=== PATIENT | male | born 1945 | race Caucasian/White ===

== ENCOUNTER 2016-12-14 03:43 | Inpatient (IN) ==
--- NOTE | 2016-12-07 11:28 | EKG Report ---
Test Performed on : 12/07/2016 10:10:01 AM Test Reason : pat Blood Pressure : / mmHG Vent. Rate : 052 BPM Atrial Rate : 052 BPM P-R Int : 168 ms QRS Dur : 070 ms QT Int : 470 ms P-R-T Axes : 018 -13 -07 degrees QTc Int : 437 ms Sinus bradycardia. Otherwise normal ECG When compared with ECG of 25-JAN-2008 10:57, aberrant conduction. is no longer present Inverted T waves have replaced nonspecific T wave abnormality in Inferior leads Confirmed by Chuck MADSEN, Jonah Alvarado ([id number]) on 12/08/2016 6:23:14 PM
[2016-12-07 11:50] LABS: HEMOGLOBIN 12.4 g/dL (14.0-18.0); MCHC 34.4 g/dL (33-37); MPV 11.3 FL (7.4-10.4)
[2016-12-07 12:11] LABS: INR 1.02; PROTIME 10.7 Seconds (9.2-11.7); PTT 26.1 Seconds (22.0-36.0)
[2016-12-07 12:37] LABS: CALCIUM 9.2 mg/dL (8.8-10.2); POTASSIUM 3.8 mmol/L (3.5-5.1)
[2016-12-14] MEDS ORDERED: KEFZOL 2 GM/D5W 2 GM/50 ML IVPB ONE (05:31)
[2016-12-14] MEDS ORDERED: LR 1,000 ML ONE (05:31)
[2016-12-14 09:41] LABS: URINE MICRO REVIEW NEEDED? NO; URINE SOURCE CATH
[2016-12-14 09:44] LABS: BILIRUBIN URINE NEGATIVE (NEGATIVE); BLOOD URINE TRACE (NEGATIVE); COLOR YELLOW; GLUCOSE URINE TRACE mg/dL (NEGATIVE); LEUKOCYTES URINE NEGATIVE (NEGATIVE); NITRITE URINE NEGATIVE (NEGATIVE); PROTEIN URINE 300 mg/dL (NEGATIVE); SP GRAVITY URINE 1.008; TURBIDITY URINE CLEAR (CLEAR); UR EPITHELIAL CELLS <10 /HPF (<10); URINE BACTERIA NEGATIVE /HPF; URINE RBC <10 /HPF (<10); URINE WBC <10 /HPF (<10); UROBILINOGEN URINE NORMAL (NORMAL)
[2016-12-14] MEDS ORDERED: NS 1,000 ML ONE (10:04)
[2016-12-14] MEDS ORDERED: FENTANYL ONE (10:16)
[2016-12-14] MEDS ORDERED: DIPRIVAN 1% ONE (10:16)
[2016-12-14] MEDS: PHENERGAN ONE ×2 (10:27→12:13)
[2016-12-14] MEDS ORDERED: EPHEDRINE ONE (11:13)
[2016-12-14] MEDS ORDERED: TORADOL ONE (11:13)
[2016-12-14] MEDS ORDERED: ZOFRAN ONE (11:13)
[2016-12-14] MEDS ORDERED: NEOSTIGMINE ONE (11:13)
[2016-12-14] MEDS ORDERED: LR 2,000 ML ONE (11:14)
[2016-12-14] MEDS ORDERED: ZEMURON ONE (11:14)
[2016-12-14] MEDS ORDERED: XYLOCAINE-MPF 2% ONE (11:14)
[2016-12-14] MEDS ORDERED: OFIRMEV 1000 MG/ISOTONIC SOLN 1,000 MG/100 ML BOTTLE ONE (11:14)
[2016-12-14] MEDS ORDERED: ROBINUL ONE (11:14)
[2016-12-14] MEDS ORDERED: DECADRON ONE (11:14)
[2016-12-14] MEDS ORDERED: QUELICIN (DOSE) ONE (11:14)
[2016-12-14] MEDS: MORPHINE ONE ×2 (12:00→12:10)
[2016-12-14] MEDS ORDERED: BENADRYL LIQUID PO PRN (15:38)
[2016-12-14] MEDS ORDERED: PHENERGAN PR PRN (15:38)
[2016-12-14] MEDS ORDERED: TYLENOL PO PRN (15:38)
[2016-12-14] MEDS ORDERED: BENADRYL IV PRN (15:38)
[2016-12-14] MEDS ORDERED: DITROPAN PO PRN (15:38)
[2016-12-14] MEDS ORDERED: B & O 15A SUPP PR PRN (15:38)
[2016-12-14] MEDS ORDERED: PHENERGAN IV PRN (15:38)
[2016-12-14] MEDS ORDERED: PHENERGAN PO PRN (15:38)
[2016-12-14] MEDS ORDERED: LABETALOL IV PRN (15:38)
[2016-12-14] MEDS ORDERED: SODIUM CHLORIDE 0.9% INJ PRN (15:38)
[2016-12-14] MEDS ORDERED: NORCO-7.5 PO PRN (15:38)
[2016-12-14] MEDS ORDERED: ZOFRAN IV PRN (15:38)
[2016-12-14] MEDS ORDERED: MORPHINE IV PRN (15:38)
[2016-12-14] MEDS ORDERED: NS 1,000 ML IV SCH (16:00)
[2016-12-14] MEDS ORDERED: NORCO-7.5 PO SCH (17:00)
[2016-12-14] MEDS: HUMALOG SUBQ SCH (17:40)
[2016-12-14] MEDS: CLEOCIN PO SCH (17:41)
[2016-12-14] MEDS: KEFZOL 2 GM/D5W 2 GM/50 ML IVPB IV SCH ×2 (17:41→23:29)
[2016-12-14] MEDS ORDERED: KEFLEX PO SCH (21:00)
[2016-12-14] MEDS ORDERED: ZOCOR PO SCH (21:00)
[2016-12-14] MEDS: PERIDEX MT SCH (22:00)
[2016-12-14] MEDS: COLACE PO SCH (22:01)
[2016-12-14] MEDS: HUMULIN R SUBQ SCH ×2 (22:01→22:03)
[2016-12-14] MEDS: FLEXERIL PO SCH (22:01)
[2016-12-15] MEDS: HUMULIN R SUBQ SCH (04:16)
[2016-12-15 05:47] LABS: HEMATOCRIT 32.6 % (42.0-52.0); HEMOGLOBIN 10.8 g/dL (14.0-18.0); MCH 30.3 PG (27-31); MCHC 33.1 g/dL (33-37); MCV 91.6 FL (81-99); MPV 11.5 FL (7.4-10.4); RBC 3.56 XMIL (4.7-6.1)
[2016-12-15 05:56] LABS: CALCIUM 8.7 mg/dL (8.8-10.2); POTASSIUM 4.4 mmol/L (3.5-5.1)
[2016-12-15] MEDS ORDERED: PRILOSEC PO SCH (07:00)
[2016-12-15 07:38] VITALS: BP 195/88
[2016-12-15] MEDS: PERIDEX MT SCH (08:39)
[2016-12-15] MEDS: FLEXERIL PO SCH (08:40)
[2016-12-15] MEDS: CLEOCIN PO SCH (08:40)
[2016-12-15] MEDS: COLACE PO SCH (08:40)
[2016-12-15] MEDS: KEFZOL 2 GM/D5W 2 GM/50 ML IVPB IV SCH (08:48)
[2016-12-15] MEDS: HUMALOG SUBQ SCH (08:49)
[2016-12-15] MEDS ORDERED: APRESOLINE PO SCH (09:00)
[2016-12-15] MEDS ORDERED: NORVASC PO SCH (09:00)
[2016-12-15] MEDS ORDERED: COZAAR PO SCH (09:00)
[2016-12-15] MEDS ORDERED: PERICOLACE PO SCH ×2 (09:00)
[2016-12-15] MEDS ORDERED: KEFLEX PO SCH (21:00)
--- NOTE | 2016-12-18 15:43 | OPERATIVE NOTE ---
PROCEDURE DATE: 12/14/2016 PREOPERATIVE DIAGNOSIS: Intermediate risk prostate adenocarcinoma, elevated prostate-specific antigen (PSA). POSTOPERATIVE DIAGNOSIS: Intermediate risk prostate adenocarcinoma, elevated prostate-specific antigen (PSA). PROCEDURES PERFORMED: Robotic-assisted laparoscopic prostatectomy with bilateral pelvic lymph node dissection and laparoscopic urethral suspension. SURGEON: Maxim Harris MD INDICATIONS: This is a 71-year-old male who presented with elevated PSA. He underwent 4K score testing, which was concerning. He underwent prostate biopsy, which revealed multifocal Umpire 7 and 6 prostate adenocarcinoma. He elected to proceed with intervention. He was counseled on the risks. FINDINGS: Watertight vesicourethral anastomosis, adequate urethral suspension. DESCRIPTION OF PROCEDURE: After obtaining informed consent, the patient was brought to the operating room. Perioperative antibiotics and general endotracheal anesthesia were administered. He was placed in lithotomy position and prepped and draped in a sterile fashion. An 18-Telugu Cooney catheter was introduced with return of clear urine. The Veress needle was introduced through the umbilicus and connected to a saline-filled syringe. We confirmed positive drop test, followed by aspiration of fluid in the syringe without evidence of GI contents or blood noted. We then insufflated his pneumoperitoneum to 15 mmHg. Following that, we marked out trocar sites in the standard prostatectomy fashion. A 12 mm camera trocar was introduced after Bovie electrocautery incised the skin. Examination of the abdominal cavity revealed no evidence of significant adhesions with the exception of descending/sigmoid colon to the pelvic sidewall. I placed the rest of the trocars under direct vision. The following that, the patient was placed in steep Trendelenburg position. The robot was docked. I began by taking down the colonic adhesions along the right pelvic sidewall. We then identified the level of the rectum and incised the peritoneum approximately 3 cm above the rectum. I was able to identify the right vas deferens. I dissected and transected, followed by identification and isolation of the right seminal vesicles. The same was done on the left side. We then dissected anterior to vas deferens to the level of the prostate and posterior to vas deferens to the level of perirectal planes. We then turned attention to dropping the bladder which was done by incising lateral to each medial umbilical ligament and accessing the space of Retzius. The endopelvic fascia was exposed. A small amount of fat was cleaned off the endopelvic fascia. It was incised, allowing us to follow the prostate laterally toward the apex. The puboprostatic ligaments were sharply incised. The superficial dorsal venous complex was controlled with Bovie electrocautery and the deep dorsal venous complex was controlled with 0 V- Loc suture in a [id number] fashion with periosteal elevation. We then turned attention to the level of the bladder neck, which was identified by tugging on the Cooney. Monopolar cautery was used to incise to the level of the bladder neck until the Cooney catheter was visible. The bladder neck was then excised circumferentially and the prostate was elevated with assisting the Cooney catheter anteriorly. I developed a plane between the prostate and the bladder, dissecting it posteriorly until eventually the vas deferens and seminal vesicles came into view. Once that was done, those were placed on anterior traction, allowing us to expose the neurovascular bundles. Hem-o-edmar clips were used and cautery was avoided and neurovascular bundles were reflected laterally. The prostate was then dissected off posteriorly, leaving us just with an apex. It was transected sharply. I used partial urethral length preservation technique given his positive samples of the apex of the prostate. The urethra was then transected sharply. The prostate was delivered and placed into the EndoCatch bag. The operative field was irrigated and there was small oozing just adjacent to the deep dorsal venous complex. This was controlled with Bovie electrocautery. Following that, hemostasis appeared to be adequate. We turned attention to pelvic lymph node dissection. On the left side, the bladder was reflected medially and the lymph node package was secured and removed with the following boundaries: External iliac vein superolaterally up to its confluence into the common iliac vein, pelvic sidewall laterally, perivesical fat medially, obturator vessels, and obturator vessels and nerve posteriorly. The nerve was seen and preserved. We then placed Surgicel hemostatic agent in the lymphadenectomy bed and decreased pneumoperitoneal pressure, without evidence of bleeding. We performed the exact same maneuver on the right side with identical landmarks. Surgicel hemostatic agent was placed in that lymphadenectomy bed as well. The lymph nodes were added to the EndoCatch bag. We then turned attention to the vesicoureteral anastomosis. A 3-0 V-Loc suture was used in a running fashion to reapproximate the perivesical and periurethral fascia. Those sutures were left intact. We then performed a formal anastomosis with a 3-0 running V-Loc suture by reapproximating the lip of the urethra and the bladder in a clockwise and counterclockwise fashion and cross-tying the sutures. We then placed a fresh 18-Telugu Cooney catheter and tested the vesicoureteral anastomosis with 240 mL of normal saline. There was no evidence of leakage. Once we were satisfied with that, we performed laparoscopic urethral suspension by using previously placed 3-0 V-Loc suture and suspending the urethra through the periosteum of the pubis on either side laterally. Once that was done, we decreased pneumoperitoneal pressure down to 3 mmHg without any evidence of active bleeding. We then undocked the robot. The trocars were removed, supraumbilical incision was extended, prostate was delivered, wounds were irrigated, and 0 Vicryl sutures were used to close supraumbilical as well as commissary assistant port fascia in an interrupted [id number] fashion. The wounds were irrigated again, 4-0 Monocryl sutures were used for subcuticular closure, and Dermabond skin adhesive was applied over the skin. He was extubated and taken to the PACU for further recovery. ESTIMATED BLOOD LOSS: 150 mL. COMPLICATIONS: None. DISPOSITION: To PACU and subsequently the floor for observation with Cooney catheter to gravity drainage. cc: Maxim Harris MD
== END 2016-12-15 09:57 | disposition home or self-care (01) ==
LOC: DIRADM 03:43 → 4N 14:51
PROVIDERS: ADMIT Urology; ATTEND Urology

== ENCOUNTER 2019-04-11 10:22 | Inpatient (IN) ==
--- NOTE | 2019-04-11 10:51 | Diag Imaging Result Doc PS360 ---
EXAM: CHEST-1 VIEW 04/11/2019 HISTORY: diff breathing TECHNIQUE: AP portable at 1044 COMMENT: There is dense alveolar opacification of the right lower lobe. There may be a small pleural effusion on the right. This was not present on 01/17/2019. IMPRESSION: Right lower lobe pneumonia. Electronically signed by Camilo Madden 04/11/2019 10:49 AM
[2019-04-11] MEDS ORDERED: DUONEB (A & A) INH ONE (11:00)
[2019-04-11] MEDS ORDERED: ZOFRAN IV ONE (11:00)
[2019-04-11] MEDS ORDERED: ROCEPHIN 1 GM in NS 50 ML IV ONE (11:15)
[2019-04-11] MEDS ORDERED: ZITHROMAX PO ONE (11:15)
[2019-04-11 12:04] LABS: BASO# 0.02 X1000 (0.0-0.2); BASO% 0.2 % (0.0-0.8); HEMATOCRIT 26.7 % (42.0-52.0); HEMOGLOBIN 8.7 g/dL (14.0-18.0); IMM GRAN# 0.02 X1000 (0.0-0.04); IMM GRAN% 0.2 % (0.0-0.5); LYMPH# 0.94 X1000 (1.2-3.4); LYMPH% 8.4 % (20.5-51.1); MCH 29.2 PG (27-31); MCHC 32.6 g/dL (33-37); MCV 89.6 FL (81-99); MONO# 1.08 X1000 (0.11-0.59); MONO% 9.7 % (1.7-9.3); MPV 11.9 FL (7.4-10.4); NEUT# 9.13 X1000 (1.4-6.5); NEUT% 81.5 % (42.2-75.2); PLT 194 X1000 (130-400); RBC 2.98 XMIL (4.7-6.1); WBC 11.19 X1000 (4.8-10.8)
[2019-04-11 12:08] LABS: INR 1.35; PROTIME 16.9 Seconds (11.0-16.0)
[2019-04-11 12:12] LABS: ALB/GLOB RATIO 1.1; ALBUMIN 3.5 g/dL (3.5-5.0); CALCIUM 8.2 mg/dL (8.8-10.2); CREATININE 3.1 mg/dL (0.7-1.2); TOTAL BILIRUBIN 0.76 mg/dL (0.20-1.00); TOTAL PROTEIN 6.8 g/dL (6.3-8.3)
--- NOTE | 2019-04-11 12:31 | PROVIDER DOCUMENTATION ---
This chart was entered by Kayla Crockett Scribe, acting as scribe for Steven Mar MD. HPI-General Adult - General Chief Complaint: N/V/D Stated Complaint: N/V Time Seen by Provider: 04/11/19 10:40 Source: patient Allergies/Adverse Reactions: Patient Allergies Allergy/AdvReac Type Severity Reaction Status Date / Time Sulfa (Sulfonamide Allergy RASH Verified 12/04/16 08:43 Antibiotics) Home Medications: Home Medication List Medication Instructions Recorded Confirmed Last Taken Type Losartan [Cozaar] 50 mg PO DAILY 08/25/12 12/07/16 12/13/16 05:00 History Amlodipine Besylate [Norvasc] 10 mg PO DAILY 12/04/16 12/07/16 12/13/16 05:00 History Cyclobenzaprine [Flexeril] 10 mg PO TID 12/04/16 12/07/16 12/13/16 20:00 History Hydrocodone/Acetaminophen [[place] 1 each PO TID 12/04/16 12/07/16 12/13/16 20:00 History 7.5-325 Tablet] Omeprazole [Prilosec] 40 mg PO DAILY 12/04/16 12/07/16 12/13/16 05:00 History Cephalexin [Keflex] 500 mg PO BID 12/07/16 12/07/16 12/13/16 20:00 History Clindamycin HCl 300 mg PO TID 12/07/16 12/07/16 12/13/16 20:00 History Hydralazine HCl 100 mg PO DAILY 12/07/16 12/07/16 12/13/16 05:00 History Insulin Aspart [Novolog] 45 unit SQ TID 12/07/16 12/07/16 12/13/16 20:00 History SIMVAstatin [Zocor] 40 mg PO QHS 12/07/16 12/07/16 12/13/16 20:00 History Sennosides/Docusate Sodium 1 each PO DAILY 12/07/16 12/07/16 12/13/16 05:00 History [Pericolace] Sennosides/Docusate Sodium 1 each PO DAILY 12/07/16 12/07/16 12/13/16 05:00 History [Senna-S Tablet] Cephalexin [Keflex] 500 mg PO BID #6 capsule 12/15/16 Unknown Rx Hydrocodone/Acetaminophen [[place] 1 each PO Q6HR PRN #15 tablet 12/15/16 Unknown Rx 10-325 Tablet] Oxybutynin [Ditropan] 5 mg PO TID PRN #20 tablet 12/15/16 Unknown Rx - History of Present Illness -Gen Adult Nature of Presenting Problems: Patient is a 73 year old male who presents with nausea, vomiting, diarrhea and shortness of breath. States symptoms have been present for 3 days. Denies abdominal pain and fever. Location of Pain/Injury: reports: none Pain Radiation: reports: no radiation Quality of Pain: reports: none Severity: reports: mild Onset/Duration: reports: 3 days ago Timing: reports: still present Context/Activities at Onset: reports: light activity Associated Symptoms: reports: diarrhea, nausea, shortness of breath, vomiting Similar Symptoms Previously?: Yes Recently seen or treated by another doctor?: No Review of Systems - Adult - REVIEW OF SYSTEMS - ADULT Constitutional: reports: no symptoms reported. denies: chills, fever, fatique Eyes: reports: no symptoms reported Ears, Nose, Mouth & Throat: reports: no symptoms reported Cardiovascular: reports: no symptoms reported Respiratory: reports: chronic cough, shortness of breath. denies: wheezing Gastrointestinal: reports: see HPI, diarrhea, nausea, vomiting. denies: abdom inal pain Genitourinary: reports: no symptoms reported Musculoskeletal: reports: no symptoms reported Integumentary: reports: no symptoms reported Neurological: reports: no symptoms reported Psychiatric: reports: no symptoms reported Endocrine: reports: no symptoms reported Hematologic/Lymphatic: reports: no symptoms reported Allergic/Immunologic: reports: no symptoms reported All Other Systems: Reviewed and Negative Past History - Adult - PAST MEDICAL HISTORY-ADULT Review of Records: reports: Old Records Reviewed, Nursing Assessment Review, Medications Reviewed, Social history reviewed & non-contributory. Major Childhood Illnesses: reports: denies history Cardiovascular: reports: HTN, hyperlipidemia Respiratory: reports: denies history Gastrointestinal: reports: GERD Obstetrical/Gynecological: reports: denies history Genitourinary: reports: prostate cancer Musculoskeletal: reports: denies history Neurological: reports: denies history Endocrine/Immune: reports: Diabetes Other Conditions: reports: denies history - PRIOR SURGERIES/PROCEDURES Surgical/Procedure History: reports: appendectomy, joint replacement - IMMUNIZATION STATUS Childhood Immunizations: See Nurse Assessment Flu Vaccine: See Nurse Assessment - FAMILY HISTORY Family History: reviewed, not pertinent - SOCIAL HISTORY Smoking: cigarettes (former) Substance Use: denies Physical Exam-General - PHYSICAL EXAM-ADULT Initial Vital Signs Reviewed: Yes - CONSTITUTIONAL General Appearance: alert, no apparent distress. negative: lethargic - EYES Eyes: PERRL/EOMI. negative: scleral icterus, sunken eyes - HEAD, EARS, NOSE, MOUTH & THROAT HENMT: normocephalic/atraumatic, other (dry mucous membranes). negative: angioedema - RESPIRATORY Respiratory: chest non-tender, crackles (bilateral bases), wheezing (bilateral), other (shallow breaths). negative: accessory muscle use - CARDIOVASCULAR Cardiovascular: normal peripheral pulses, regular rate, rhythm. negative: tachycardia - GASTROINTESTINAL (ABDOMEN) Abdominal Exam: normal bowel sounds, non tender, soft. negative: guarding, rebound - MUSCULOSKELETAL Extremity: non-tender, other (2 + pitting edema to bilateral lower extremities.) . negative: deformity, erythema - SKIN Integumentary: normal color, normal turgor, warm/dry. negative: diaphoresis, ecchymosis, rash - NEUROLOGIC Neurologic: grossly normal. negative: aphasia, facial droop - PSYCHIATRIC Psych/Mental Status: normal mood/affect, oriented x 3. negative: anxious Progress - PLAN OF CARE/RESULTS Progress/Plan/Lab Results: Vital Signs - 8 hr 04/11/19 10:27 Temperature 98.0 F Pulse Rate 113 H Respiratory Rate 24 Blood Pressure 144/65 O2 Sat by Pulse Oximetry 87 L Orders Category Date Time Status Cardiac Monitoring DIRECTED Care 04/11/19 10:30 Active IV Insertion ORDERED Care 04/11/19 10:30 Active Notify MD of + Sepsis Screen NOW Care 04/11/19 10:30 Active Notify Physician As Ordered Care 04/11/19 10:30 Active CHEST-1 VIEW [RAD] Stat Exams 04/11/19 10:30 Completed BLOOD CULTURE [BLDCUL] Stat Lab 04/11/19 10:30 Uncollected CBC WITH DIFF [HEME] Stat Lab 04/11/19 10:30 Uncollected CK PROFILE [SP CHEM] Stat Lab 04/11/19 10:30 Uncollected COMPREHENSIVE METABOLIC PANEL [CHEM] Stat Lab 04/11/19 10:30 Uncollected LACTATE, PLASMA [CHEM] Q3H Lab 04/11/19 10:30 Uncollected LACTATE, PLASMA [CHEM] Q3H Lab 04/11/19 13:30 Uncollected LACTATE, PLASMA [CHEM] Q3H Lab 04/11/19 16:30 Uncollected PROTIME WITH INR [COAG] Stat Lab 04/11/19 10:30 Uncollected PTT [COAG] Stat Lab 04/11/19 10:30 Uncollected TROPONIN T Stat Lab 04/11/19 10:30 Uncollected URINALYSIS W/POSS RFLX CULT [URINALYSIS] Stat Lab 04/11/19 10:30 Uncollected Oxygen Device Stat Oth 04/11/19 10:30 Active Result Diagrams: 04/11/19 11:24 04/11/19 11:24 - EKG 1 Time of EKG reading by physician:: 11:17 EKG Read and Signed by:: Steven Mar EKG Interpretation (*Must complete 3 of following elements*): Abnormal Rate: 125 Rhythm: atrial fibrillation with rapid ventricular response [place]: normal Comments: abnormal ECG - XRAY 1 XRAY Study: Chest Impression: See EMR Report (EXAM: CHEST-1 VIEW 04/11/2019 HISTORY: diff breathing TECHNIQUE: AP portable at 1044 COMMENT: There is dense alveolar opacification of the right lower lobe. There may be a small pleural effusion on the right. This was not present on 01/17/2019. IMPRESSION: Right lower lobe pneumonia. Electronically signed by Camilo Madden 04/11/2019 10:49 AM 04/11/19 1049 Interpreting Physician: Camilo Madden MD Dictated Date/Time: 04/11/19 1048 cc: Steven Mar MD; Kirby Osorio MD) - CONSULTS/PCP/HOSPITALIST Notification #1 *Consult/PCP/Hospitalist*: SHAKEEL Chandler for Hospitalist Time Discussed: 12:28 Reason/Comments: Dr. Mar consulted with Geraldine about patient. Consult Disposition: Will see in ED, Admit Departure - Departure Date of Disposition Decision: 04/11/19 Time of Disposition Decision: 12:28 DIAGNOSIS: CHEMO (acute kidney injury), Chronic atrial fibrillation Right lower lobe pneumonia Qualifiers: Pneumonia type: due to unspecified organism Qualified Code(s): J18.1 - Lobar pneumonia, unspecified organism Disposition: ADMITTED INPATIENT 09 Certified Medical Emergency: Emergent Condition: Stable Referrals and Follow-Ups: Kirby Osorio MD [Primary Care Provider] - - Critical Care Note This patient required my direct & personal management of CC.: No Attestation - Physician/ MCKINLEY Attestation Patient care was provided by Advanced Practice Provider:: No The physician spent face to face time with patient:: Yes Advanced Practice Provider documentation review:: Supervising physician onsite and consulted in the evaluation and care of this patient. The physician did have a face to face encounter with the patient. This chart was documented by the indicated scribe, (Kayla Crockett Scribe) and accurately reflects the services I performed and decisions made by me, Steven Mar MD, as attested by the provider's signature.
[2019-04-11 12:40] LABS: CK INDEX 0.4 (0.0-2.5); CK-MB 4.92 ng/mL (0.0-5.0)
[2019-04-11 12:57] LABS: URINE SOURCE CLEAN CATCH
[2019-04-11 13:01] LABS: BILIRUBIN URINE NEGATIVE (NEGATIVE); BLOOD URINE MODERATE (NEGATIVE); COLOR YELLOW; GLUCOSE URINE TRACE mg/dL (NEGATIVE); KETONE URINE TRACE mg/dL (NEGATIVE); LEUKOCYTES URINE NEGATIVE (NEGATIVE); NITRITE URINE NEGATIVE (NEGATIVE); PROTEIN URINE 300 mg/dL (NEGATIVE); SP GRAVITY URINE 1.019; TURBIDITY URINE HAZY (CLEAR); UROBILINOGEN URINE NORMAL (NORMAL)
[2019-04-11] MEDS ORDERED: CARDIZEM IV ONE ×2 (13:07→15:54)
[2019-04-11 13:14] LABS: UR EPITHELIAL CELLS <10 /HPF (<10); URINE BACTERIA NEGATIVE /HPF; URINE WBC <10 /HPF (<10)
[2019-04-11 13:19] LABS: ALLEN TEST YES; BE -1.9 mmoll (-3.0-3.0); BLOOD TYPE ARTERIAL; HCO3-(ACT) 23.3 mmoll (20.0-26.0); O2(CT) 12.1 mL/dL (15.0-23.0); O2HB 90.1 % (95.0-99.0); PCO2(98.6) 29 mmHg (35-45); PO2(98.6) 55 mmHg (60-100); SAMPLE BLOOD; SAO2 92.7 % (95.0-100.0); THB 9.5 g/dL (11.5-17.4); pH(98.6) 7.47 (7.35-7.45)
[2019-04-11 13:20] LABS: MODALITY CANNULA
[2019-04-11 14:05] LABS: URINE CASTS NONE SEEN
[2019-04-11] MEDS ORDERED: NS 1,000 ML IV SCH ×2 (14:24→15:59)
[2019-04-11] MEDS ORDERED: ZOFRAN IV PRN (14:24)
[2019-04-11] MEDS ORDERED: TYLENOL PO PRN (14:24)
[2019-04-11] MEDS ORDERED: LEVAQUIN 500 MG/D5W 500 MG/100 ML IVPB IV ONE (14:24)
--- NOTE | 2019-04-11 15:03 | ED EKG INTERP ---
This chart was entered by Kayla Crockett Scribe, acting as scribe for Steven Mar MD. EKG Interpretation - EKG Time of EKG reading by physician:: 13:10 EKG Read and Signed by:: Steven Mar EKG Interpretation (*Must complete 3 of following elements*): Abnormal (rhythm - atrial fibrillation with rapid ventricular responsive with premature ventricular or aberrantly conducted complexes) Rate: 122 [place]: normal Comments: nonspecific ST and T wave abnormality. Attestation - Physician/ MCKINLEY Attestation The physician spent face to face time with patient:: Yes Advanced Practice Provider documentation review:: Supervising physician onsite and consulted in the evaluation and care of this patient. The physician did have a face to face encounter with the patient. This chart was documented by the indicated scribe, (Kayla Crockett Scribe) and accurately reflects the services I performed and decisions made by me, Steven Mar MD, as attested by the provider's signature.
--- NOTE | 2019-04-11 15:08 | EKG Report ---
Test Performed on : 04/11/2019 11:17:49 AM Test Reason : ED. No order in [place] Blood Pressure : / mmHG Vent. Rate : 125 BPM Atrial Rate : 300 BPM P-R Int : 000 ms QRS Dur : 062 ms QT Int : 316 ms P-R-T Axes : 000 000 -11 degrees QTc Int : 456 ms Atrial fibrillation. with rapid ventricular response. Abnormal ECG When compared with ECG of 07-DEC-2016 10:10, Atrial fibrillation. has replaced Sinus rhythm. Vent. rate has increased BY [address] now depressed in Anterior leads T wave amplitude has decreased in Anterior leads Unconfirmed Result
--- NOTE | 2019-04-11 15:08 | EKG Report ---
Test Performed on : 04/11/2019 1:10:39 PM Test Reason : ADMIT Blood Pressure : / mmHG Vent. Rate : 122 BPM Atrial Rate : 090 BPM P-R Int : 000 ms QRS Dur : 066 ms QT Int : 320 ms P-R-T Axes : 000 001 -24 degrees QTc Int : 456 ms Atrial fibrillation. with rapid ventricular response. with premature ventricular or aberrantly conduc jose complexes. Nonspecific ST and T wave abnormality Abnormal ECG When compared with ECG of 11-APR-2019 11:17, (Unconfirmed) No significant change was found Unconfirmed Result
--- NOTE | 2019-04-11 15:34 | HISTORY AND PHYSICAL ---
PRIMARY CARE PROVIDER: DR. Kirby Osorio. RENAL: Dr. Steiner. CHIEF COMPLAINT: Nausea, vomiting, diarrhea. HISTORY OF PRESENT ILLNESS: Mr. Cotton is a 73-year-old male who carries a past medical history of prostate cancer status post prostatectomy, diabetes mellitus type 2, hypertension, hypercholesterolemia, acid reflux, who reported he has been having nausea and vomiting since Monday, too many times to count. He was positive for cough, fever, chills. He denies being around any sick contacts. However, he was on an antibiotic since last week for a right lower extremity cellulitis that has now improved. Today he started with copious amounts of diarrhea. While I was in the room he appeared to be in atrial fibrillation. When I looked back on the EKG, he was in atrial fibrillation with RVR. Highest heart rate I saw was in the 140s. Workup in the ED also revealed a right lower lobe pneumonia with slightly elevated white count of 11. Still pending lactate. He was initiated on IV antibiotics. He was also found to have an increase in his renal function from his baseline. He does appear to have some chronic kidney disease. We will place him on PVC. We will continue with aggressive hydration. Continue with broad-spectrum antibiotics. Check stool studies. We will give him a dose of Cardizem now. Reassess his EKG to see if we need to place him on a Cardizem drip. We will consult Cardiology as well as get an echocardiogram and do a CK and troponin profile. PAST MEDICAL HISTORY: 1. Chronic kidney disease. 2. Diabetes mellitus. 3. Hypertension. 4. Prostate cancer. 5. Acid reflux. 6. Hypertension. 7. Hypercholesterolemia. PAST SURGICAL HISTORY: Prostatectomy. SOCIAL HISTORY: He is . No alcohol, tobacco, or illicit drug use. FAMILY HISTORY: Father, mother, brother, sister all positive for diabetes. Father and mother, hypercholesterolemia. Hypertension in father, mother, brother, sister. ALLERGIES: Sulfa causes a rash. HOME MEDICATIONS: Have not been verified. Currently being compiled. REVIEW OF SYSTEMS: Twelve-point review of systems completely negative except for those mentioned in HPI. PHYSICAL EXAMINATION: VITAL SIGNS: Temperature is 98 degrees, heart rate anywhere from 120s to 140s, respirations 24, blood pressure 144/65. Initial O2 saturation was 87% on room air. He is now 91 to 92. Had to be bumped up to 4 L. GENERAL: Mr. Cotton is an ill-appearing, 73-year-old male who is lying on the stretcher, in no acute distress. HEENT: Atraumatic, normocephalic. PERRL. NECK: Supple. Trachea midline. CARDIOVASCULAR: Irregularly irregular rhythm. No murmurs, gallops, or rubs noted. RESPIRATORY: Lung sounds decreased bilaterally in the bases. Did not appreciate any rhonchi or wheezes. GI: Soft, nontender, nondistended. Positive bowel sounds 4 quadrants. EXTREMITIES: Lower extremities, bilateral pedal pulses were bounding. His right lower extremity was slightly swollen. He was diagnosed with right cellulitis last week. There is no redness or erythema. NEUROLOGIC: No focal deficits noted. DIAGNOSTIC DATA: Chest x-ray: Right lower lobe pneumonia. Pending echocardiogram. Repeat EKG. First EKG showed atrial fibrillation with RVR. LABORATORY DATA: White count 11, hemoglobin and hematocrit 8 and 26, platelet count is 194,000. Sodium 134, potassium 4, BUN 40, creatinine 3.1, blood glucose is 97. Pending cardiac profile, troponins, proBNP, as well as ABG. ASSESSMENT AND PLAN: 1. Nausea, vomiting, diarrhea. Patient just finished a round of antibiotics for right lower extremity cellulitis. We will check C. difficile colitis, WBCs, ova and parasites. We will continue with Zofran p.r.n. for antiemetic. 2. Right lower lobe pneumonia. We will continue with Rocephin and levofloxacin renally dosed. Aggressive pulmonary toilet. Continue supplemental O2. 3. Hypoxemia. We will continue with supplemental O2. We will check an ABG. 4. Acute kidney injury on chronic kidney disease. We will continue with aggressive IV hydration. Recheck his renal function in the a.m. 5. Atrial fibrillation with rapid ventricular response. We will do 1 dose of IV Cardizem. Recheck his EKG. Consult Cardiology. Echocardiogram. Continue to trend his cardiac enzymes. 6. Diabetes mellitus type 2. We will place him on pattern blood sugars with sliding scale insulin. 7. Prostate cancer, status post prostatectomy. 8. Hypercholesterolemia. 9. Hypertension. 10. Gastroesophageal reflux disease. 11. Further recommendation to follow physician evaluation, laboratory and diagnostic data. Dictated by ALEXANDRA Olivera for MD Julio Cesar Diop#: [id number] cc: MD Kirby Phillip MD Reginald D. Gladish, MD Raphael K. Quansah, MD
[2019-04-11] MEDS ORDERED: CARDIZEM 100 MG/NS 100 MG/100 ML IVPB IV SCH (16:00)
[2019-04-11] MEDS ORDERED: COUMADIN PO ONE (16:06)
[2019-04-11 16:09] LABS: CK INDEX 0.5 (0.0-2.5); CK-MB 4.62 ng/mL (0.0-5.0)
[2019-04-11] MEDS: ZYVOX 600 MG/D5W 600 MG/300 ML IVPB IV SCH (16:29)
[2019-04-11] MEDS: HUMALOG SUBQ SCH ×2 (16:29→21:01)
[2019-04-11] MEDS: CARDIZEM 125 MG in NS 100 ML IV PRN (16:43)
--- NOTE | 2019-04-11 17:42 | HISTORY AND PHYSICAL ---
ADDENDUM REPORT: I have seen and examined Mr. Cotton. Mr. Cotton has a history of paroxysmal atrial fibrillation, diabetes mellitus, hypertension, and CKD. Follows up with Dr. Liao and Dr. Steiner. Came to the emergency department because of about a 2-week history of shortness of breath and cough. He also has about a day history of vomiting and 1-day history of diarrhea. Since about a week ago, Mr. Cotton was treated with Keflex for a cellulitis on the right lower extremity. Upon presenting to the emergency department, he was evaluated and was found to be tachycardic with atrial fibrillation. His pulse oximeter was 87 on room air, and his blood pressure was normal. PHYSICAL EXAMINATION: GENERAL: Significant on his physical exam is that he looks in mild distress. LUNGS: Air entry is bilaterally reduced. There is diffuse end-expiratory wheezing in both lungs and there are crackles more predominant in the right lower lung. ABDOMEN: Globally distended but nontender. Bowel sounds are present. CARDIOVASCULAR: His heart exam is very tachycardic and irregular. No murmurs. EXTREMITIES: Questionable trace of pedal edema. NECK: No JVD. DIAGNOSTIC STUDIES: His lab work has all been reviewed, which reveals mild elevated white cell count, normocytic anemia with normal platelet count. His chemistry shows a creatinine of 3.1, which is more than his baseline from December, which was 2.2. His troponin has slightly increased and his proBNP is also elevated. Plasma lactate is within normal range. A chest x-ray which was done on admission shows a right lower lobe pneumonia. ASSESSMENT: 1. Sepsis secondary to right lower lobe pneumonia. 2. Right lower lobe community-acquired pneumonia. 3. Suspected underlying chronic obstructive pulmonary disease with wheezing, which could be a mild exacerbation. 4. Paroxysmal atrial fibrillation with rapid ventricular response. 5. Possible congestive heart failure with preserved ejection fraction due to atrial fibrillation. 6. Acute on chronic kidney failure, presumably from both prerenal and possible intrarenal courses. 7. Mildly elevated troponins, most likely due to demand mismatch. 8. Normocytic anemia. Noted. OTHER COMORBIDITIES: Include: 1. Diabetes. 2. Hypertension. 3. Suspected obstructive sleep apnea. 4. Morbid obesity. PLAN: Our plan will be to admit Mr. Cotton in [facility]. We are going to do renal studies to get a better idea on the acute renal failure. We will start him on gentle IV hydration. We will also start him on broad-spectrum IV antimicrobials, including cefepime and Zyvox. This will all be renally dosed. We will also continue with nebulization. I will start the patient on IV steroids for the severe pneumonia. He will also continue with oxygen therapy for the hypoxemic respiratory failure. We will get Cardiology as well as Nephrology to see the patient. Please refer to the details of the H P which has been dictated by the PROTECTION AGENT in the chart. cc: Emiliano Rivas MD
[2019-04-11] MEDS: MAXIPIME 1 GM in NS 50 ML IV SCH (18:23)
--- NOTE | 2019-04-11 19:23 | CONSULTATION ---
DATE OF CONSULTATION: 04/11/2019 IMPRESSION: 1. Atrial fibrillation with rapid ventricular rate. Patient appears to have transitioned from paroxysmal atrial fibrillation to persistent, possibly permanent, atrial fibrillation. He was in atrial fibrillation in August of this year. 2. Currently admitted with acute right lower lobe pneumonia. 3. Hypertension. 4. Hyperlipidemia. 5. Diabetes mellitus. 6. Chronic kidney disease. 7. Prostate cancer and previous prostate surgery. RECOMMENDATIONS: 1. Continue metoprolol 50 mg p.o. b.i.d. 2. Continue warfarin 5 mg p.o. daily. Given subtherapeutic INR, we will give additional warfarin today. 3. Utilize intravenous Cardizem to achieve better rate control pending clinical improvement in his pneumonia. 4. Followup repeat echocardiography. HISTORY: This 73-year-old, white male with past history of atrial fibrillation, hypertension, hyperlipidemia, diabetes mellitus, and chronic kidney disease was admitted to emergency room today with right lower lobe pneumonia. He was in atrial fibrillation with rapid ventricular rate, and for this reason, Cardiology was consulted. He appears to have had atrial fibrillation for well over a year and previously had been treated with amiodarone. He has also been treated with anticoagulation. He is unable to afford Eliquis and is on warfarin. He was hospitalized in [place] in August with some symptoms to suggest possible GI bleeding. Upper GI endoscopy was negative. He had a slight troponin leak, which was ultimately felt to be related to his chronic kidney disease, which is fairly significant. A Lexiscan myocardial perfusion study in August was negative. He has been doing fairly well since then. For the past 5 or 6 days, he has had nausea, vomiting and diarrhea. He has also had cough productive of what sounds like purulent sputum, although he is rather vague in describing his sputum. He has also had some chills. He has not been aware of any fever. He has not been able to eat much. He has been able to get some Gatorade down but had considerable difficulty taking solid intake. He came to the emergency room this morning and was found to have right lower lobe pneumonia on chest x-ray. He was in atrial fibrillation with rapid ventricular rate. He denies any chest pain. Recent history is also noteworthy in that last week he was treated with antibiotics for possible cellulitis in the distal right lower extremity. PAST MEDICAL HISTORY: 1. Atrial fibrillation paroxysmal in the past but more persistent and possibly permanent over the last 6 to 12 months. 2. Hypertension. 3. Hyperlipidemia. 4. Diabetes mellitus. 5. Chronic kidney disease. 6. Prostate cancer. Patient is status post previous prostate surgery. 7. Gastroesophageal reflux disease. PAST SURGICAL HISTORY: Includes left total knee replacement, right knee arthroscopic surgery, appendectomy, and unspecified prostate surgery. ALLERGIES: He is allergic or intolerant to lisinopril and sulfa medications. MEDICATIONS PRIOR TO ADMISSION: As listed. SOCIAL HISTORY: He is retired and . He quit smoking 30 years ago. He does not use alcohol. FAMILY HISTORY: Negative for premature coronary disease. REVIEW OF SYSTEMS: Pulmonary: Noteworthy for productive cough. Gastrointestinal: Noteworthy for nausea, vomiting diarrhea for the past 4 or 5 days. Constitutional: Noteworthy for chills. Patient unaware of any fevers. Remainder of review of systems negative/noncontributory with 14 total systems reviewed. PHYSICAL EXAMINATION: Genera: This is a pleasant overweight older white male in no distress on supplemental oxygen per nasal cannula. Vital signs: Blood pressure 142/75, heart rate 115 and irregular with ECG monitor showing atrial fibrillation, oxygen saturation 92% on nasal cannula oxygen. HEENT: Extraocular muscles appear intact. Mucous membranes are moist. Neck: Supple without jugular venous distention. There are no carotid bruits. Chest: Auscultation of chest reveals a few scattered expiratory wheezes. There are inspiratory crackles in the right lower half. Inspiratory crackles in the lower half of the right chest posteriorly and laterally. Cardiac Exam: Reveals an irregular rate and rhythm without appreciable murmur or gallop. Abdomen: Soft. Bowel sounds are normal. Extremities: Without edema. Neurologic Exam: Reveals him to be alert and fully oriented. Speech is fluent. He moves all 4 extremities equally well. Skin: Warm and dry. Psychiatric: Reveals mood to be appropriate. DIAGNOSTIC DATA: Twelve lead EKG demonstrates atrial fibrillation with rapid ventricular rate and nonspecific ST and T-wave abnormality. Laboratory data includes a white blood cell count of 11.19, hematocrit 26.7, hemoglobin 8.7, platelet count 194,000, INR 1.35, protime 16.9, sodium 134, potassium 4.0, chloride 97, carbon dioxide 22, BUN 40, creatinine 3.1, glucose 97, CPK 979, CPK MB 4.62, CPK MB index 0.5, troponin T 0.093. Chest x-ray is reviewed and demonstrates alveolar infiltrate in the right lower lobe. cc: Lacho Fox MD
[2019-04-11] MEDS: COUMADIN PO SCH (21:01)
[2019-04-11] MEDS: LOPRESSOR PO SCH (21:01)
[2019-04-11 22:52] LABS: CK INDEX 0.8 (0.0-2.5); CK-MB 7.2 ng/mL (0.0-5.0)
[2019-04-12] MEDS: DUONEB (A & A) INH PRN ×5 (00:08→21:15)
[2019-04-12 00:43] LABS: UR CREAT RANDOM 127.6 mg/dL (14-26)
[2019-04-12] MEDS: ZYVOX 600 MG/D5W 600 MG/300 ML IVPB IV SCH ×2 (03:28→15:19)
[2019-04-12] MEDS: MAXIPIME 1 GM in NS 50 ML IV SCH ×3 (05:19→17:46)
[2019-04-12] MEDS: CARDIZEM 125 MG in NS 100 ML IV PRN (05:19)
[2019-04-12 05:36] LABS: INR 1.58; PROTIME 19.2 Seconds (11.0-16.0)
[2019-04-12 05:45] LABS: BASO# 0.02 X1000 (0.0-0.2); BASO% 0.2 % (0.0-0.8); HEMATOCRIT 25.5 % (42.0-52.0); HEMOGLOBIN 8.2 g/dL (14.0-18.0); LYMPH# 0.83 X1000 (1.2-3.4); LYMPH% 8.8 % (20.5-51.1); MCH 28.8 PG (27-31); MCHC 32.2 g/dL (33-37); MCV 89.5 FL (81-99); MONO# 0.81 X1000 (0.11-0.59); MONO% 8.6 % (1.7-9.3); MPV 11.5 FL (7.4-10.4); NEUT# 7.78 X1000 (1.4-6.5); NEUT% 82.4 % (42.2-75.2); PLT 196 X1000 (130-400); RBC 2.85 XMIL (4.7-6.1); RDW 12.8 % (11.5-14.5); WBC 9.44 X1000 (4.8-10.8)
[2019-04-12 05:55] LABS: ALB/GLOB RATIO 1.2; CALCIUM 8.3 mg/dL (8.8-10.2); CREATININE 2.9 mg/dL (0.7-1.2); TOTAL BILIRUBIN 0.51 mg/dL (0.20-1.00); TOTAL PROTEIN 5.6 g/dL (6.3-8.3)
[2019-04-12] MEDS: HUMALOG SUBQ SCH ×5 (06:22→20:05)
[2019-04-12 06:25] LABS: CK INDEX 0.8 (0.0-2.5); CK-MB 5.69 ng/mL (0.0-5.0)
--- NOTE | 2019-04-12 06:34 | Diag Imaging Result Doc PS360 ---
CHEST-PORTABLE - 04/12/2019 INDICATION: Pneumonia COMPARISON: 04/11/2019 FINDINGS: Stable dense alveolar infiltrate in the right lung base. There is some patchy infiltrate in the left lung base as well, more visible on today's exam. Heart size is normal. No pneumothorax or pleural effusion. IMPRESSION: Stable dense pneumonia in the right lung base. Worsening hazy pneumonia in the left lung base. Electronically signed by Jatin Peralta 04/12/2019 6:31 AM
[2019-04-12] MEDS ORDERED: LASIX IV ONE (08:30)
[2019-04-12] MEDS: LANOXIN PO SCH (08:55)
[2019-04-12] MEDS: LOPRESSOR PO SCH ×2 (08:55→20:05)
[2019-04-12] MEDS: SOLU-MEDROL IV SCH ×2 (08:55→20:05)
[2019-04-12] MEDS ORDERED: ROCEPHIN 1 GM in NS 50 ML IV SCH (11:00)
[2019-04-12] MEDS ORDERED: ZITHROMAX 500 MG/NS 500 MG/250 ML IVPB IV SCH (11:00)
[2019-04-12] MEDS ORDERED: GAMUNEX-C 10% IV STA (11:30)
--- NOTE | 2019-04-12 12:01 | PROGRESS NOTE ---
DATE: 04/12/2019 SUBJECTIVE: This morning Mr. Cotton referred to be doing a little better. He had more difficulty breathing yesterday and had to be put on a BiPAP. However, this morning he refers to be a little better. OBJECTIVE: Vital Signs: Blood pressure is 148/88, pulse of 99, respiration 32, temperature 98 degrees. Patient is saturating 92% on the Venturi mask. General: Objectively Mr. Cotton is a 74-year-old male. He is in bed. He is in mild respiratory distress with a rate of about 30. HEENT: Mucosa is pink and moist. Anicteric. Acyanotic. Neck: Supple. Chest: Air entry is bilaterally reduced. There is still some diffuse expiratory wheezing. There are also crackles in the posterior lung ruvalcaba. Cardiovascular: Tachycardic, still atrial fibrillation. GI: Abdomen is soft, nontender. Bowel sounds present. Extremities: No pedal edema. CASER UP: Patient is awake, alert, and oriented. There is no focal neurological deficit. LABORATORY DATA: Laboratory data has also been reviewed. Patient still has normocytic anemia with normal WBC and normal platelet count. Chemistry shows sodium of 128, bicarb of 19, gap is 14, BUN is 42, creatinine is 2.9, which is slightly improved from yesterday. AST and ALT are minimally elevated. Total bilirubin is normal. IgG level is ridiculously low. IMAGING: A chest x-ray this morning seems to suggest stable dense pneumonia in the right lung base. There is some worsening hazy pneumonia on the left lung, which was not the case yesterday. ASSESSMENT: 1. Acute hypoxemic respiratory failure secondary to multifocal pneumonia. The patient had to be placed on BiPAP yesterday. He is currently on a Venturi mask and saturating about 92. I am concerned that he might probably get tired or the Venturi mask/BiPAP might not meet his oxygen demands and he might up getting intubated. We are going to, therefore, transfer him to the ICU for very close monitoring. 2. Sepsis secondary to pneumonia. The patient is currently on cefepime and Zyvox. 3. Multifocal community-acquired pneumonia with severe immunoglobulin deficiency. The patient is on antimicrobial therapy. We will give him also immunoglobulin supplementation. Sputum cultures and blood cultures have all been done and we are pending the results. We will consult ID to help with the antimicrobial therapy. 4. Suspected underlying chronic obstructive pulmonary disease with bronchospasm concerning for exacerbation. Patient is on standard therapy including nebulization, antimicrobial therapy, and we have also started him on steroids. 5. History of paroxysmal atrial fibrillation with rapid ventricular response on presentation. The patient has been evaluated by Cardiology. We have added digoxin this morning to his medication because of continued elevated pulse rate. 6. Congestive heart failure, presumably with preserved ejection fraction due to atrial fibrillation. 7. Acute on chronic kidney failure. Creatinine is trending down. It is almost at baseline. The patient has been evaluated by Nephrology. 8. Mildly elevated troponin, presumably due to demand mismatch. 9. Normocytic anemia noted. So, in general, Mr. Cotton is quite complicated. He is currently on a Venturi mask and, even on that, his oxygen demand seems not to have been met. A chest x-ray this morning seems to be worsening and I am concerned that his respiratory status will just does get worse. We are going to transfer him to the ICU. We will also get Pulmonary Medicine and Infectious Disease to see him. The patient is already being seen by Cardiology and Nephrology. Critical time spent: 45 minutes cc: Emiliano Rivas MD MTDD
--- NOTE | 2019-04-12 12:17 | NEPHROLOGY CONSULTATION ---
DATE: 04/12/2019 ATTENDING PHYSICIAN: Dr. Rivas. REASON FOR CONSULTATION: Worsening renal function. Evaluate and treat. HISTORY OF PRESENT ILLNESS: Mr. Cotton is a 73-year-old white male who follows with us. His last office visit was on 01/07/2019. At that time, his creatinine was 2.8 and his baseline seems to range between 2.2 and 2.8 with GFR between 20 and 25. He was brought to the hospital because of nausea and vomiting as well as coughing and sputum production. The does not think that he aspirated. He has also been having significant diarrhea. These symptoms developed following treatment of the right lower extremity for cellulitis. In this context, he was brought to the emergency room for evaluation. He had atrial fibrillation with rapid ventricular response as well as chest x-ray evidence of pneumonia in the right lower lung zone. On this basis, he was admitted to the hospital and treated with empiric broad-spectrum antibiotics including cefepime, azithromycin, levofloxacin. Currently, he is receiving linezolid, cefepime. He is also receiving methylprednisolone 40 mg twice daily intravenously. In this context, his creatinine was 3.1 on presentation, 2.9 today. We are asked to see him to assist with his management. PAST MEDICAL HISTORY: As above. He also has a history of diabetes, hypertension, obesity, prostate cancer, hyperlipidemia, GERD, etc. HOME MEDICATIONS: Include 1. Losartan. 2. Flexeril. 3. Omeprazole. 4. Amlodipine. 5. Hydrocodone. 6. Clindamycin. 7. Simvastatin. 8. Hydralazine. 9. Insulin. 10. Warfarin. 11. Metoprolol. ALLERGIES: 1. Sulfa. 2. Lisinopril. SOCIAL HISTORY: He is and lives with his who is his primary caregiver. Mostly independent. No alcohol or tobacco. FAMILY HISTORY: Noncontributory. REVIEW OF SYSTEMS: Noncontributory. PHYSICAL EXAMINATION: Vital Signs: Blood pressure 156/79, heart rate 109, respirations 32, temperature 99.1 degrees. Generally: Elderly man lying in bed at 30 degrees. No acute distress. Skin: Warm and dry with some thinning and bruising. There is no erythema in the right lower leg. HEENT: Conjunctivae are pink. Pupils are equal. Oropharynx is clear. Tongue is moist. Neck: Neck veins are not distended. Heart: PMI is not palpable. Auscultation with atrial fibrillation and tachycardia. Lungs: Have equal breath sounds. Diffuse wheezing. Abdomen: Obese, soft, nontender. Bowel sounds present. No organomegaly or masses. Extremities: Have trace edema. No clubbing or cyanosis. IMPRESSION: Chronic kidney disease stage 4. His labs currently approximate his baseline. I have reviewed his medications and no dose adjustments are required for his level of kidney function. Given that he is at or near his baseline, further diagnostic testing is not required at this time. He has baseline chronic kidney disease stage 4 secondary to diabetes and attended by heavy proteinuria. cc: Kvng Steiner MD
[2019-04-12 12:23] LABS: BLOOD TYPE ARTERIAL; SAMPLE BLOOD
[2019-04-12 12:24] LABS: ALLEN TEST YES; BE -3.7 mmoll (-3.0-3.0); HCO3-(ACT) 21.9 mmoll (20.0-26.0); METHB 0.6 % (0.0-1.5); O2(CT) 11.9 mL/dL (15.0-23.0); PCO2(98.6) 29 mmHg (35-45); PO2(98.6) 54 mmHg (60-100); SAO2 91.7 % (95.0-100.0); THB 9.4 g/dL (11.5-17.4); pH(98.6) 7.44 (7.35-7.45)
[2019-04-12 12:26] LABS: MODALITY VENTIMASK; O2HB 89.7 % (95.0-99.0)
[2019-04-12] MEDS ORDERED: LEVAQUIN 250 MG/D5W 250 MG/50 ML IVPB IV SCH (12:45)
[2019-04-12 14:14] LABS: URINE SOURCE CATH
[2019-04-12 14:19] LABS: BILIRUBIN URINE NEGATIVE (NEGATIVE); BLOOD URINE MODERATE (NEGATIVE); COLOR YELLOW; GLUCOSE URINE TRACE mg/dL (NEGATIVE); KETONE URINE TRACE mg/dL (NEGATIVE); LEUKOCYTES URINE NEGATIVE (NEGATIVE); NITRITE URINE NEGATIVE (NEGATIVE); PH URINE 5.5; PROTEIN URINE 200 mg/dL (NEGATIVE); SP GRAVITY URINE 1.011; TURBIDITY URINE CLEAR (CLEAR); UROBILINOGEN URINE NORMAL (NORMAL)
[2019-04-12] MEDS ORDERED: SODIUM BICARBONATE 8.4% IV PUSH ONE (14:19)
[2019-04-12 14:23] LABS: UR EPITHELIAL CELLS <10 /HPF (<10); URINE BACTERIA NEGATIVE /HPF; URINE RBC <10 /HPF (<10); URINE WBC <10 /HPF (<10)
--- NOTE | 2019-04-12 14:35 | INFECTIOUS DISEASE CONSULT REP ---
DATE: 04/12/2019 CONCLUSIONS: 1. The patient is admitted the hospital with an overwhelming community-acquired pneumonia. 2. The patient also has an immunoglobulin deficiency. RECOMMENDATIONS: I agree with switching the patient to a combination of Zyvox and cefepime. I also agree with giving the patient an infusion of IVIG. DISCUSSION: The patient is wearing a BiPAP mask. Most of the history I got was from his . In the past week, the patient had increasing dyspnea. He also was anorectic, and he had vomiting. He had chills, but he has been having chills ever since he had his back surgery. The patient did not have dysuria. DIAGNOSTIC STUDIES: Patient's studies thus far show a CBC with a white count of 9440, hemoglobin 8.2, and platelet count 196,000. Gases showed a pH of 7.44, a PO2 of 54, and a pCO2 of 29. The creatinine is 2.9, GFR is 22. Urinalysis did not have any white cells or bacteria. The patient's AST was 93. IgG was 452, IgA was 88. Blood cultures are pending. Chest x-ray shows bilateral pneumonia. Both sputum specimens are rejected because the patient had many epithelial cells and hardly any white cells on Gram stain. REVIEW OF SYSTEMS: See Present Illness.Neurologic: The patient does not have seizures. He had not recently lost motor or sensory function. Eyes and Ears: The patient does not have any trouble hearing or seeing. Genitourinary: The patient had prostate cancer and surgery for it, but he is not having any dysuria or problems urinating currently. PREVIOUS HOSPITALIZATIONS AND OPERATIONS: He has had laminectomy, appendectomy, total knee arthroplasty, surgery on his right knee, and prostatectomy for prostate cancer. MEDICAL DISEASES: Positive for diabetes mellitus, hypertension, hyperlipidemia, obesity, prostate cancer, atrial fibrillation, and gastroesophageal reflux disease. INFECTIOUS DISEASE HISTORY: Positive for pneumonia. FAMILY HISTORY: Positive for diabetes mellitus, hypertension, and hyperlipidemia. SOCIAL HISTORY: The patient is . He lives in [place]. He is retired. He does not smoke cigarettes, drink alcoholic beverages, or abuse drugs. He has a dog as a pet. ALLERGIES: He has an allergy to sulfa and lisinopril. HOME MEDICATIONS: Include the following: The patient is on amlodipine, Keflex clindamycin, Flexeril, hydralazine, hydrocodone, insulin, losartan, metoprolol, omeprazole, Ditropan, Luz- Colace, Zocor and Coumadin. PHYSICAL EXAMINATION: Vital Signs: Temperature is 98 degrees, pulse 88, respirations 22, blood pressure is 170/80. Height/Weight: Patient is 5 feet 8 inches tall, weighs 214 pounds. General: This is an obese, elderly male. He is wearing a BiPAP mask, but he really does not seem to be having any acute distress. Head, Eyes, Ears, Nose, and Throat: As mentioned above, he is wearing a BiPAP mask. He can hear my spoken words and see near objects. No drainage is coming from his nose or ears. Neck: No meningismus. Lungs: Clear to auscultation. Cardiovascular: Heart rate is irregular. Abdomen: Soft and nontender. Neurologic: Patient is alert can move his extremities. There is no tremor. He is able to talk, even wearing a BiPAP mask. There is no tremor. Integument: No rash noted. Thank you for the consult. cc: Richardson Cardenas MD
--- NOTE | 2019-04-12 14:36 | ECHO REPORT ---
ORDER DATE: 04/12/2019 MEASUREMENTS: 1. Septal thickness 1.2. 2. Left ventricular internal diameter in diastole 4.7. 3. Posterior wall thickness 0.8. 4. Aortic root 4.1. 5. Left atrium 3.8. SUMMARY: 1. Technically difficult study due to limited acoustic window quality. Intravenous echo contrast agent, Optison, was utilized to enhance endocardial definition. 2. Aortic valve is trileaflet and opens normally on 2-dimensional images. Peak gradient across aortic valve is less than 10 mmHg. Mitral and tricuspid valves are without evidence of structural abnormality while pulmonic valve is not well demonstrated. There is mild tricuspid regurgitation. The estimated systolic PA pressure by Doppler is 40 mmHg suggesting mild pulmonary hypertension. The aortic root is normal in size on 2-dimensional images. 3. Normal left ventricular dimensions demonstrated. Estimated left ventricular ejection fraction appears to be at least 65%. No regional wall motion abnormalities are evident. Left atrium is upper normal in size. The right atrium and right ventricle are normal size with grossly preserved right ventricular systolic function. 4. No pericardial effusion. 5. Appearance of inferior vena cava suggests normal central venous pressure. 6. Atrial fibrillation with ventricular rate of around 110 beats per minute during study. CONCLUSIONS: 1. Technically difficult study. 2. Mild tricuspid regurgitation with mild pulmonary hypertension by Doppler. 3. Normal left ventricular systolic function without wall motion abnormality evident. 4. Upper normal left atrial size. 5. Atrial fibrillation with heart rate of 110 beats per minute during study. cc: Lacho Fox MD
[2019-04-12 14:51] LABS: URINE CASTS GRANULAR PRESENT; URINE CRYSTALS NONE SEEN; URINE YEAST NONE SEEN
--- NOTE | 2019-04-12 15:21 | Diag Imaging Result Doc PS360 ---
EXAM: KUB ABDOMEN 04/12/2019 HISTORY: diarrhea, vomiting TECHNIQUE: KUB COMMENT: There is a Cooney catheter. There is some gas in the small bowel and colon without evidence of obstruction. The stomach is not distended. There is no evidence of organomegaly or mass. IMPRESSION: Nonspecific abdomen. Electronically signed by Camilo Madden 04/12/2019 3:19 PM
[2019-04-12] MEDS ORDERED: COUMADIN PO ONE (15:25)
[2019-04-12] MEDS ORDERED: LOPRESSOR IV PRN (15:26)
--- NOTE | 2019-04-12 15:48 | PROGRESS NOTE ---
DATE: 04/12/2019 SUBJECTIVE: The patient required BiPAP and was moved to intensive care unit due to respiratory difficulties. He is currently on BiPAP and relates feeling more comfortable. He denies shortness of breath or chest pain. OBJECTIVE: Blood pressure 148/88. Heart rate 88 and irregular with ECG monitor showing atrial fibrillation. Oxygen saturation 95% on BiPAP. NECK: There is no significant jugular venous distention. Chest: Auscultation of the chest reveals a few crackles in the right base posteriorly. Cardiac Exam: Reveals an irregular rate and rhythm without appreciable murmur or gallop. Extremities: Without edema. LABORATORY DATA: Includes a white blood cell count 9.44, hematocrit 25.5, hemoglobin 8.2, platelet count 196,000. Sodium 128, potassium 4, chloride 95, carbon dioxide 19, BUN 42, creatinine 2.9. Glucose 200. Troponin 0.082. Echocardiography: Technically difficult but indicates normal left ventricular systolic function without wall motion abnormality. Mild tricuspid regurgitation demonstrated with mild pulmonary hypertension by Doppler. Pro-time 19.2, INR 1.58. IMPRESSION: 1. Atrial fibrillation, persistent. Rate controlled. 2. Right lower lobe pneumonia. 3. Hypertension. 4. Hyperlipidemia. 5. Chronic kidney disease stage 4. 6. Diabetes mellitus. 7. Prostate cancer and previous prostate surgery. RECOMMENDATIONS: 1. Continue metoprolol 50 mg p.o. b.i.d. 2. Continue warfarin daily. We will give a small amount of additional warfarin today to try and maintain INR 2.0 to 3.0. cc: Lacho Fox MD
--- NOTE | 2019-04-12 18:02 | PULMONOLOGY CONSULTATION ---
DATE: 04/12/2019 REQUESTING PHYSICIAN: Dr. Rivas. REASON FOR CONSULTATION: Pneumonia and COPD. HISTORY OF PRESENT ILLNESS: Mr. Cotton is a 73-year-old white male with a prior tobacco history (nonsmoker since the mid ), who presented to the hospital with 1-week history of nausea, vomiting and diarrhea. He denies significant fevers. He denies abdominal pain. He did subsequently develop a cough with fever and chills. His nausea, vomiting and diarrhea have now resolved. Chest x-ray in the emergency room revealed a right lower lobe pneumonia. Followup chest x-ray revealed some infiltrate in the left base. The patient's oxygen requirements are elevated. He has been transferred to the intensive care unit. He currently is on a BiPAP device and appears comfortable. PAST MEDICAL HISTORY: 1. Atrial fibrillation, on chronic anticoagulation. 2. Diabetes mellitus. 3. Chronic kidney disease. 4. Dyslipidemia. 5. History of prostate cancer. 6. Hypertension. 7. Obesity. 8. Gastroesophageal reflux disease. SOCIAL HISTORY: The patient reports he smoked, but has not smoked since the . No alcohol use. FAMILY HISTORY: Notable for dyslipidemia, hypertension and diabetes. REVIEW OF SYSTEMS: As noted in the HPI but is otherwise negative. PHYSICAL EXAMINATION: Physical exam reveals an obese white male on BiPAP device. Blood pressure 148/88, heart rate 99, respiratory rate 32, oxygen saturation 92%.HEENT: Pupils are equal and reactive. Oropharynx is clear. Neck is supple. Chest reveals diminished breath sounds, right base, with scattered rhonchi bilaterally. Cardiac exam: Irregular, irregular rhythm. Normal S1, normal S2. Abdomen is obese and soft. Extremities are without significant edema. DIAGNOSTIC DATA: Chest x-ray today reveals dense right basilar pneumonia with patchy infiltrate at the left base. LABORATORY DATA: Microbiology: Blood cultures are negative. Sputum cultures were rejected twice. Arterial blood gas reveals pH 7.44, pCO2 of 29, pO2 of 54. White blood count 9.44, hemoglobin 8.2, platelet count 196,000. Total IgG level is significantly reduced at 452. Sodium 128, potassium 4.0, chloride 95, bicarbonate 19, BUN 42, creatinine 2.9. IMPRESSION: A 73-year-old with: 1. Acute hypoxemic respiratory failure. 2. Multilobar pneumonia. 3. Immunoglobulin deficiency. 4. [id number] renal insufficiency. 5. Diabetes mellitus. PLAN: 1. Agree with immunoglobulin replacement as outlined by Dr. Rivas and Dr. Cardenas. 2. Continue antibiotics per Dr. Cardenas. 3. Continue BiPAP. 4. Continue ICU monitoring. The patient is at risk for respiratory decompensation. 5. Continue renal management per Dr. Steiner. cc: Chicho Vera MD
[2019-04-12] MEDS: COUMADIN PO SCH (20:05)
[2019-04-13] MEDS: DUONEB (A & A) INH PRN ×4 (03:42→21:26)
[2019-04-13] MEDS: ZYVOX 600 MG/D5W 600 MG/300 ML IVPB IV SCH ×2 (04:12→15:40)
[2019-04-13 04:36] LABS: BLOOD TYPE ARTERIAL; SAMPLE BLOOD
[2019-04-13 04:37] LABS: ALLEN TEST YES; BE -5.3 mmoll (-3.0-3.0); HCO3-(ACT) 20.7 mmoll (20.0-26.0); METHB 0.4 % (0.0-1.5); MODALITY BI PAP; O2(CT) 13.1 mL/dL (15.0-23.0); PCO2(98.6) 30 mmHg (35-45); PO2(98.6) 65 mmHg (60-100); SAO2 95.5 % (95.0-100.0); THB 9.9 g/dL (11.5-17.4)
[2019-04-13] MEDS: MAXIPIME 1 GM in NS 50 ML IV SCH ×2 (06:02→18:04)
[2019-04-13] MEDS: HUMALOG SUBQ SCH ×4 (06:03→20:09)
[2019-04-13 06:46] LABS: HEMATOCRIT 26.2 % (42.0-52.0); HEMOGLOBIN 8.7 g/dL (14.0-18.0); MCH 29.6 PG (27-31); MCHC 33.2 g/dL (33-37); MCV 89.1 FL (81-99); MPV 12.6 FL (7.4-10.4); RBC 2.94 XMIL (4.7-6.1); RDW 12.7 % (11.5-14.5); WBC 6.78 X1000 (4.8-10.8)
[2019-04-13 07:02] LABS: MAGNESIUM 2.2 mg/dL (1.5-2.7); PHOSPHORUS 4.7 mg/dL (2.7-4.5)
[2019-04-13 07:03] LABS: INR 2.26; PROTIME 25.6 Seconds (11.0-16.0)
[2019-04-13 07:27] LABS: ALB/GLOB RATIO 0.8; ALBUMIN 2.9 g/dL (3.5-5.0); CALCIUM 8.8 mg/dL (8.8-10.2); CREATININE 2.7 mg/dL (0.7-1.2); POTASSIUM 4.2 mmol/L (3.5-5.1); TOTAL BILIRUBIN 0.38 mg/dL (0.20-1.00); TOTAL PROTEIN 6.6 g/dL (6.3-8.3)
[2019-04-13] MEDS ORDERED: LASIX IV ONE (07:58)
--- NOTE | 2019-04-13 07:58 | Diag Imaging Result Doc PS360 ---
CHEST-PORTABLE - 04/13/2019 INDICATION: respiratory failure COMPARISON: 04/12/2019 FINDINGS: Stable cardiomegaly and pulmonary vascular congestion. Lung volumes are severely low, much lower than before. Accounting for this there is probably little change in the dense infiltrate in the right midlung and lung base. No definitely new infiltrates. IMPRESSION: Lower lung volumes. Otherwise no change from prior. Electronically signed by Jatin Peralta 04/13/2019 7:56 AM
[2019-04-13] MEDS ORDERED: HUMALOG SUBQ SCH (07:59)
[2019-04-13] MEDS: SOLU-MEDROL IV SCH ×2 (08:06→20:10)
[2019-04-13] MEDS: LOPRESSOR PO SCH ×2 (08:07→20:10)
[2019-04-13] MEDS: LANOXIN PO SCH (08:07)
[2019-04-13] MEDS: CARDIZEM 125 MG in NS 100 ML IV PRN (09:08)
--- NOTE | 2019-04-13 09:09 | PROGRESS NOTE ---
DATE: 04/13/2019 SUBJECTIVE: This morning, Mr. Cotton refers to be doing a whole lot better, that he feels stronger, less short of breath. OBJECTIVE: Vital signs: Blood pressure is 136/93, pulse of 77, respiration is 28, temperature 97.5 degrees, patient was saturating 98% on a non-rebreather. General: Mr. cotton is a 73-year- old gentleman. He is in bed. He is still on a non-rebreather but less tachypneic than yesterday. HEENT: Mucosa is pink and moist. Anicteric. Acyanotic. Neck: Supple. Chest: Air entry is still bilaterally reduced but much better. There is mild diffuse expiratory wheezing, especially on the right, and minimal bibasilar crackles. Cardiovascular: Irregular but rate controlled. Gastrointestinal: Abdomen is soft, nontender. Bowel sounds present. Extremities: No pedal edema. Central nervous system: Patient is awake, alert, and oriented. LABORATORY DATA: WBC is down to 6.78, hemoglobin is 8.7, platelet count of 215,000. ABGs have all been reviewed. The patient was on the BiPAP and PO2 was 65. Chemistry is also reviewed. Creatinine is down to 2.7. Glucose is slightly elevated. I guess part of it is because of the steroids. The patient's intake and output, urine output was 835. She is currently positive balance of 1214 during the hospital course. A repeat chest x-ray this morning continues to show dense infiltrate in the right lower lobe. There is also pulmonary congestion and possible mild pleural effusion bilateral. official report still pending. CURRENT MEDICATIONS: Have all been reviewed and no changes. ASSESSMENT: 1. Acute hypoxemic respiratory failure secondary to multifocal pneumonia. The patient cycles between BiPAP and Venturi mask, non-rebreather for now. He seems to be saturating well. 2. Sepsis secondary to pneumonia. Patient is on antimicrobial therapy. Infectious Disease is on board. 3. Severe multifocal community-acquired pneumonia with immunoglobulin deficiency. The patient is on antimicrobial and immunoglobulin supplement was done yesterday. 4. Suspected chronic obstructive pulmonary disease with bronchospasm, improved. 5. Paroxysmal atrial fibrillation with rapid ventricular response. Patient is currently rate controlled on the Cardizem drip. 6. Congestive heart failure with preserved ejection fraction. We will continue recommendations from Cardiology. 7. Acute on chronic renal failure. Creatinine continues to be trending down. Patient is making adequate urine. 8. Mild elevated troponin, presumably due to demand mismatch. 9. Microcytic anemia: Stable. 10. Coumadin anticoagulation. Patient's INR is 2.26, which is therapeutic. PLAN: In general, I think Mr. Cotton is doing a lot better today. We are going to continue cycling between BiPAP, nonrebreather/Venturi mask for oxygen demands. We will continue with the current antimicrobial therapy. I will give him another dose of Lasix to improve on the pulmonary edema. We will continue to observe Mr. Cotton in the ICU. We will start him on diabetic diet today and I have also started him back on some insulin for diabetes control. cc: Emiliano Rivas MD MTDD
[2019-04-13] MEDS: LANTUS INSULIN SUBQ SCH (09:13)
--- NOTE | 2019-04-13 13:20 | NEPHROLOGY PROGRESS NOTE ---
DATE: 04/13/2019 SUBJECTIVE: He was moved to the ICU because of atrial fibrillation with rapid ventricular response. Increased respiratory rate. He remains uncomfortable with some shortness of breath on supplemental oxygen today. Closed face mask. OBJECTIVE: Vital Signs: Blood pressure 136/93, heart rate 77, respirations 28. Afebrile. Intake 1.2 L. Output 800 mL. General: No acute distress. Skin: Warm and dry. Conjunctivae are pink. Neck: Neck veins are not appreciated. Heart: In atrial fibrillation with rate control. Lungs: Have equal breath sounds. Few rhonchi. Abdomen: Soft, nontender. Bowel sounds present. Extremities: 1+ edema. No clubbing or cyanosis. IMPRESSION: 1. Chronic kidney disease stage 4. At baseline. He does have moderate hyponatremia and moderate metabolic acidosis but these do not warrant treatment at this time. 2. Significant anemia but stable. Does not meet criteria for transfusion. Blood pressure is within target. cc: Kvng Steiner MD
[2019-04-13] MEDS ORDERED: CARDIZEM PO ONE (13:51)
--- NOTE | 2019-04-13 15:15 | PULMONOLOGY PROGRESS NOTE ---
DATE: 04/13/2019 SUBJECTIVE: The patient is sitting in a chair. His appetite is improving. He denies nausea, vomiting, or diarrhea. His shortness of breath is decreasing. OBJECTIVE: Vital Signs: The patient has been afebrile for the last 24 hours. Blood pressure 129/93, heart rate 69, respiratory rate 21, oxygen saturation 98% on non-rebreather. HEENT: Pupils are equal and reactive. Oropharynx appears clear. Neck: Supple. Chest: Crackles bilaterally with decreased breath sounds at right base. Cardiac: S1 and S2 with a regular rhythm. Abdomen: Obese and soft. Extremities: Trace edema. LABORATORIES: Chest x-ray reveals cardiomegaly, vascular congestion, with stable infiltrates in right mid lung and base. Microbiology reveals no new data. White blood count 6.78, hemoglobin 8.7, platelet count is 215,000. Arterial blood gas on BiPAP reveals pH of 7.40, pCO2 of 30, PO2 of 65. IMPRESSION: This is a 73-year-old with: 1. Acute hypoxemic respiratory failure. 2. Multilobar pneumonia. 3. Immunoglobulin deficiency. 4. Acute on chronic renal insufficiency. 5. Diabetes mellitus. DISCUSSION: This is a 73 year old with problems outlined above. The patient asymptomatically is improved but has not changed significantly radiographically. PLAN: 1. Continue current antibiotic regimen. 2. Cycle BiPAP at bedtime and p.r.n. 3. Follow up immunoglobulin levels following replacement. 4. Consider transfer to the floor if he remains stable. cc: Chicho Vera MD
[2019-04-13] MEDS: CARDIZEM PO SCH (17:16)
[2019-04-13] MEDS: COUMADIN PO SCH (20:10)
[2019-04-14] MEDS: HUMALOG SUBQ SCH ×9 (00:50→23:52)
[2019-04-14] MEDS: ZYVOX 600 MG/D5W 600 MG/300 ML IVPB IV SCH ×2 (03:46→15:49)
[2019-04-14] MEDS: DUONEB (A & A) INH PRN ×4 (03:55→21:43)
[2019-04-14 04:43] LABS: ALLEN TEST YES; BE -2.6 mmoll (-3.0-3.0); BLOOD TYPE ARTERIAL; HCO3-(ACT) 22.9 mmoll (20.0-26.0); METHB 0.8 % (0.0-1.5); O2(CT) 11.3 mL/dL (15.0-23.0); O2HB 93.7 % (95.0-99.0); PCO2(98.6) 31 mmHg (35-45); PO2(98.6) 65 mmHg (60-100); SAMPLE BLOOD; SAO2 95.4 % (95.0-100.0); THB 8.5 g/dL (11.5-17.4); pH(98.6) 7.44 (7.35-7.45)
[2019-04-14 04:44] LABS: MODALITY BI PAP
[2019-04-14] MEDS: MAXIPIME 1 GM in NS 50 ML IV SCH ×2 (06:04→17:50)
[2019-04-14 06:58] LABS: POTASSIUM 4.1 mmol/L (3.5-5.1)
[2019-04-14 06:59] LABS: ALB/GLOB RATIO 0.8; CALCIUM 8.6 mg/dL (8.8-10.2); CREATININE 2.9 mg/dL (0.7-1.2); TOTAL BILIRUBIN 0.29 mg/dL (0.20-1.00)
[2019-04-14 07:39] LABS: HEMATOCRIT 29.2 % (42.0-52.0); HEMOGLOBIN 9.7 g/dL (14.0-18.0); MCH 28.6 PG (27-31); MCHC 33.2 g/dL (33-37); MCV 86.1 FL (81-99); MPV 12.1 FL (7.4-10.4); RBC 3.39 XMIL (4.7-6.1); RDW 12.5 % (11.5-14.5); WBC 13.02 X1000 (4.8-10.8)
--- NOTE | 2019-04-14 07:46 | Diag Imaging Result Doc PS360 ---
EXAM: CHEST-PORTABLE - 04/14/2019 HISTORY: respiratory failure TECHNIQUE: Portable chest COMPARISON: 04/13/2019 FINDINGS: Mid and lower lung consolidation right decreased mildly. There is been interval decrease in atelectasis or consolidation at the left base. There are no other interval changes identified. IMPRESSION: Mild decrease in right mid and lower lung consolidation. Decrease in left basilar opacity. Electronically signed by Mark Cruz 04/14/2019 7:44 AM
[2019-04-14] MEDS: LANTUS INSULIN SUBQ SCH ×2 (09:05→21:09)
[2019-04-14] MEDS: LOPRESSOR PO SCH ×2 (09:06→21:08)
[2019-04-14] MEDS: CARDIZEM PO SCH ×3 (09:06→17:01)
[2019-04-14] MEDS: SOLU-MEDROL IV SCH (09:06)
[2019-04-14 09:31] LABS: ACETONE SERUM NEGATIVE (NEGATIVE)
[2019-04-14 09:45] LABS: ACETAMINOPHEN < 1.2 ug/mL (10-30); SALICYLATES < 3.00 mg/dL (3-10)
--- NOTE | 2019-04-14 09:46 | PROGRESS NOTE ---
DATE: 04/14/2019 SUBJECTIVE: This morning, Mr. Cotton refers to be doing a whole lot better. He was actually sitting up in a chair at the time of the encounter. was at the bedside with him. Per the nursing staff, the night was uneventful. OBJECTIVE: Vital signs: Blood pressure is 109/82, pulse of 87, respirations 24, temperature 97.4 degrees. The patient was saturating about 92% on Ventimask. General: Mr. Cotton is a 73-year- old elderly gentleman. He was sitting up in a chair. No distress. HEENT: Mucosa is pink and moist. Anicteric. Acyanotic. Neck: Supple. Chest: Air entry is bilaterally reduced. There was no wheezing but there are still some bibasilar crackles. Cardiovascular: Irregularly irregular but rate controlled. No murmurs. Abdomen: Soft, distended but nontender. Bowel sounds present. Extremities: No pedal edema. HAZARD MITIGATION OFFICER: Patient is awake, alert, and oriented. LABORATORY DATA: WBC is 13.02, hemoglobin is 9.3, platelet count of 306,000. ABGs reviewed, pCO2 is 21, PaO2 is 65, pH is normal. Chemistry is also reviewed. Creatinine is 2.9, BUN is 68. Bicarb is up to 13 and a gap of 21. Glucose was 200 and 304. AST and ALT are elevated. Strep pneumo antigen and Legionella urine antigen are all negative. IMAGING STUDIES: A chest x-ray showed mild decrease in the right mid and lower lung consolidation. There is a decrease in the left basilar opacity too. ASSESSMENT: 1. Acute hypoxemic respiratory failure secondary to pneumonia and pulmonary edema, improving. 2. Sepsis secondary to multifocal pneumonia. The patient is on antimicrobial therapy. So far the blood cultures have been negative. Sputum cultures are still pending final report. 3. Severe multifocal community-acquired pneumonia with immune deficiency with immunoglobulin deficiency. We will continue with the current antimicrobial therapy. Patient was given IgG infusion 3 days ago. 4. Suspected chronic obstructive pulmonary disease with exacerbation, improved. 5. Paroxysmal atrial fibrillation with rapid ventricular response. The patient has been started on oral regimen. Cardiology is on board. 6. Congestive heart failure with preserved ejection fraction, stable. 7. Acute on chronic renal failure. 8. Mild elevated troponin secondary to demand mismatch. However, underlying coronary artery disease cannot be completely excluded. Cardiology is on board. 9. Normocytic anemia. 10. Coumadin anticoagulation therapy. 11. Transaminitis, suspected to be from transient ischemic liver injury. We will continue to observe this. 12. High anion gap metabolic acidosis concerning for possible mild diabetic ketoacidosis. We are going to get acetone, salicylate and lactate level, and address it accordingly. cc: Emiliano Rivas MD
[2019-04-14] MEDS: PREDNISONE PO SCH (09:51)
--- NOTE | 2019-04-14 14:54 | INFECTIOUS DISEASE PROGRESS NO ---
DATE: 04/14/2019 PRESENT ILLNESS: The patient has an overwhelming community-acquired pneumonia. He also has an immunoglobulin deficiency. MEDICATIONS: The patient is receiving for the 4th day in a row Zyvox and cefepime. The patient also has had an infusion of IVIG. PHYSICAL EXAMINATION: Vital Signs: Temperature is 97.8 degrees, pulse 90, respirations 28, blood pressure 148/98. General: The patient is looking better each day. He is more alert and he is not having any dyspnea and he feels better. Head/eyes/ears/nose/throat: No drainage was noted from the nose or ears. Neck: No pain with movement of the neck. Lungs: Clear to auscultation. Cardiovascular: Heart rate is irregular. Abdomen: Soft and nontender. Neurologic: Patient is alert, he can move his extremities. He talks in a coherent fashion. There is no tremor. LAB AND X-RAY: Chest x-ray shows decrease in the bibasilar consolidation. Legionella and pneumococcal antigens are negative. IgG is 452, but now it is higher because patient has received an infusion of IVIG ordered by Dr. Rivas. The patient's CBC shows a white count of 13,020, hemoglobin 9.7, and platelet count 306,000. Blood gases show a pH of 7.44, a PO2 of 65, and a pCO2 of 31. Creatinine is 2.9. GFR is 22. AST is 101. ASSESSMENT AND PLAN: The patient has an overwhelming pneumonia. The plan is to continue with Zyvox and cefepime. The patient had an immunoglobulin deficiency. He has received an infusion of intravenous immunoglobulin. As regarding the patient's leukocytosis, he is on high doses of steroids which certainly could be contributing to his leukocytosis. Also, his pneumonia could well be causing leukocytosis. However, it is getting better as noted on the chest x-ray. Patient has bilateral pneumonia which is getting better. I suggest continuing with the current antibiotics namely Zyvox and cefepime. The patient had a low IgG level. I agree with Dr. Rivas's infusion of intravenous immunoglobulin. COMORBIDITIES: He is a diabetic. He has prostate cancer and gastroesophageal reflux disease and diabetes. cc: Richardson Cardenas MD
--- NOTE | 2019-04-14 21:07 | PULMONOLOGY PROGRESS NOTE ---
DATE: 04/14/2019 SUBJECTIVE: The patient is awake, alert, and conversant. He has a fair cough effort. He is without specific complaints. OBJECTIVE: Vital Signs: The patient has been afebrile for the last 24 hours. Blood pressure 141/98, heart rate 90, respiratory rate 25, oxygen saturation 92% on 50% venturi face mask. HEENT: Pupils are equal and reactive. Oropharynx appears clear. Neck: Supple. Chest: Reveals crackles at the right base. Cardiac: S1, S2. Abdomen: Soft. Extremities: Are without edema. LABORATORIES: No new microbiology data. Chest x-ray is marginally improved with decreased density with better delineation of the diaphragm compared to yesterday. Repeat IgG level is low normal. White blood count 13,000, hemoglobin 9.7, platelet count 306,000. Arterial blood gas reveals a pH 7.44, pCO2 of 31, PO2 of 65. Sodium 132, potassium 4.1, chloride 98, bicarbonate 13, BUN 68, creatinine 2.9. IMPRESSION: A 73-year-old with 1. Acute hypoxemic respiratory failure. 2. Multilobar pneumonia. 3. Immunoglobulin deficiency status post replacement. 4. Diabetes mellitus. 5. Acute on chronic renal insufficiency. PLAN: 1. Continue antibiotics under the direction of Dr. Richardson Cardenas. 2. Continue to cycle BiPAP at bedtime and p.r.n. 3. Continue bronchial hygiene. 4. Will supplement serum bicarbonate level with sodium bicarbonate x2 doses to help correct his metabolic acidosis. cc: Chicho Vera MD
[2019-04-14] MEDS: COUMADIN PO SCH (21:08)
[2019-04-14] MEDS ORDERED: INSULIN PEN NEEDLES ONE (21:10)
[2019-04-14] MEDS: SODIUM BICARBONATE 8.4% IV PUSH SCH (21:14)
[2019-04-15] MEDS: DUONEB (A & A) INH PRN (03:21)
[2019-04-15] MEDS: ZYVOX 600 MG/D5W 600 MG/300 ML IVPB IV SCH ×2 (03:44→16:49)
[2019-04-15] MEDS: SODIUM BICARBONATE 8.4% IV PUSH SCH (03:44)
[2019-04-15] MEDS: HUMALOG SUBQ SCH ×9 (03:45→23:51)
[2019-04-15 04:28] LABS: ALLEN TEST YES; BE -0.5 mmoll (-3.0-3.0); BLOOD TYPE ARTERIAL; HCO3-(ACT) 24.5 mmoll (20.0-26.0); METHB 0.3 % (0.0-1.5); O2(CT) 13.8 mL/dL (15.0-23.0); O2HB 95.9 % (95.0-99.0); PCO2(98.6) 31 mmHg (35-45); PO2(98.6) 71 mmHg (60-100); SAMPLE BLOOD; SAO2 97.5 % (95.0-100.0); THB 10.2 g/dL (11.5-17.4); pH(98.6) 7.47 (7.35-7.45)
[2019-04-15 04:30] LABS: MODALITY BI PAP
[2019-04-15 05:10] LABS: HEMATOCRIT 28.3 % (42.0-52.0); HEMOGLOBIN 9.4 g/dL (14.0-18.0); MCH 28.6 PG (27-31); MCHC 33.2 g/dL (33-37); MPV 12.3 FL (7.4-10.4); RBC 3.29 XMIL (4.7-6.1); RDW 12.7 % (11.5-14.5); WBC 16.88 X1000 (4.8-10.8)
[2019-04-15] MEDS: MAXIPIME 1 GM in NS 50 ML IV SCH ×2 (05:36→19:49)
[2019-04-15 05:39] LABS: POTASSIUM 4.1 mmol/L (3.5-5.1)
[2019-04-15 05:40] LABS: ALB/GLOB RATIO 0.8; ALBUMIN 2.8 g/dL (3.5-5.0); CALCIUM 8.5 mg/dL (8.8-10.2); TOTAL BILIRUBIN 0.27 mg/dL (0.20-1.00); TOTAL PROTEIN 6.3 g/dL (6.3-8.3)
--- NOTE | 2019-04-15 06:42 | Diag Imaging Result Doc PS360 ---
EXAM: CHEST-PORTABLE HISTORY: respiratory failure TECHNIQUE: Portable chest single view COMPARISON: 04/14/2019 FINDINGS: Poor inspiratory effort. Cardiomegaly remains. Infiltrates and atelectasis in the lower right lung are less pronounced. IMPRESSION: Interval improvement Electronically signed by Guero Gonzalez 04/15/2019 6:40 AM
[2019-04-15 07:11] LABS: UR CREAT RANDOM 38.6 mg/dL (14-26)
[2019-04-15] MEDS ORDERED: NS 1,000 ML IV SCH (08:30)
[2019-04-15] MEDS: LANTUS INSULIN SUBQ SCH ×2 (08:51→20:47)
[2019-04-15] MEDS: PREDNISONE PO SCH (08:53)
[2019-04-15] MEDS: LOPRESSOR PO SCH ×2 (08:53→20:47)
[2019-04-15] MEDS: CARDIZEM PO SCH ×3 (08:53→16:49)
--- NOTE | 2019-04-15 10:41 | PROGRESS NOTE ---
DATE: 04/15/2019 SUBJECTIVE: This morning, Mr. Cotton refers to be feeling a whole lot better. The was at the bedside at the time of the encounter. He refers that the breathing has significantly improved. He is not coughing anymore. OBJECTIVE: Vital Signs: Blood pressure is 164/68, pulse of 78, respirations are 25, temperature is 98.1 degrees. General Examination: Mr. Cotton is a 73-year-old, gentleman. He is in bed. No distress. HEENT: Mucosa is pink and moist. Anicteric. Acyanotic. Neck: Supple. Chest: Good air entry bilaterally. Still has a few crackles in the posterior lung ruvalcaba but no wheezing and no rhonchi. Cardiovascular: Irregularly irregular but rate controlled. GI: Abdomen is soft. Distended but nontender. Bowel sounds present. Extremities: No pedal edema. CASH POSTING REPRESENTATIVE: The patient is awake, alert, oriented, and follows basic commands. : There is still a Cooney catheter in place. Is and Os: Urine output is 1324. The patient is still about 3487 positive balance during the hospital course. He has tolerated 100% of his diet this morning. There have not been any bowel movements charted for the past 3 days. A chest x-ray this morning shows interval improvement. Laboratory Data: WBC is 16.88 which I think part of it is because of the steroids, hemoglobin is 9.4, platelet count of 314,000. ABG has also been reviewed and, for the most part, unremarkable. Lactate level was a little bit elevated at 2.50 on arterial blood gas. Sodium is 132, potassium is 4.1, chloride is 98, bicarb is 16, BUN is 79, creatinine is 3.0 which has slightly gotten worse. Eosinophils in the urine were none. Urine sodium, creatinine, and nitrogen have all been reviewed. The patient's fraction excretion of BUN is 99.3, which would be consistent with ATN. Current Medications: Have also been reviewed. Patient is on cefepime 1 g q.12. Today is day 4 on that. He is also on Zyvox 600 IV q.12. Today is also day 4. Microbiology Data: So far, blood cultures have been 48 hours negative. Sputum culture is still growing gram-negative cocci, gram-negative rods, gram-positive cocci, but we are still pending the ID and sensitivity. ASSESSMENT: 1. Acute hypoxemic respiratory failure secondary to pneumonia and pulmonary edema. This seems to have all been improved. The patient is currently only on nasal cannula and he is saturating well. 2. Sepsis secondary to multifocal pneumonia. The patient is on cefepime and Zyvox. Today is day 4 on antimicrobial therapy. Infectious disease is on board. 3. Severe multifocal community-acquired pneumonia with immunoglobulin G deficiency noted. 4. Suspected chronic obstructive pulmonary disease with bronchospasm. Initially, the patient was treated for chronic obstructive pulmonary disease exacerbation. He is currently not having any more wheezing. 5. Paroxysmal atrial fibrillation with rapid ventricular response. The patient is currently on oral diltiazem. Cardiology is on board. Heart rate is better controlled. 6. Congestive heart failure with preserved ejection fraction, associated with pulmonary edema, improved with diuretic therapy. 7. Acute on chronic renal failure. Creatinine continues to be slightly elevated, as well as BUN. The patient's fraction excretion of BUN is 99.3%, fraction excretion of sodium is about 1.17. Concerning fro ATN. He seems to be making adequate urine. Nephrology is on board. 8. Mildly elevated troponin secondary to demand mismatch. Cardiology is on board. 9. Coumadin anticoagulation therapy for stroke prophylaxis in a patient with atrial fibrillation. PLAN: In general, Mr. Cotton looks a lot better from a clinical standpoint. His breathing is improving. A chest x-ray this morning shows improvement. He is still on antimicrobial therapy. A repeat on his immunoglobulin levels reveals significant improvement and normalized IgG level. We are going to transfer him from the ICU to medical floor and continue with the current antimicrobial therapy. We will also get physical therapy to start working with Mr. Cotton. His disposition is going to depend on the rest of the hospital course. Mr. Cotton is also being seen by infectious disease, pulmonary medicine, cardiology, and nephrology, and we appreciate their valuable input in his care. cc: Emiliano Rivas MD [facility]
--- NOTE | 2019-04-15 14:24 | NEPHROLOGY PROGRESS NOTE ---
DATE: 04/15/2019 SUBJECTIVE: Patient is sitting up in bed. He has been able to transition from BiPAP to nasal cannula. OBJECTIVE: Vital Signs: Temperature 98 degrees, pulse 72, respiratory rate 24, blood pressure 167/76. Intake 2.6 L. Output 1.3 L. General: This is an elderly gentleman resting in bed. He is awake and alert. He does not appear in acute distress. HEENT: Normocephalic, atraumatic. JANNY. Neck: Supple without JVD. Cardiovascular: Irregularly irregular rhythm. Controlled rate. Pulmonary: Decreased breath sounds. He has faint rhonchi. No rales or wheeze. He is on O2 supplementation via nasal cannula. Abdomen: Soft, with positive bowel sounds. : He has a Cooney catheter. Extremities: He has trace edema. Integumentary: Skin is warm and dry, and pale. Lab Data: WBC of 16.8, hemoglobin 9.4. Sodium 132, potassium 4.1, CO2 of 16, creatinine 3.0. ASSESSMENT AND PLAN: 1. Chronic kidney disease stage IV. He remains at his historical baseline. His urine output is adequate. 2. Electrolytes, acid-base balance. His sodium has been stable at this level now for 4 or 5 days. No changes. Potassium is in target. Acidosis has had some modest improvement overnight. Continue current treatment plan. 3. Anemia. Hemoglobin with modest anemia. No transfusion warranted. 4. Hypoxemic respiratory failure, improving, is now transitioned to nasal cannula. Anticipate he will transfer out of the intensive care unit later today. 5. Stop IVF. Lasix x 1. Dictated by ALEXANDRA Nicole for Kvng Steiner MD Face to face encounter, data reviewed, discussed with Jose Munroe on 04/15/19. I agree with the above assessment and plan of care. rg cc: Kvng Steiner MD [facility]
--- NOTE | 2019-04-15 14:51 | INFECTIOUS DISEASE PROGRESS NO ---
DATE: 04/15/2019 PRESENT ILLNESS: The patient has an overwhelming community-acquired pneumonia and also he has an immunoglobulin deficiency. MEDICATIONS: This is day 5 of treatment with Zyvox and cefepime. The patient already has had an infusion of IVIG. PHYSICAL EXAMINATION: Vital Signs: Temperature is 98 degrees, pulse 78, respirations 25, blood pressure 164/68. General: This is an obese but otherwise fairly healthy-appearing, elderly male. He is in no acute distress. Head, eyes, ears, nose, and throat: He can hear my spoken words and see near objects. He does not have any white coating on his tongue. Neck: No pain with movement. Cardiovascular: Heart rate at times appears to be regular and other times it appears to be a little irregular. Abdomen: Soft and nontender. Neurologic: Patient is alert. He can move his extremities. There is no tremor. LAB AND X-RAY: The CBC shows a white count of 16,880, hemoglobin 9.4, and platelet count 314,000. Creatinine is 3. GFR is 21. Blood gases show a pH of 7.47, a PO2 of 71, PCO2 of 31. The patient's initial IgG level was 455. He got a dose of IVIG and the IgG level now is 718. The patient's Legionella and pneumococcal urinary antigens are negative. Chest x-ray shows improvement in the right lower lobe infiltrate. ASSESSMENT AND PLAN: The patient has pneumonia. His white count did go up some, but he is on steroids which may be contributing to that. In any event, I think he is getting better. I plan to continue with his current medication. As regarding the patient's low IgG level, it is up to normal now. My plan would be in 6 to 8 weeks repeat the patient's IgG level and if it is low again then the patient may be a candidate for monthly IVIG. COMORBIDITIES: Diabetes mellitus, prostate cancer, and gastroesophageal reflux disease. cc: Richardson Cardenas MD
--- NOTE | 2019-04-15 15:39 | PULMONOLOGY PROGRESS NOTE ---
DATE: 04/15/2019 SUBJECTIVE: The patient is awake, alert, and conversant. He has been transitioned to nasal cannula. He is without specific complaints. OBJECTIVE: Vital Signs: The patient has been afebrile for the last 24 hours, blood pressure 159/82, heart rate 72, respiratory rate 23, oxygen saturation 96% on 4 L per nasal cannula. HEENT: Pupils are equal and reactive. Oropharynx appears clear. Neck is supple. Chest reveals good air entry bilaterally without wheezing or rhonchi. Cardiac: S1, S2. Abdomen is soft and without hepatosplenomegaly. Extremities are without edema. DIAGNOSTIC STUDIES: Sodium 132, potassium 4.1, chloride 98, bicarbonate 16, BUN 79, creatinine 3.0. White blood count 16.8, hemoglobin 9.4, platelet count 314,000. Chest x-ray reveals generous cardiac silhouette with continued improvement in the right lung base. IMPRESSION: A 73-year-old with: 1. Multilobar pneumonia. 2. Acute hypoxemic respiratory failure. 3. Diabetes mellitus. 4. Immunoglobulin deficiency status post replacement. 5. Chronic renal insufficiency. PLAN: 1. Current antibiotic regimen. 2. Wean oxygen as tolerated. 3. Continue bronchial hygiene. 4. Recommend follow-up immunoglobulin level 4-6 weeks after discharge. If it remains low, he should likely be evaluated by Allergy/Immunology to evaluate potential replacement therapy. cc: Chicho Vera MD
--- NOTE | 2019-04-15 17:12 | PROGRESS NOTE ---
DATE: 04/15/2019 SUBJECTIVE: The patient denies shortness of breath or chest discomfort on supplemental oxygen per nasal cannula. OBJECTIVE: Blood pressure 159/83 to 173/85, heart rate 71, oxygen saturation 96% on nasal cannula oxygen at 4 L/minute. ECG monitor shows sinus rhythm. There is no significant jugular venous distention.Chest: Clear to auscultation bilaterally. Cardiac: Reveals a regular rate and rhythm without appreciable murmur or gallop. Extremities: Without edema. LABORATORY DATA: Includes a white blood cell count of 16.88, hematocrit 28.3, hemoglobin 9.4, platelet count 314,000. Sodium 132, potassium 4.1, chloride 98, carbon dioxide 16, BUN 79, creatinine 3.0. IMPRESSION: 1. Atrial fibrillation, persistent. Patient has spontaneously converted back to sinus rhythm. 2. Right lower lobe pneumonia improving with treatment. 3. Hypertension. 4. Hyperlipidemia. 5. Chronic kidney disease stage 4. 6. Diabetes mellitus. RECOMMENDATIONS: 1. Continue metoprolol 50 mg p.o. b.i.d. 2. Recheck INR and adjust warfarin as required. cc: Lacho Fox MD
[2019-04-15] MEDS: COUMADIN PO SCH (20:47)
--- NOTE | 2019-04-15 22:54 | EKG Report ---
Test Performed on : 04/15/2019 6:05:12 PM Test Reason : atrial fibrillation Blood Pressure : / mmHG Vent. Rate : 070 BPM Atrial Rate : 070 BPM P-R Int : 170 ms QRS Dur : 076 ms QT Int : 444 ms P-R-T Axes : 026 -02 -03 degrees QTc Int : 479 ms Normal sinus rhythm. Normal ECG When compared with ECG of 11-APR-2019 13:10, (Unconfirmed) Sinus rhythm. has replaced Atrial fibrillation. Vent. rate has decreased BY 52 BPM Confirmed by Lucy Turner MD ([id number]) on 04/16/2019 8:30:52 AM
[2019-04-16] MEDS: ZYVOX 600 MG/D5W 600 MG/300 ML IVPB IV SCH (04:05)
[2019-04-16] MEDS: HUMALOG SUBQ SCH ×5 (04:08→11:39)
[2019-04-16 04:19] LABS: ALLEN TEST YES; BE -1.4 mmoll (-3.0-3.0); BLOOD TYPE ARTERIAL; HCO3-(ACT) 23.8 mmoll (20.0-26.0); METHB 0.7 % (0.0-1.5); O2(CT) 12.1 mL/dL (15.0-23.0); O2HB 96.6 % (95.0-99.0); PCO2(98.6) 34 mmHg (35-45); PO2(98.6) 81 mmHg (60-100); SAMPLE BLOOD; THB 8.8 g/dL (11.5-17.4); pH(98.6) 7.43 (7.35-7.45)
[2019-04-16 04:20] LABS: MODALITY CANNULA
[2019-04-16 07:11] LABS: HEMATOCRIT 25.7 % (42.0-52.0); HEMOGLOBIN 8.5 g/dL (14.0-18.0); MCH 29.5 PG (27-31); MCHC 33.1 g/dL (33-37); MCV 89.2 FL (81-99); MPV 11.1 FL (7.4-10.4); RBC 2.88 XMIL (4.7-6.1); RDW 12.9 % (11.5-14.5); WBC 9.78 X1000 (4.8-10.8)
[2019-04-16 07:13] LABS: INR 4.33; PROTIME 42.9 Seconds (11.0-16.0)
--- NOTE | 2019-04-16 07:14 | Diag Imaging Result Doc PS360 ---
EXAM: CHEST-PORTABLE 04/16/2019 HISTORY: respiratory failure TECHNIQUE: AP portable at 0556 COMMENT: There is dense alveolar opacity in the right lower lobe and ill-defined opacity in the left lateral base. There has been some improvement in the left lower lobe since the previous study of 04/15/2019. The opacity in the right lower lobe is slightly worse. IMPRESSION: Improved atelectasis versus pneumonia left lower lobe. Worsened pneumonia right lower lobe. Electronically signed by Camilo Madden 04/16/2019 7:11 AM
[2019-04-16 07:21] LABS: ALB/GLOB RATIO 1.1; CALCIUM 8.2 mg/dL (8.8-10.2); CREATININE 2.5 mg/dL (0.7-1.2); POTASSIUM 4.2 mmol/L (3.5-5.1); TOTAL BILIRUBIN 0.29 mg/dL (0.20-1.00); TOTAL PROTEIN 5.7 g/dL (6.3-8.3)
[2019-04-16] MEDS: MAXIPIME 1 GM in NS 50 ML IV SCH (07:30)
[2019-04-16] MEDS: LANTUS INSULIN SUBQ SCH (09:24)
[2019-04-16] MEDS: LOPRESSOR PO SCH (09:26)
[2019-04-16] MEDS: PREDNISONE PO SCH (09:26)
[2019-04-16] MEDS: CARDIZEM PO SCH ×2 (09:26→12:17)
--- NOTE | 2019-04-16 09:50 | NEPHROLOGY PROGRESS NOTE ---
DATE: 04/16/2019 SUBJECTIVE: The patient is resting in bed. No events overnight. He was transferred yesterday to the stepdown unit. OBJECTIVE: Vital Signs: Temperature 98 degrees, pulse 66, respiratory rate 19, blood pressure 136/76. Intake 1.4 L. Output 1.3 L via Cooney catheter plus multiple diarrhea episodes. Physical Examination: General: This is an elderly gentleman resting in bed. He is awake and alert. He does not appear in distress. HEENT: Normocephalic, atraumatic. JANNY. Oral mucosa moist. Neck: Supple. Trachea midline. No JVD. Cardiovascular: Regular rhythm. Controlled rate. Pulmonary: He has some decreased breath sounds posteriorly. No wheezes or rales noted. Abdomen: Obese, soft, with positive bowel sounds. : Cooney catheter. Extremities: No edema, clubbing, or cyanosis. Integumentary: Skin is warm and dry. Lab Data: Pending. ASSESSMENT AND PLAN: Acute on chronic kidney disease. The patient's renal function has been stable, close to his baseline now for some days. His urine output remains excellent. We will continue to follow along. No change to his current treatment plan. Dictated by ALEXANDRA Nicole for Kvng Steiner MD Face to face encounter, data reviewed, discussed with Jose Munroe on 04/16/19. I agree with the above assessment and plan of care. cc: Kvng Steiner MD [facility]
--- NOTE | 2019-04-16 10:22 | INFECTIOUS DISEASE PROGRESS NO ---
DATE: 04/16/2019 PRESENT ILLNESS: The patient has an overwhelming community-acquired pneumonia and he also has an immunoglobulin deficiency. MEDICATIONS: This is day 5 of treatment with the combination of Zyvox and cefepime. The patient already has received an infusion of IVIg. PHYSICAL EXAMINATION: Vital Signs: Temperature is 98 degrees, pulse 66, respirations 19, blood pressure 136/76. General: This is a somewhat ill-appearing obese elderly male. He is in no acute distress. Head, eyes, ears, nose, and throat: He can hear my spoken words and see near objects. He does not have a white coating on his tongue. Neck: He does not have any pain when he moves his neck. Lungs: Clear to auscultation. Cardiovascular: Heart rate is regular. Abdomen: Soft and nontender. Neurologic: The patient is alert can move his extremities. There is no tremor. LAB AND X-RAY: Chest x-ray shows worsening on the right side and improvement on the left side. Blood gases show a pH of 7.43, a PO2 of 81, and a pCO2 of 34, creatinine is 2.5. GFR is 26. ALT is 45. The patient had an immunoglobulin deficiency he received IVIg and now his immunoglobulin levels are normal. ASSESSMENT AND PLAN: The patient has pneumonia. I am going I am going to discuss with Dr. Pruitt who is the patient's hospitalist and Dr. Vera about sending the patient home. I have come up with a prescription through the computer for Ceftin 500 mg p.o. every 12 hours and doxycycline 100 mg p.o. every 12 hours, both for 10 days. As regarding the patient's immunoglobulin deficiency I plan to wait for 6 to 8 weeks and then repeat the immunoglobulin levels. If IgG has become low again then I think the patient may need to have monthly immunoglobulin infusions in order to prevent further infections. COMORBIDITIES: The patient has diabetes mellitus, prostate cancer, and gastroesophageal reflux disease. cc: Richardson Cardenas MD
[2019-04-16 12:11] VITALS: BP 153/59
--- NOTE | 2019-04-16 19:25 | DISCHARGE SUMMARY ---
ADMISSION DATE: 04/11/2019 DISCHARGE DATE: 04/16/2019 PRIMARY CARE PHYSICIAN: Dr. Kirby Osorio. ADMISSION DIAGNOSES: 1. Sepsis secondary to a right lower lobe pneumonia. 2. Right lower lobe community-acquired pneumonia. 3. Suspect underlying chronic obstructive pulmonary disease. 4. Paroxysmal atrial fibrillation with rapid ventricular response. 5. Possible congestive heart failure with preserved EF due to atrial fibrillation. 6. Acute on chronic kidney failure. DISCHARGE DIAGNOSES: 1. An acute hypoxemic respiratory failure secondary to multifocal pneumonia improved. 2. Sepsis secondary to pneumonia improved. 3. Severe multifocal community-acquired pneumonia with immunoglobulin deficiency, improved. 4. Suspected chronic obstructive pulmonary disease with bronchospasms, improved. 5. Paroxysmal atrial fibrillation initially with rapid ventricular response, now rate controlled. 6. Congestive heart failure with preserved EF. 7. Acute on chronic renal failure improved. SUMMARY OF FINDINGS: This is a 73-year-old male who presented to the emergency room with a 2-week history of shortness of breath and cough had a day history of vomiting and 1-day history of diarrhea. He had been treated with Keflex a week ago for a cellulitis of the right lower extremity. He was found when he arrived to be tachycardic with atrial fibrillation. His pulse oximeter on room air was 87%. His chest x-ray showed a stable dense pneumonia in the right lung base, worsening hazy pneumonia in the left lung base. He was admitted. We consulted Cardiology and Pulmonology and Nephrology and Infectious Disease to follow. He was placed on IV antibiotics, breathing treatments, O2 per protocol, steroids weaned as he improved. He now has a white count within normal limits at 9.78, his O2 saturation is now 92% on room air and it is felt that he can safely be discharged home. DISCHARGE MEDICATIONS: Include Norvasc 10 mg p.o. daily, Ceftin 500 mg p.o. q.12 hours #40 with no refills, doxycycline 100 mg p.o. q.12 #20 with no refills, hydralazine 100 mg p.o. t.i.d. [place] 10, 1 p.o. q.6 hours p.r.n., NovoLog 45 units subcu t.i.d., Cozaar 100 mg p.o. daily, metoprolol 50 mg p.o. b.i.d., Prilosec 40 mg p.o. daily, oxybutynin 5 mg p.o. t.i.d. p.r.n., Luz-Colace 1 p.o. daily, simvastatin 40 mg p.o. at bedtime Coumadin 2.5 mg p.o. at bedtime. FOLLOWUP: He will follow up with his primary care physician in 1 to 2 weeks and call his office for an appointment. He will follow up with Infectious Disease on 04/25/2019 at 11:15 a.m. and with Cardiology on 05/01/2019 at 2:15 p.m. He does need to have his INR checked in the next 2 days at either his PCP or at a Coumadin clinic. All discharge instructions have been reviewed with the patient and he verbalized understanding. TIME SPENT: This is a 35 minute discharge. Dictated by ALEXANDRA Taylor for Ganga Pruitt MD cc: MD Nuria Reyes CRNP Leroy F. Harris, MD Ashish K. Basu, MD Agree with the above. the following is my own face to face assessment. patient with respiratory difficulty, primarily due to pneumonia but also had mild copd exacerbation. no clear volume overload but chronic diastolic chf may have been contributing slightly as well. now improved and stable for discharge. lungs largely CTAB now. INR slightly supratherapeutic so coumadin dose reduced and will need close follow-up which was relayed to the patient. MTDD
[2019-04-16] MEDS ORDERED: COUMADIN PO SCH (21:00)
== END 2019-04-16 13:30 | disposition home or self-care (01) | DRG 871 ==
LOC: ED 10:22 → SUATTDRO 12:51 → 2N 12:51 → ICU 04-12 12:34 → 2N 04-15 15:24
PROVIDERS: ATTEND Internal Medicine

== ENCOUNTER 2019-09-11 07:54 | Inpatient (IN) ==
[2019-09-04 09:00] LABS: URINE SOURCE CLEAN CATCH
[2019-09-04 09:14] LABS: BASO# 0.07 X1000 (0.0-0.2); BASO% 0.9 % (0.0-0.8); EOS# 0.22 X1000 (0.0-0.7); EOS% 2.7 % (0.0-10.0); HEMATOCRIT 38.2 % (42.0-52.0); HEMOGLOBIN 12.2 g/dL (14.0-18.0); IMM GRAN# 0.02 X1000 (0.0-0.04); IMM GRAN% 0.2 % (0.0-0.5); LYMPH# 2.26 X1000 (1.2-3.4); LYMPH% 28.1 % (20.5-51.1); MCHC 31.9 g/dL (33-37); MCV 84.5 FL (81-99); MONO# 0.66 X1000 (0.11-0.59); MONO% 8.2 % (1.7-9.3); MPV 11.7 FL (7.4-10.4); NEUT% 59.9 % (42.2-75.2); PLT 195 X1000 (130-400); RBC 4.52 XMIL (4.7-6.1); RDW 14.5 % (11.5-14.5); WBC 8.03 X1000 (4.8-10.8)
[2019-09-04 09:17] LABS: INR 1.9; PROTIME 22.2 Seconds (11.0-16.0)
[2019-09-04 09:53] LABS: BILIRUBIN URINE NEGATIVE (NEGATIVE); BLOOD URINE TRACE (NEGATIVE); COLOR YELLOW; GLUCOSE URINE NEGATIVE (NEGATIVE); KETONE URINE NEGATIVE (NEGATIVE); LEUKOCYTES URINE NEGATIVE (NEGATIVE); NITRITE URINE NEGATIVE (NEGATIVE); PH URINE 6.5; PROTEIN URINE 200 mg/dL (NEGATIVE); SP GRAVITY URINE 1.007; TURBIDITY URINE CLEAR (CLEAR); UR EPITHELIAL CELLS <10 /HPF (<10); URINE BACTERIA NEGATIVE /HPF; URINE RBC <10 /HPF (<10); URINE WBC <10 /HPF (<10); UROBILINOGEN URINE NORMAL (NORMAL)
[2019-09-04 10:00] LABS: CALCIUM 9.6 mg/dL (8.8-10.2); CREATININE 2.4 mg/dL (0.7-1.2); POTASSIUM 4.1 mmol/L (3.5-5.1)
[2019-09-04 11:16] LABS: HEMOGLOBIN A1C 7.2 % (4.8-6.0)
[2019-09-11] MEDS ORDERED: DIPRIVAN 1% ONE (08:19)
[2019-09-11] MEDS ORDERED: LYRICA ONE (08:27)
[2019-09-11] MEDS ORDERED: PEPCID ONE (08:27)
[2019-09-11] MEDS ORDERED: REGLAN ONE (08:27)
[2019-09-11] MEDS ORDERED: LR 1,000 ML ONE (08:27)
[2019-09-11] MEDS ORDERED: COLACE ONE (08:27)
[2019-09-11] MEDS ORDERED: KEFZOL 1 GM/D5W 2 GM/100 ML IVPB ONE (08:27)
[2019-09-11] MEDS ORDERED: TORADOL ONE (09:36)
[2019-09-11] MEDS ORDERED: DURAMORPH ONE (09:36)
[2019-09-11] MEDS ORDERED: MARCAINE 0.25% PF ONE (09:36)
[2019-09-11] MEDS ORDERED: VANCOMYCIN ONE (09:37)
[2019-09-11] MEDS ORDERED: NEOSPORIN G.U. IRRIGANT ONE (09:37)
[2019-09-11] MEDS ORDERED: EXPAREL 1.3% ONE (09:37)
[2019-09-11] MEDS ORDERED: SODIUM CHLORIDE 0.9% ONE (09:37)
[2019-09-11] MEDS ORDERED: NEO-SYNEPHRINE ONE (10:11)
[2019-09-11] MEDS ORDERED: XYLOCAINE-MPF 2% ONE (10:33)
[2019-09-11] MEDS ORDERED: FENTANYL ONE (10:34)
[2019-09-11] MEDS ORDERED: DECADRON ONE (10:49)
[2019-09-11] MEDS ORDERED: ROBINUL ONE (10:49)
[2019-09-11] MEDS ORDERED: ZOFRAN ONE (10:49)
[2019-09-11] MEDS ORDERED: OFIRMEV 1000 MG/ISOTONIC SOLN 1,000 MG/100 ML BOTTLE ONE (12:01)
[2019-09-11 12:13] LABS: URINE SOURCE CATH
[2019-09-11] MEDS ORDERED: NS 1,000 ML ONE (12:20)
[2019-09-11 12:21] LABS: BILIRUBIN URINE NEGATIVE (NEGATIVE); BLOOD URINE NEGATIVE (NEGATIVE); COLOR YELLOW; GLUCOSE URINE NEGATIVE (NEGATIVE); KETONE URINE NEGATIVE (NEGATIVE); LEUKOCYTES URINE NEGATIVE (NEGATIVE); NITRITE URINE NEGATIVE (NEGATIVE); PROTEIN URINE 200 mg/dL (NEGATIVE); SP GRAVITY URINE 1.012; TURBIDITY URINE CLEAR (CLEAR); UROBILINOGEN URINE NORMAL (NORMAL)
[2019-09-11 12:22] LABS: UR EPITHELIAL CELLS <10 /HPF (<10); URINE BACTERIA NEGATIVE /HPF; URINE RBC <10 /HPF (<10); URINE WBC <10 /HPF (<10)
[2019-09-11] MEDS ORDERED: DILAUDID ONE (12:30)
[2019-09-11] MEDS ORDERED: PHENERGAN ONE (12:32)
--- NOTE | 2019-09-11 12:55 | Diag Imaging Result Doc PS360 ---
KNEE 1-2 VIEWS-RIGHT - 09/11/2019 INDICATION: right TKA TECHNIQUE: Two views COMPARISON: 08/16/2013 FINDINGS: There has been right total knee arthroplasty with patellar resurfacing. Alignment is anatomic. No hardware fracture or loosening. IMPRESSION: No complication. Electronically signed by Jatin Peralta 09/11/2019 12:52 PM
[2019-09-11] MEDS ORDERED: MILK OF MAGNESIA PO PRN (13:45)
[2019-09-11] MEDS ORDERED: MORPHINE IV PRN (13:45)
[2019-09-11] MEDS: OXY IR PO PRN ×2 (15:12→21:02)
--- NOTE | 2019-09-11 15:12 | OPERATIVE NOTE ---
PROCEDURE DATE: 09/11/2019 PREOPERATIVE DIAGNOSIS: Degenerative arthritis right knee. POSTOPERATIVE DIAGNOSIS: Degenerative arthritis right knee. PROCEDURE: Right total knee arthroplasty with DePuy Attune size 8 posterior stabilized femur, size 8 tibial tray, a 7 mm rotating platform tibial insert, and a 38 mm medialized anatomic patella. SURGEON: Lucy Cotton. ENTERTAINMENT LAWYER: Sagrario Wilson, who was necessary for proper traction, manipulation of the extremity during the case and improved efficiency. SECOND REFRIGERATION MECHANIC: Kaiden Gr RN. ANESTHESIA: General. IV FLUIDS: 800 mL lactated Ringer's. ESTIMATED BLOOD LOSS: 50 mL. TOURNIQUET TIME: 75 minutes at 300 mmHg. COMPLICATIONS: None. INDICATION: The patient is a 73-year-old male with chronic history of pain from his right knee. He has continued with pain and discomfort despite appropriate nonoperative treatment. X-rays revealed degenerative osteoarthritis. Recommendation to proceed with right total knee arthroplasty was offered. Risks and benefits of surgery were explained, including the risks of anesthesia, , bleeding, infection, failure to relieve pain, postoperative stiffness, nerve injury, blood clots, and other imponderables. All questions answered. The patient and family wished to proceed with surgery. DETAILS OF OPERATION: The patient taken to the operating room and placed supine on the operating table. Once adequate anesthesia was obtained, patient's right lower extremity was subsequently prepped and draped in usual sterile fashion. Esmarch was used to exsanguinate the right lower extremity. Tourniquet 300 mmHg. A standard anterior incision made with skin knife. Medial and skin envelopes were developed. Standard medial parapatellar arthrotomy was then performed. Patella fat pad was excised. Approximately 1 cm anterior to the PCL insertion, a starting reamer was passed in the intramedullary canal of the femur. Intramedullary guide was then placed. The distal femoral cutting block was pinned in position. Distal femoral cut was then performed. A sizing block was placed in size 8. Corresponding pins were placed. A size 8 cutting block was placed in position. Anterior, posterior, and chamfer cuts were then made. Attention then turned to the proximal tibia where using the extramedullary guide, the proximal tibia cutting block was pinned in position. Proximal tibia had good alignment confirmed with the alignment abril. Proximal tibia was then resected. Medial and lateral menisci were excised. A curved osteotome was used to remove the posterior osteophytes off the distal femur. A spacer block was placed and good soft tissue balance in both flexion and extension. Attention was turned back to the proximal tibia where a size 8 tibial tray appeared to correct size appear this pinned in position. This followed by a central reamer and a fin punch. A box cutting guide was then pinned on the distal femur. A box cut was performed. A trial femoral component was then placed. Two lug holes were drilled. Trial tibial insert was then placed and good soft tissue balancing. The patella was everted resected standard fashion. A size 38 appeared to correct size. The holes were drilled. The trial patella component was then placed and had good patellofemoral tracking. All trial components were then removed. Copious irrigation then performed with antibiotic pulsatile lavage. Vancomycin was mixed cement on back table. Sequential cementing was then performed first with the tibial tray and excess cement with a [place] followed by the femoral component. Excess cement with a [place] followed by trial tibial insert in full extension. Axial loading was maintained while cement cured. Peripheral cement was removed with a small osteotome. Patella component was cemented in standard fashion. Patella clamp was placed. While the cement was curing, Exparel was placed in deep soft tissue, as well subcutaneous tissue. After cement had cured peripheral cement was removed with a small osteotome. A size 7 mm rotating platform tibial insert was then placed. The trial insert was removed. Exparel was placed in deep posterior capsule. The wound was copiously with antibiotic pulsatile lavage. 7 mm rotating platform tibial insert was then placed. The knee was then carried through range of motion. Good range of motion, good soft tissue balance, good patellofemoral tracking. A 1/8 Hemovac drain was placed and was not sewn in appeared. The wound was copiously irrigated with antibiotic pulsatile lavage. Number 1 Vicryl used to repair the arthrotomy, followed by 2-0 Vicryl to repair subcutaneous tissue and skin antoinette. Adaptic, sterile 4 x 4s, Webril, cryo unit, Huseyin wraps were applied to the right lower extremity. Patient tolerated the procedure well and was transferred to the recovery room in stable condition. cc: Gideon Calixto MD
[2019-09-11] MEDS: NS 1,000 ML IV SCH (15:13)
[2019-09-11] MEDS: APRESOLINE PO SCH ×3 (16:32→22:00)
[2019-09-11] MEDS: KEFZOL 2 GM/D5W 2 GM/50 ML IVPB IV SCH (17:04)
[2019-09-11] MEDS: TYLENOL PO SCH (17:05)
[2019-09-11] MEDS: MORPHINE IV PRN (17:05)
[2019-09-11] MEDS ORDERED: COUMADIN PO ONE (21:00)
[2019-09-11] MEDS: LOPRESSOR PO SCH ×2 (21:02→22:00)
[2019-09-11] MEDS: ZOCOR PO SCH (21:03)
[2019-09-11] MEDS: HUMALOG SUBQ SCH (21:04)
[2019-09-11] MEDS: LOVENOX SUBQ SCH (21:04)
[2019-09-12] MEDS: KEFZOL 2 GM/D5W 2 GM/50 ML IVPB IV SCH (02:06)
[2019-09-12] MEDS: OXY IR PO PRN ×3 (02:06→10:20)
[2019-09-12] MEDS: NS 1,000 ML IV SCH (02:07)
[2019-09-12] MEDS ORDERED: XARELTO PO SCH (06:00)
[2019-09-12] MEDS: TYLENOL PO SCH ×4 (06:15→22:27)
[2019-09-12 07:10] LABS: INR 1.1; PROTIME 14.4 Seconds (11.0-16.0)
[2019-09-12 07:30] LABS: HEMATOCRIT 28.7 % (42.0-52.0); HEMOGLOBIN 8.7 g/dL (14.0-18.0)
[2019-09-12 08:23] LABS: CALCIUM 8.1 mg/dL (8.8-10.2); CREATININE 3.6 mg/dL (0.7-1.2)
[2019-09-12] MEDS: ROBAXIN PO SCH (08:42)
[2019-09-12] MEDS: LOPRESSOR PO SCH ×3 (08:44→23:15)
[2019-09-12] MEDS: HUMALOG SUBQ SCH ×2 (08:44→23:30)
[2019-09-12] MEDS: PERIDEX MT SCH ×2 (08:45→23:14)
[2019-09-12] MEDS: LOVENOX SUBQ SCH ×2 (08:46→23:14)
[2019-09-12] MEDS ORDERED: COZAAR PO SCH (09:00)
[2019-09-12] MEDS ORDERED: LASIX PO SCH (09:00)
[2019-09-12] MEDS: PERICOLACE PO SCH (10:20)
--- NOTE | 2019-09-12 11:28 | ORTHOPAEDICS PROGRESS NOTE ---
DATE: 09/12/2019 SUBJECTIVE: The patient is a pleasant 74-year-old male who is 1 day status post right total knee arthroplasty. He is currently resting comfortably. PHYSICAL EXAMINATION: The patient's right lower extremity wound looks good. There are no signs or symptoms of infection. He has active dorsiflexion and plantar flexion. He is grossly neurovascularly intact distally. LABORATORY DATA: His labs are pending. IMPRESSION: Postoperative day #1 status post right total knee arthroplasty. PLAN: At this point, I will plan on discharging home later today if is mobilizing well with physical therapy. He is being bridged with Lovenox and his Coumadin has been resumed last night. cc: Gideon Calixto MD
[2019-09-12] MEDS: APRESOLINE PO SCH ×3 (13:24→23:15)
[2019-09-12] MEDS: ZOFRAN PO PRN (13:46)
--- NOTE | 2019-09-12 14:41 | Diag Imaging Result Doc PS360 ---
EXAM: US RENAL 2 (RETROPER) COMPLETE 09/12/2019 HISTORY: decreased renal function TECHNIQUE: Renal ultrasound COMMENT: The right kidney is 9.1 x 4.5 x 5 cm the left is 10.9 x 4.3 x 4.8 cm. The bladder is not distended. There is no evidence of hydronephrosis or mass. The kidneys are less hyperechoic than on the previous study of 10/06/2016. There are also smaller. IMPRESSION: Diminished renal size. No evidence of obstructive uropathy. Electronically signed by Camilo Madden 09/12/2019 2:39 PM
[2019-09-12] MEDS ORDERED: NS 500 ML IV SCH (15:15)
[2019-09-12] MEDS ORDERED: NS 1,000 ML IV SCH (15:45)
[2019-09-12] MEDS: MORPHINE IV PRN ×2 (18:10→23:16)
[2019-09-12 18:39] LABS: URINE SOURCE CATH
[2019-09-12 18:49] LABS: BILIRUBIN URINE NEGATIVE (NEGATIVE); BLOOD URINE TRACE (NEGATIVE); COLOR YELLOW; GLUCOSE URINE TRACE mg/dL (NEGATIVE); KETONE URINE TRACE mg/dL (NEGATIVE); LEUKOCYTES URINE NEGATIVE (NEGATIVE); NITRITE URINE NEGATIVE (NEGATIVE); PROTEIN URINE 50 mg/dL (NEGATIVE); SP GRAVITY URINE 1.016; TURBIDITY URINE CLEAR (CLEAR); UROBILINOGEN URINE NORMAL (NORMAL)
[2019-09-12 18:50] LABS: UR EPITHELIAL CELLS <10 /HPF (<10); URINE BACTERIA NEGATIVE /HPF; URINE RBC <10 /HPF (<10); URINE WBC <10 /HPF (<10)
[2019-09-12 18:59] LABS: UR CREAT RANDOM 124.7 mg/dL (14-26); UR PROT RANDOM 56.8 mg/dL
--- NOTE | 2019-09-12 21:33 | NEPHROLOGY CONSULTATION ---
DATE: 09/12/2019 REASON FOR ADMISSION: Right total knee replacement. REASON FOR CONSULT: Acute kidney injury on CKD stage 4. REQUESTING PHYSICIAN: Dr. Steffanie Calixto per ALEXANDRA Gordon. HISTORY OF PRESENT ILLNESS: Mr. Cotton is a 74-year-old white male who is known to our outpatient services for chronic kidney disease stage 4. His baseline creatinine is 2.4 to 2.8. Last seen in our office in June, with a planned followup in December 2019. The patient had scheduled 2 weeks ago a right total knee replacement, with previous knee arthroscopy per Dr. Calixto in the past. He had preoperative lab done, indicating a creatinine of 2.4 approximately a week ago. Prior to discharge today his labs were drawn indicating a BUN of 47 and creatinine of 3.6. Due to these findings, we have been consulted to continue to monitor and follow. The patient is currently sitting up in a chair. He denies any chest pain. No increased work of breathing. No nausea, vomiting or diarrhea. Positive for lower extremity swelling on the right only. No fever or chills. The patient has had a history of atrial fibrillation with RVR in the past, previously seen in March 2019. PAST MEDICAL HISTORY: Chronic kidney disease stage 4, baseline creatinine 2.4 to 2.8 in 2019; history of atrial fibrillation with RVR; history of pneumonia, right lower lung on 04/11/2019; has history of diabetes mellitus type 2; hypertension; obesity; prostate cancer; hyperlipidemia; GERD. PAST SURGICAL HISTORY: Arthroscopy to right and left knees; left knee replacement; appendectomy; unspecified prostate surgery. SOCIAL HISTORY: He is retired. He is . He quit smoking approximately 30 years ago. Denies alcohol or illicit drug use. FAMILY HISTORY: Negative for coronary artery disease or endstage renal disease. ALLERGIES: Listed as lisinopril and sulfa. MEDICATIONS: Home medications are listed as Cozaar, Zocor, Luz-Colace, hydralazine NovoLog, Lopressor, Coumadin, furosemide, methocarbamol, multivitamin and hydrocodone. REVIEW OF SYSTEMS: Review x10, with pertinent positives listed above in the HPI. VITAL SIGNS: Most recent temperature 97.9 degrees, blood pressure 116/71, heart rate 93, respirations 20. He is on room air. Last recorded saturation 95%. LABORATORY DATA: Sodium 134, potassium 5, chloride 100, CO2 is 20, BUN 47, creatinine 3.6, glucose 222. His anion gap is 14, calcium is 8.1. White count 8.7, hemoglobin 28.7. He has had 3240 in, 1075 out to void. PHYSICAL EXAMINATION: General: This is a 74-year-old white male. He is sitting up in a chair. He appears in no acute distress. Skin: Warm and dry. HEENT: Normocephalic, atraumatic. Conjunctiva are pale pink. He has JANNY. Mucous membranes are dry. Neck: Supple. Trachea midline. No JVD in the upright position. Cardiovascular: He is regular rate and rhythm. No appreciable murmur or gallop. Lungs: Clear to auscultation anteriorly. Equal excursion on room air. Abdomen: Large, round, soft, nontender. Positive bowel sounds. Genitourinary: Not inspected. The patient has adequate urine output noted. Extremities: Swelling to the right knee. He has good flexion present. Pulses palpable bilateral. No edema to the left. Neurologic: Alert and oriented x3. ASSESSMENT AND PLAN: 1. Acute kidney injury on chronic kidney disease. The patient's baseline creatinine is 2.4 to 2.8 in 2019. Creatinine today is 3.6. Adequate urine output has been documented. We will check urine electrolytes. We will check a renal ultrasound. Repeat labs in the a.m. 2. Electrolytes and acid-base balance. These are acceptable. 3. Anemia. This is low but stable. 4. Right total knee replacement. This is followed by Dr. Calixto and team. The patient is postoperative day #1. He is currently on Lovenox to be bridged over to Coumadin. He is to receive [facility] after discharge. He has been receiving normal saline at 75 mL/h. This has currently been stopped. PLAN: The patient states that he is to be discharged this afternoon. We have indicated that his kidney level is elevated. He states that he has been feeling well. No problems urinating. We will plan to get our urine electrolytes and ultrasound. I have discussed that if he is discharged, we will follow up in 2-3 weeks with repeat labs, to stay well hydrated, to call us if he is placed on any antibiotics during this period of time. Otherwise we will plan to see the patient in the a.m. and re-evaluate his labs and ultrasound results. I would like to thank you for allowing us to follow with this patient. Dictated by ALEXANDRA Patricia for Kvng Steiner MD Discussed with with Miki Reyes on 09/12/19. I agree with the above assessment and plan of care. cc: ALEXANDRA Patricia MD Robert S. Tapscott, MD MTDD
[2019-09-12] MEDS: COUMADIN PO SCH (23:15)
[2019-09-12] MEDS: ZOCOR PO SCH (23:15)
[2019-09-13] MEDS: TYLENOL PO SCH ×4 (03:27→21:08)
[2019-09-13 06:37] LABS: BASO# 0.05 X1000 (0.0-0.2); BASO% 0.6 % (0.0-0.8); EOS# 0.19 X1000 (0.0-0.7); EOS% 2.3 % (0.0-10.0); HEMATOCRIT 20.4 % (42.0-52.0); HEMOGLOBIN 6.2 g/dL (14.0-18.0); IMM GRAN# 0.02 X1000 (0.0-0.04); IMM GRAN% 0.2 % (0.0-0.5); LYMPH# 1.34 X1000 (1.2-3.4); LYMPH% 16.5 % (20.5-51.1); MCH 26.7 PG (27-31); MCHC 30.4 g/dL (33-37); MCV 87.9 FL (81-99); MONO% 12.3 % (1.7-9.3); MPV 11.7 FL (7.4-10.4); NEUT# 5.52 X1000 (1.4-6.5); NEUT% 68.1 % (42.2-75.2); PLT 115 X1000 (130-400); RBC 2.32 XMIL (4.7-6.1); RDW 14.7 % (11.5-14.5); WBC 8.12 X1000 (4.8-10.8)
[2019-09-13 07:02] LABS: ALBUMIN 3.3 g/dL (3.5-5.0); CALCIUM 8.1 mg/dL (8.8-10.2); CREATININE 3.9 mg/dL (0.7-1.2); PHOSPHORUS 4.1 mg/dL (2.7-4.5); POTASSIUM 4.5 mmol/L (3.5-5.1)
[2019-09-13] MEDS: MORPHINE IV PRN ×3 (08:52→17:28)
[2019-09-13] MEDS: APRESOLINE PO SCH ×3 (08:53→21:08)
[2019-09-13] MEDS: PERICOLACE PO SCH (08:54)
[2019-09-13] MEDS: LOPRESSOR PO SCH ×2 (08:54→21:08)
[2019-09-13] MEDS: ROBAXIN PO SCH (08:54)
[2019-09-13] MEDS: PERIDEX MT SCH ×2 (08:54→21:08)
[2019-09-13] MEDS: LOVENOX SUBQ SCH ×2 (08:54→21:08)
[2019-09-13] MEDS: HUMALOG SUBQ SCH ×4 (09:49→17:20)
--- NOTE | 2019-09-13 11:55 | Diag Imaging Result Doc PS360 ---
EXAM: CHEST-1 VIEW HISTORY: jonna. assess for pulm edema TECHNIQUE: Single view COMPARISON: 09/04/2019 FINDINGS: The lungs are well expanded. The heart is not enlarged. The vessels are not distended. There are no infiltrates. No effusion identified. Scattered granuloma. Scarring in the lower right lung. IMPRESSION: No pulmonary edema. Electronically signed by Guero Gonzalez 09/13/2019 11:52 AM
[2019-09-13 14:54] LABS: INR 1.26
--- NOTE | 2019-09-13 17:43 | Diag Imaging Result Doc PS360 ---
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 Stable atrophy and chronic microvascular ischemia. No intracranial mass or hemorrhage. The skull is intact. The sinuses are clear. IMPRESSION: No acute process. This exam was performed using automated exposure control, adjustment of mA or kV according to patient size, and/or use of iterative reconstruction technique Electronically signed by Jatin Peralta 09/13/2019 5:41 PM
[2019-09-13 19:31] LABS: BLOOD TYPE ARTERIAL; HCO3-(ACT) 21.8 mmoll (20.0-26.0); METHB 1.1 % (0.0-1.5); O2(CT) 8.1 mL/dL (15.0-23.0); O2HB 92.2 % (95.0-99.0); PCO2(98.6) 33 mmHg (35-45); PO2(98.6) 57 mmHg (60-100); SAMPLE BLOOD; SAO2 95.6 % (95.0-100.0); THB 6.2 g/dL (11.5-17.4)
[2019-09-13 19:33] LABS: MODALITY ROOM AIR
--- NOTE | 2019-09-13 19:40 | Diag Imaging Result Doc PS360 ---
ABDOMEN FLAT/UPRIGHT - 09/13/2019 INDICATION: constipation COMPARISON: 04/12/2019 FINDINGS: There is constipation of the proximal colon. No small bowel obstruction. IMPRESSION: Mild constipation. Electronically signed by Jatin Peralta 09/13/2019 7:37 PM
[2019-09-13 19:42] LABS: HEMATOCRIT 20.6 % (42.0-52.0); HEMOGLOBIN 6.4 g/dL (14.0-18.0)
--- NOTE | 2019-09-13 19:53 | ORTHOPAEDICS PROGRESS NOTE ---
DATE: 09/13/2019 SUBJECTIVE: Mr. Cotton is a 74-year-old male with history of chronic kidney disease, who is status post a right total knee arthroplasty. He is resting comfortably in bed this morning. He did have some drainage from his incision overnight and his dressings had to be changed frequently. He was taking Coumadin prior to his surgery, and his doctor took him off the Coumadin and was giving him Lovenox to make it through surgery, and then the plan was to bridge him with Lovenox again and restart his Coumadin. We are checking his PT/INR. Nephrology has also been consulted due to the fact that Mr. Cotton's creatinine yousif from 2.4 prior to surgery, to 3.6 yesterday and 3.9 today. His urine output today has been 400 mL and yesterday was 600 mL. He states that he has been drinking large amounts of fluid throughout the day. His hemoglobin and hematocrit were noted to have dropped to 6.2 and 20.4 this morning. He is receiving his first unit of packed red blood cells at this time. OBJECTIVE: Mr. Cotton is resting comfortably in bed at this time. His sensation is intact distally to his incision on his right lower extremity. He is able to dorsiflex and plantar flex his right foot. He is able to wiggle his toes. He is having some swelling to his bilateral lower legs and he states that this is his baseline. He has mild swelling as expected to his right knee. His antoinette are in place and he is having some light drainage from the area at this time. The dressing that is intact does have some saturation of some bloody fluid. There is no redness surrounding his wound to suggest an infection at this time. His calf is nontender to palpation. He has negative Homans. CURRENT LABORATORY DATA: Hemoglobin and hematocrit of 6.2 and 20.4. His sodium is 133. His creatinine has risen to 3.9, and his BUN is 55. MOST RECENT VITAL SIGNS: Blood pressure of 115/53 and a heart rate of 101. He is saturating 100% on room air. ASSESSMENT: 1. Status post right total knee arthroplasty. 2. Anemia due to blood loss from surgery. 3. Chronic kidney disease. PLAN: At this time, we have consulted the hospitalist team to help manage Mr. Cotton's comorbidities. Nephrology saw him yesterday, and obtained a renal ultrasound, as well as some additional labs this morning. Mr. Cotton will stay in the hospital again tonight. Dictated by ALEXANDRA Murry for Gideon Calixto MD cc: Gideon Calixto MD
[2019-09-13 20:20] LABS: IRON SATURATION 14 %; TIBC 204 ug/dL; TOTAL IRON 29 ug/dL (53-167); UNBOUND IRON 175 ug/dL (112-346)
[2019-09-13 20:35] LABS: FERRITIN 124 ng/mL (30-400)
--- NOTE | 2019-09-13 20:37 | NEPHROLOGY PROGRESS NOTE ---
DATE: 09/13/2019 SUBJECTIVE: He is lying in bed. No shortness of breath, nausea, or vomiting. He states his urine output has picked up. No cough. He does have a lot of swelling by his estimation. OBJECTIVE: Blood pressure 115/53, heart rate 101, respirations 14, temperature 99.5 degrees.General: No acute distress. Skin: Warm and dry. Conjunctivae are pink. Neck: Vein distention is present. Heart: Regular. No gallops. Lungs: Equal. No crackles or wheezes. Abdomen: Soft, nontender. Bowel sounds present. Extremities: Fusiform swelling 2+ of the right leg and a bandage on the right knee, trace on the left. IMPRESSION/PLAN: Acute kidney injury overlying history of chronic kidney disease. Baseline creatinine around 2.5. Creatinine yousif again today. Hemoglobin is markedly low having, fallen from 12.2 to 6.2 since the . He is receiving a transfusion currently. His acute kidney injury is likely related to prerenal factors that are postsurgical in origin. He continues to receive warfarin 7.5 mg daily, but his INR was 1.1 yesterday. No changes from my perspective. cc: MD Gideon Evans MD
[2019-09-13] MEDS: MIRALAX PO SCH (21:07)
[2019-09-13] MEDS: ZOCOR PO SCH (21:08)
[2019-09-13] MEDS: COUMADIN PO SCH (21:08)
[2019-09-13] MEDS: DULCOLAX PR SCH (21:09)
[2019-09-13] MEDS: HUMULIN R SUBQ SCH (21:10)
[2019-09-13] MEDS: COLACE PO SCH (21:10)
--- NOTE | 2019-09-13 22:21 | CONSULTATION ---
DATE OF CONSULTATION: 09/13/2019 REFERRING PHYSICIAN: Dr. Guerita Calixto. REASON FOR CONSULTATION: Medical management. HISTORY OF PRESENT ILLNESS: This is a 74-year-old gentleman with a history of chronic kidney disease stage 4, atrial fibrillation, diabetes mellitus, hypertension, and gastroesophageal reflux disease. He is status post right total knee arthroplasty on 09/11/2019. From an orthopaedic standpoint, he is doing well. He was found to have an elevated creatinine of 3.6, and the hospitalists have been consulted for medical management. PAST MEDICAL HISTORY: Diabetes mellitus type 2, chronic kidney disease stage 4 with a baseline creatinine of 2.4 to 2.8, history of atrial fibrillation with rapid ventricular response, obesity, history of prostate cancer, hyperlipidemia, gastroesophageal reflux disease. PAST SURGICAL HISTORY: Arthroscopy to right and left knees, left knee replacement, appendectomy, prostate surgery, and now right total knee. SOCIAL HISTORY: He is retired. He is . He smoked and quit about 30 years ago. He denies alcohol or illicit drug use. ALLERGIES: Listed as lisinopril and sulfa. HOME MEDICATIONS: Listed as furosemide, hydralazine, Osteen 7.5, NovoLog, Cozaar, methocarbamol, Lopressor, multivitamin, Luz-Colace, Coumadin, and Zocor. REVIEW OF SYSTEMS: Discussed with patient. Pertinent positives stated in HPI. He denied any syncope, dizziness, chest pain, any palpitations, any shortness of breath, cough, fever, chills, recent weight loss or weight gain, any nausea, vomiting, diarrhea, constipation, black or bloody vomitus or stools, hematuria, dysuria, frequency or urgency. PHYSICAL EXAMINATION: General: This is a 74-year-old gentleman who is lying in the bed in no distress. Vital Signs: Blood pressure is 115/53 with a heart rate of 100. Respirations are 14. Temperature is 99.5 oral with room air saturation 100%. Eyes: Pupils are equal and round and react to light. EOMs are intact. Sclerae are anicteric. HEENT: Head is normocephalic, atraumatic. Mucous membranes are moist. Neck: Supple with trachea midline. Cardiovascular: Regular rate and rhythm. S1, S2 appreciated. No murmur. Pulmonary: Breath sounds are clear with no increased work of breathing noted. Chest rise falls symmetrically with respiration. Gastrointestinal: Abdomen is soft, nontender, nondistended. Bowel sounds in all 4 quadrants. Extremities: Skin is warm and dry. He does have a Huseyin bandage to his right knee that is dry and intact. Pedal pulses are palpable bilaterally. LABS: WBCs 8.1 with hemoglobin 6.2, hematocrit 20.4, platelets of 115. Sodium 133, potassium 4.5, BUN 55, creatinine 3.9 with a glucose of 75. Chest x-ray reveals no pulmonary edema. No infiltrates. No effusion. ASSESSMENT AND PLAN: 1. Status post right total knee. He is followed by Orthopaedics. 2. Diabetes mellitus type 2. Continue with pattern blood sugars. We will place him on sliding- scale insulin, as the patient has not eaten well, and will reevaluate his home dose of medications. 3. Hypertension. We will continue his home medications, monitoring blood pressures. 4. History of atrial fibrillation with rapid ventricular response. We will continue anticoagulation and Lopressor. 5. Chronic kidney disease stage 4, followed by Nephrology. 6. Gastroesophageal reflux disease. Will add a proton pump inhibitor. Thank you for allowing us to participate in this patient's care. Plan was discussed with Dr. Davila. Dictated by ALEXANDRA Green for Renetta Davila MD cc: ALEXANDRA Green MD Robert S. Tapscott, MD
[2019-09-14] MEDS: TYLENOL PO SCH ×4 (03:13→20:40)
[2019-09-14] MEDS: HUMULIN R SUBQ SCH ×3 (06:39→20:40)
[2019-09-14] MEDS: PRILOSEC PO SCH (06:39)
[2019-09-14 07:43] LABS: INR 1.44; PROTIME 17.8 Seconds (11.0-16.0)
[2019-09-14 08:25] LABS: ALB/GLOB RATIO 1.7; ALBUMIN 3.8 g/dL (3.5-5.0); ALKALINE PHOSPHATASE 64 U/L (32-122); DIRECT BILIRUBIN < 0.10 mg/dL (0.00-0.20); GOT 38 U/L (10-34); GPT < 5 U/L (10-44); TOTAL BILIRUBIN 0.53 mg/dL (0.20-1.00)
[2019-09-14 08:26] LABS: ALBUMIN 3.7 g/dL (3.5-5.0); CALCIUM 8.9 mg/dL (8.8-10.2); POTASSIUM 5.5 mmol/L (3.5-5.1)
[2019-09-14] MEDS ORDERED: NS 500 ML IV ONE (08:40)
[2019-09-14] MEDS: ZOFRAN PO PRN (08:48)
[2019-09-14 09:08] LABS: RETIC% 3.67 % (0.8-2.1); RETIC-HE 34.6 PG (28.2-36.6)
[2019-09-14 09:09] LABS: BASO# 0.05 X1000 (0.0-0.2); BASO% 0.3 % (0.0-0.8); EOS# 0.03 X1000 (0.0-0.7); EOS% 0.2 % (0.0-10.0); HEMATOCRIT 19.5 % (42.0-52.0); HEMOGLOBIN 6.4 g/dL (14.0-18.0); IMM GRAN# 0.05 X1000 (0.0-0.04); IMM GRAN% 0.3 % (0.0-0.5); LYMPH# 1.29 X1000 (1.2-3.4); LYMPH% 8.1 % (20.5-51.1); MCH 28.6 PG (27-31); MCHC 32.8 g/dL (33-37); MCV 87.1 FL (81-99); MONO# 1.97 X1000 (0.11-0.59); MONO% 12.4 % (1.7-9.3); MPV 13.2 FL (7.4-10.4); NEUT# 12.53 X1000 (1.4-6.5); NEUT% 78.7 % (42.2-75.2); PLT 132 X1000 (130-400); RBC 2.24 XMIL (4.7-6.1); RDW 14.7 % (11.5-14.5); WBC 15.92 X1000 (4.8-10.8)
[2019-09-14] MEDS ORDERED: NITROGLYCERIN SL ONE (10:13)
[2019-09-14] MEDS: NITROGLYCERIN SL PRN ×2 (10:20→10:25)
[2019-09-14 10:26] LABS: LYMPHS 7 % (21-51); MONO 12 % (1-9); SEGS 81 % (42-75)
[2019-09-14 10:27] LABS: ANISOCYTOSIS 3+; HYPOCHROM 2+; LARGE PLATELETS 1+; MICROCYTOSIS 3+
[2019-09-14 10:28] LABS: HOWELL-JOLLY BODIES OCCASIONAL; POLYCHROM 1+
--- NOTE | 2019-09-14 10:34 | EKG Report ---
Test Performed on : 09/14/2019 10:21:34 AM Test Reason : chest pain Blood Pressure : / mmHG Vent. Rate : 110 BPM Atrial Rate : 110 BPM P-R Int : 144 ms QRS Dur : 074 ms QT Int : 358 ms P-R-T Axes : 002 -11 013 degrees QTc Int : 484 ms Sinus tachycardia. with occasional atrial-paced complexes and with occasional premature ventricular c omplexes. Abnormal ECG When compared with ECG of 15-APR-2019 18:05, Electronic atrial pacemaker has replaced Sinus rhythm. Vent. rate has increased BY 40 BPM Confirmed by Carlos MADSEN, Moe Menon ([id number]) on 09/16/2019 5:56:48 PM
[2019-09-14 10:47] LABS: URINE SOURCE CATH
[2019-09-14 10:52] LABS: BILIRUBIN URINE NEGATIVE (NEGATIVE); BLOOD URINE MODERATE (NEGATIVE); COLOR YELLOW; GLUCOSE URINE 500 mg/dL (NEGATIVE); KETONE URINE TRACE mg/dL (NEGATIVE); LEUKOCYTES URINE NEGATIVE (NEGATIVE); NITRITE URINE NEGATIVE (NEGATIVE); PROTEIN URINE 200 mg/dL (NEGATIVE); SP GRAVITY URINE 1.018; TURBIDITY URINE HAZY (CLEAR); UROBILINOGEN URINE NORMAL (NORMAL)
[2019-09-14 11:04] LABS: UR EPITHELIAL CELLS <10 /HPF (<10); URINE BACTERIA NEGATIVE /HPF; URINE CASTS NONE SEEN; URINE CRYSTALS NONE SEEN; URINE RBC <10 /HPF (<10); URINE SMALL ROUND CELLS NONE SEEN; URINE WBC <10 /HPF (<10); URINE YEAST NONE SEEN
[2019-09-14] MEDS: APRESOLINE PO SCH ×3 (11:47→20:39)
[2019-09-14] MEDS: COLACE PO SCH ×2 (11:48→20:40)
[2019-09-14] MEDS: ICAR-C PO SCH ×2 (11:49→20:40)
[2019-09-14] MEDS: MIRALAX PO SCH ×2 (11:49→20:39)
[2019-09-14] MEDS: LOPRESSOR PO SCH ×2 (11:49→20:40)
[2019-09-14] MEDS: PERIDEX MT SCH ×2 (11:50→20:39)
[2019-09-14] MEDS: PERICOLACE PO SCH (11:50)
--- NOTE | 2019-09-14 13:04 | Diag Imaging Result Doc PS360 ---
CHEST-1 VIEW - 09/14/2019 INDICATION: sepsis protocol COMPARISON: 09/13/2019 FINDINGS: There is cardiomegaly and pulmonary vascular congestion. Stable nodular density or granulomas bilaterally. There is some hazy interstitial infiltrate in the lung bases worse from prior exams suggesting pulmonary edema. No pleural effusions. IMPRESSION: Probable mild interstitial pulmonary edema. Cardiomegaly. Electronically signed by Jatin Peralta 09/14/2019 1:02 PM
[2019-09-14] MEDS ORDERED: LASIX IV ONE (13:35)
[2019-09-14] MEDS: MAXIPIME 1 GM in NS 50 ML IV SCH (13:36)
[2019-09-14] MEDS: LEVEMIR SUBQ SCH ×2 (13:36→20:40)
[2019-09-14 14:28] LABS: ALLEN TEST YES; BE -5.9 mmoll (-3.0-3.0); BLOOD TYPE ARTERIAL; HCO3-(ACT) 20.3 mmoll (20.0-26.0); METHB 1.4 % (0.0-1.5); O2(CT) 9.2 mL/dL (15.0-23.0); PCO2(98.6) 25 mmHg (35-45); PO2(98.6) 61 mmHg (60-100); SAMPLE BLOOD; SAO2 96.3 % (95.0-100.0); pH(98.6) 7.45 (7.35-7.45)
[2019-09-14 14:29] LABS: MODALITY ROOM AIR
[2019-09-14] MEDS ORDERED: FLEET ENEMA PR ONE (15:11)
[2019-09-14] MEDS ORDERED: FLEET MINERAL OIL ENEMA PR ONE (15:11)
[2019-09-14 15:36] LABS: CK INDEX 0.4 (0.0-2.5); CK-MB 6.72 ng/mL (0.0-5.0)
[2019-09-14] MEDS ORDERED: TYLENOL PO PRN (16:28)
[2019-09-14] MEDS: OXY IR PO PRN (18:17)
--- NOTE | 2019-09-14 18:43 | PROGRESS NOTE ---
DATE: 09/14/2019 SUBJECTIVE: The patient was noted to be febrile and was complaining of chest pain this morning. Also, he was noted to have a severely low hemoglobin and hematocrit, despite receiving a blood transfusion yesterday. As a result, the patient was transferred to [facility]. OBJECTIVE: Temperature max 101.3 degrees, blood pressure 176/90, heart rate 116, respirations 20, O2 saturation is 94% on 2 L nasal cannula. Intake 1.7 L, output 1.4 L.General: This is a chronically ill-appearing, elderly male, lying in bed in no acute distress. Heart: S1, S2 normal. Tachycardic. Lungs: Equal air entry bilaterally. No wheezing. No rales. Abdomen: Positive bowel sounds. Soft, distended. Extremities: Right knee is wrapped in a dressing. There is some serosanguineous fluid on the dressing. Neurologic: Alert and oriented x3. LABORATORY AND DIAGNOSTIC DATA: White blood cell count 15, hemoglobin 6.4, hematocrit 19, platelets 132,000. INR 1.4. Reticulocyte count 3.6. ABG, pH of 7.4, pCO2 of 25, PO2 of 61, bicarbonate 20. Sodium 130, potassium 5.5, chloride 96, CO2 of 19, BUN 53, creatinine 3, glucose 340. LDH 285. Troponin 430. Chest x-ray reveals mild pulmonary edema. ASSESSMENT AND PLAN: 1. Severe anemia. The patient has some bleeding from his surgical site. The anticoagulation has been discontinued. The patient will receive 2 units of packed red blood cells. We will repeat the hemoglobin and hematocrit after the patient's transfusion has completed. 2. Fever with leukocytosis. Blood cultures have been obtained. The urinalysis is negative and the chest x-ray reveals infiltrates that are consistent with pulmonary edema. We will start the patient on broad-spectrum antibiotics and follow up on the culture results. 3. Acute kidney injury on chronic kidney disease. Improved. Management as per the narrow fabrics weaver. 4. Status post right total knee arthroplasty. Management as per the orthopedic surgeon. 5. Hyperkalemia. We will repeat the potassium this evening. 6. Hyponatremia. The patient's sodium is slowly dropping. We will monitor closely. 7. Elevated troponin with chest pain. The patient is severely anemic. We will continue on Lopressor and will consult with the bottle sorter. 8. Constipation. Continue with scheduled laxative therapy. 9. Uncontrolled insulin-dependent diabetes mellitus. We will start the patient on Levemir 20 units subcutaneous twice a day. 10. Disposition. The patient and his were updated on the plan of care. cc: MD Gideon Roy MD
--- NOTE | 2019-09-14 19:43 | NEPHROLOGY PROGRESS NOTE ---
DATE: 09/14/2019 SUBJECTIVE: He was moved down to [facility] because of nausea and vomiting. He is not currently nauseated. He does have discomfort in the leg. No shortness of breath. OBJECTIVE: Blood pressure 163/90, heart rate 114, respirations 20, afebrile, intake 1.7 L, output 1.4 L.General: No acute distress. Skin: Warm and dry. Neck: Neck veins are not distended. Heart: Regular. Lungs: Equal. No crackles anteriorly. Abdomen: Soft, nontender. Bowel sounds present. Extremities: With 3+ edema in the right leg. Trace in the left. IMPRESSION: Acute kidney injury. Creatinine 3.0 today from a peak of 3.9 yesterday. Good urine output. This seems to have responded to transfusion. He does have modest hyperkalemia, hyponatremia, metabolic acidosis. Observe with no specific therapy. Chest x-ray with mild pulmonary edema. We will give a single dose of furosemide. cc: MD Gideon Evans MD
--- NOTE | 2019-09-14 19:53 | ORTHOPAEDICS PROGRESS NOTE ---
DATE: 09/14/2019 SUBJECTIVE: Mr. Cotton is not doing great. He is very nauseated. He just threw up when I came in the room. The knee overall is feeling okay. OBJECTIVE: General: I asked him some questions about his birthday and his name. He knew all those. He just did not know where he was. He thought he was in his living room Right lower extremity: His dressing is clean and dry today. He is a little slow moving his toes, but he is able to move his toes up and down and his ankle up and down. He has good sensation to light touch to the toes. ASSESSMENT: Status post right knee replacement. PLAN: I am going to get our hospitalist service to see Mr. Cotton again and see what may be going on. He may just be having some issues post anesthesia with his memory. I know that he ended getting a head CT yesterday which was clean. He will be getting blood today as well since his hemoglobin and hematocrit were low, and we will see how he does after that. cc: MD Gideon Manzanares MD
[2019-09-14] MEDS: ZYVOX PO SCH (20:40)
[2019-09-14 20:44] LABS: HEMATOCRIT 20.5 % (42.0-52.0); HEMOGLOBIN 6.6 g/dL (14.0-18.0)
--- NOTE | 2019-09-14 21:12 | CONSULTATION ---
DATE OF CONSULTATION: 09/14/2019 IMPRESSION: 1. Episode of vague chest discomfort this morning. Consider possible demand ischemia given that patient has developed a severe anemia postoperatively requiring transfusion. 2. Status post right knee replacement on 09/11/2019. 3. Stage 4 chronic kidney disease. 4. Paroxysmal atrial fibrillation. Patient has been managed with rate control and anticoagulation. Anticoagulation interrupted prior to surgery. Patient continues in sinus rhythm presently. 5. Hypertension. 6. Hyperlipidemia. 7. Type 2 diabetes mellitus. 8. Prostate cancer, previous prostate surgery. RECOMMENDATIONS: 1. Continue metoprolol as tolerated. 2. Hold on further warfarin administration pending stabilization of hematocrit. 3. Agree with transfusion of packed red blood cells. HISTORY: This 74-year-old white male with past history of paroxysmal atrial fibrillation, hypertension, hyperlipidemia, diabetes mellitus and chronic kidney disease was recently admitted and underwent right total knee replacement on 09/11/2019. Postoperatively he started having some problems with confusion and some shortness of breath. This morning he had chest discomfort which he describes further vaguely. He seems a bit confused when I see him. He has been found to have severe anemia with hematocrit 20 yesterday. He had a transfusion of 1 unit of red cells yesterday and his hematocrit today is 19. He is to receive further transfusion today. He has been managed with rate control and anticoagulation for his paroxysmal atrial fibrillation. Sounds like he had warfarin interrupted preoperatively and he was on Lovenox up until the day of surgery. He was started on warfarin postoperatively and his INR today is 1.7. PAST MEDICAL HISTORY: 1. Paroxysmal atrial fibrillation. 2. Hypertension. 3. Hyperlipidemia. 4. Diabetes mellitus type 2. 5. Chronic kidney disease stage 4. 6. Prostate cancer. Patient is status post previous prostate surgery. 7. Gastroesophageal reflux disease. PAST SURGICAL HISTORY: Also includes left total knee replacement, right knee arthroscopic surgery, appendectomy and prostate surgery. ALLERGIES: He is allergic or intolerant to lisinopril and sulfa medications. MEDICATIONS PRIOR TO ADMISSION: As listed. SOCIAL HISTORY: He is retired, . Quit smoking 30 years ago. He does not use alcohol. FAMILY HISTORY: Negative for premature coronary disease. REVIEW OF SYSTEMS: Pulmonary: Noteworthy for some nonproductive cough. Gastrointestinal: Noncontributory. Constitutional: Noncontributory. Remainder of review of systems negative/noncontributory with 14 total systems reviewed. PHYSICAL EXAMINATION: General: This is a obese, older white male in no distress. Vital signs: Blood pressure 163/90, heart rate 114 and regular, oxygen saturation 90% on nasal cannula oxygen at 2 L/minute. HEENT: Extraocular movements appear intact. Mucous membranes are moist. Neck: Supple without jugular venous distention. There are no carotid bruits. Chest: Clear to auscultation bilaterally with somewhat diminished breath sounds at bases. Cardiac: Reveals a regular rate and rhythm without appreciable murmur or gallop. Abdomen: Soft. Bowel sounds are normal. Extremities: Noteworthy for recent right knee replacement with bandage in place. The patient's right thigh is rather firm compared to left thigh. LABORATORY DATA: Includes white blood cell count 15.92, hematocrit 19.5, hemoglobin 6.4, platelet count 132,000. Pro time 17.8, INR 1.44. Sodium 130, potassium 5.5, chloride 96, carbon dioxide 19, BUN 53, creatinine 3.0, glucose 340. Troponin T high sensitivity 430. CPK/MB pending. EKG demonstrates sinus tachycardia with occasional premature supraventricular complex. cc: MD Gideon Phillip MD
[2019-09-14] MEDS ORDERED: NS 500 ML IV SCH (21:30)
[2019-09-14 21:37] LABS: CK INDEX 0.5 (0.0-2.5); CK-MB 6.54 ng/mL (0.0-5.0)
[2019-09-14] MEDS: NS 1,000 ML IV SCH (21:50)
[2019-09-14] MEDS: DULCOLAX PR SCH (21:57)
[2019-09-15] MEDS: TYLENOL PO SCH ×4 (03:43→20:29)
[2019-09-15 06:11] LABS: INR 1.52; PROTIME 18.6 Seconds (11.0-16.0)
[2019-09-15 06:33] LABS: BASO# 0.03 X1000 (0.0-0.2); BASO% 0.2 % (0.0-0.8); HEMATOCRIT 23.8 % (42.0-52.0); HEMOGLOBIN 7.7 g/dL (14.0-18.0); IMM GRAN# 0.03 X1000 (0.0-0.04); IMM GRAN% 0.2 % (0.0-0.5); LYMPH# 0.83 X1000 (1.2-3.4); LYMPH% 6.3 % (20.5-51.1); MCH 27.6 PG (27-31); MCHC 32.4 g/dL (33-37); MCV 85.3 FL (81-99); MONO# 1.72 X1000 (0.11-0.59); MPV 12.1 FL (7.4-10.4); NEUT# 10.67 X1000 (1.4-6.5); NEUT% 80.3 % (42.2-75.2); PLT 111 X1000 (130-400); RBC 2.79 XMIL (4.7-6.1); RDW 14.9 % (11.5-14.5); WBC 13.28 X1000 (4.8-10.8)
[2019-09-15] MEDS: PRILOSEC PO SCH (06:34)
[2019-09-15] MEDS: HUMULIN R SUBQ SCH ×4 (06:34→20:36)
[2019-09-15 06:56] LABS: CALCIUM 8.5 mg/dL (8.8-10.2); CREATININE 2.8 mg/dL (0.7-1.2); PHOSPHORUS 3.1 mg/dL (2.7-4.5); POTASSIUM 4.7 mmol/L (3.5-5.1)
--- NOTE | 2019-09-15 08:11 | Diag Imaging Result Doc PS360 ---
CHEST-1 VIEW - 09/15/2019 INDICATION: dyspnea COMPARISON: 09/14/2019 FINDINGS: Stable ill-defined reticulonodular infiltrates bilaterally. Stable cardiomegaly and pulmonary vascular congestion. No pneumothorax or large pleural effusion. IMPRESSION: No change from prior. Electronically signed by Jatin Peralta 09/15/2019 8:08 AM
[2019-09-15] MEDS ORDERED: LASIX IV ONE (08:34)
[2019-09-15] MEDS: LEVEMIR SUBQ SCH ×2 (08:41→20:30)
[2019-09-15] MEDS: OXY IR PO PRN ×3 (08:41→20:29)
[2019-09-15] MEDS: MIRALAX PO SCH ×2 (08:42→20:29)
[2019-09-15] MEDS: APRESOLINE PO SCH ×3 (08:42→20:29)
[2019-09-15] MEDS: ICAR-C PO SCH ×2 (08:42→20:29)
[2019-09-15] MEDS: PERICOLACE PO SCH (08:42)
[2019-09-15] MEDS: ZYVOX PO SCH ×2 (08:42→20:30)
[2019-09-15] MEDS: PERIDEX MT SCH ×2 (08:42→20:30)
[2019-09-15] MEDS: LOPRESSOR PO SCH ×2 (08:42→20:29)
[2019-09-15] MEDS: MAXIPIME 1 GM in NS 50 ML IV SCH (08:43)
[2019-09-15] MEDS: COLACE PO SCH ×2 (08:43→20:29)
--- NOTE | 2019-09-15 09:07 | ORTHOPAEDICS PROGRESS NOTE ---
DATE: 09/15/2019 SUBJECTIVE: Mr. Cotton appears a lot better this morning. He is up eating breakfast. He is not nauseated. He is conversing well and feeling better overall. OBJECTIVE: On right lower extremity examination, no drainage on the dressing this morning. He is able to move his toes well. He has not been on the knee a lot, getting it straight or flexing it secondary to pain. ASSESSMENT: 1. Status post right total knee arthroplasty. 2. Acute blood loss anemia. PLAN: I think Mr. Cotton has done a lot better after getting blood and have a little bit more time to come out from under the anesthesia. We do need to get him up walking and moving with therapy so therapy is going to come by today and try to get him up walking in the halls. He actually is alert this morning to where he is and to the date and who the President is, which is a change from yesterday as well. I think things are improving a lot. We will continue to keep an eye out on things but I think he is improving. We will take a look at him tomorrow. cc: MD Gideon Manzanares MD
--- NOTE | 2019-09-15 09:21 | EKG Report ---
Test Performed on : 09/15/2019 07:15:12 AM Test Reason : chest pain Blood Pressure : / mmHG Vent. Rate : 106 BPM Atrial Rate : 106 BPM P-R Int : 170 ms QRS Dur : 068 ms QT Int : 344 ms P-R-T Axes : 035 -10 181 degrees QTc Int : 456 ms Undetermined rhythm T wave abnormality, consider lateral ischemia Abnormal ECG When compared with ECG of 14-SEP-2019 10:21, (Unconfirmed) Current undetermined rhythm precludes rhythm comparison, needs review Nonspecific T wave abnormality, worse in Inferior leads T wave inversion now evident in Anterolateral leads Confirmed by Carlos MADSEN, Moe Menon ([id number]) on 09/16/2019 5:59:03 PM
[2019-09-15] MEDS: NS 1,000 ML IV SCH (10:09)
[2019-09-15] MEDS: LACTULOSE PO SCH ×2 (10:09→20:29)
[2019-09-15] MEDS ORDERED: CORDARONE 150 MG/D5W 150 MG/100 ML IV.SOLN IV ONE (10:45)
[2019-09-15] MEDS ORDERED: CORDARONE 360 MG/D5W 360 MG/200 ML IV.SOLN IV ONE (11:00)
[2019-09-15] MEDS: ZOFRAN PO PRN ×2 (11:10→21:30)
--- NOTE | 2019-09-15 16:18 | EKG Report ---
Test Performed on : 09/15/2019 10:14:57 AM Test Reason : elevated heart rate Blood Pressure : / mmHG Vent. Rate : 131 BPM Atrial Rate : 150 BPM P-R Int : 000 ms QRS Dur : 066 ms QT Int : 344 ms P-R-T Axes : 000 -07 178 degrees QTc Int : 507 ms Atrial fibrillation. with rapid ventricular response. Low voltage QRS T wave abnormality, consider inferolateral ischemia Abnormal ECG When compared with ECG of 15-SEP-2019 07:15, (Unconfirmed) Previous ECG has undetermined rhythm, needs review Confirmed by Carlos MADSEN, Moe Menon ([id number]) on 09/16/2019 5:59:16 PM
[2019-09-15] MEDS ORDERED: CORDARONE 540 MG in D5W 289.2 ML IV ONE (17:00)
--- NOTE | 2019-09-15 18:49 | PROGRESS NOTE ---
DATE: 09/15/2019 SUBJECTIVE: The patient continues without chest discomfort or shortness of breath. He developed atrial fibrillation with rapid ventricular rate this morning and was started on intravenous amiodarone. Efforts to mobilize the patient were postponed. He continues in atrial fibrillation, but now with better control rate. OBJECTIVE: Vital signs: Blood pressure 99/76, heart rate 103 with ECG monitor showing atrial fibrillation. Oxygen saturation 96%. Neck: There is no appreciable jugular distention. Chest: Clear to auscultation. Cardiac Exam: Reveals an irregular rate and rhythm without appreciable murmur or gallop. Extremities: Noteworthy for right thigh distended. There is trace pedal edema. LABORATORY DATA: Includes a white blood cell count 13.28, hematocrit 23.8, hemoglobin 7.7, platelet count 111,000. ProTime 18.6, INR 1.52. Sodium 132, potassium 4.7, chloride 101, carbon dioxide 18, BUN 53, creatinine 2.8. Glucose 242. IMPRESSION: 1. Paroxysmal atrial fibrillation with recurrent atrial fib with rapid ventricular rate. Heart rate better controlled on amiodarone. 2. Status post right knee replacement 09/11/2019. 3. Postoperative severe anemia requiring transfusion x4 units. 4. Stage 4 chronic kidney disease. 5. Hypertension. 6. Hyperlipidemia. 7. Type 2 diabetes mellitus. 8. Prostate cancer and previous prostate surgery. RECOMMENDATIONS: 1. Continue intravenous amiodarone. 2. Continue metoprolol. 3. Mobilize the patient. 4. Continue to monitor hematocrit. Resume anticoagulation once hematocrit consistently stable. cc: MD Gideon Phillip MD
--- NOTE | 2019-09-15 19:12 | PROGRESS NOTE ---
DATE: 09/15/2019 SUBJECTIVE: The patient is resting comfortably in bed. He complains of shortness of breath and palpitation. OBJECTIVE: Vital Signs: T-max 100 degrees, blood pressure 99/76, heart rate 103, respirations 17, O2 saturation 96% on 3 L nasal cannula. General: This is a chronically ill-appearing elderly male lying in bed in no acute distress. Heart: S1, S2 normal. Tachycardic. Lungs: Coarse breath sounds. Abdomen: Positive bowel sounds. Soft. Extremities: Trace pedal edema. Neurologic: The patient is alert and oriented x3. LABS: White blood cell count 13, hemoglobin 7.7, hematocrit 23, platelets 111,000. Sodium 132, potassium 4.7, chloride 101, CO2 18, BUN 53, creatinine 2.8, glucose 242. ASSESSMENT AND PLAN: 1. Acute hypoxemic respiratory failure. The x-ray shows infiltrates plus the patient has been febrile. We will treat the patient for pneumonia. 2. Suspected pneumonia. Continue with broad-spectrum antibiotics, bronchodilator therapy and supplemental oxygen. We will also add incentive spirometry. 3. Acute kidney injury on chronic kidney disease. Slowly improving. 4. Status post right total knee arthroplasty. Management as per the orthopedic surgeon. 5. Severe anemia secondary to blood loss. Improved. The patient received 2 units of packed red blood cells yesterday. 6. Atrial fibrillation with rapid ventricular response. The patient has been started on amiodarone drip by the theater technician. 7. Constipation. Continue with scheduled laxative therapy. 8. Uncontrolled insulin-dependent diabetes mellitus. Continue on Levemir 25 units subcutaneous twice a day. 9. Deep vein thrombosis prophylaxis. The patient's anticoagulation is on hold due to the bleeding that occurred the day before yesterday to the surgical site. cc: MD Gideon Roy MD MTDTc
[2019-09-15] MEDS ORDERED: LEVEMIR SUBQ SCH (21:00)
[2019-09-15] MEDS: DULCOLAX PR SCH (21:15)
[2019-09-16] MEDS: TYLENOL PO SCH ×5 (01:38→21:02)
[2019-09-16] MEDS: DULCOLAX PR SCH ×3 (01:38→21:40)
[2019-09-16] MEDS: NS 1,000 ML IV SCH (02:17)
[2019-09-16 06:19] LABS: INR 1.48; PROTIME 18.2 Seconds (11.0-16.0)
[2019-09-16] MEDS: HUMULIN R SUBQ SCH ×4 (06:19→21:41)
[2019-09-16] MEDS: PRILOSEC PO SCH (06:32)
[2019-09-16 06:39] LABS: BASO# 0.02 X1000 (0.0-0.2); BASO% 0.2 % (0.0-0.8); EOS# 0.04 X1000 (0.0-0.7); EOS% 0.4 % (0.0-10.0); HEMATOCRIT 22.9 % (42.0-52.0); HEMOGLOBIN 7.1 g/dL (14.0-18.0); IMM GRAN# 0.03 X1000 (0.0-0.04); IMM GRAN% 0.3 % (0.0-0.5); LYMPH# 0.98 X1000 (1.2-3.4); LYMPH% 9.6 % (20.5-51.1); MCV 87.1 FL (81-99); MONO# 1.22 X1000 (0.11-0.59); MPV 12.3 FL (7.4-10.4); NEUT# 7.91 X1000 (1.4-6.5); NEUT% 77.5 % (42.2-75.2); PLT 119 X1000 (130-400); RBC 2.63 XMIL (4.7-6.1); RDW 15.8 % (11.5-14.5)
[2019-09-16 06:47] LABS: ALBUMIN 2.7 g/dL (3.5-5.0); CALCIUM 8.4 mg/dL (8.8-10.2); CREATININE 2.8 mg/dL (0.7-1.2); PHOSPHORUS 3.8 mg/dL (2.7-4.5); POTASSIUM 4.4 mmol/L (3.5-5.1)
--- NOTE | 2019-09-16 07:10 | Diag Imaging Result Doc PS360 ---
EXAM: CT THORAX/ABD/PELVIS W/O CON 09/15/2019 HISTORY: abdominal pain/pneumonia TECHNIQUE: This exam was performed using automated exposure control, adjustment of mA or kV according to patient size, and/or use of iterative reconstruction technique. COMMENT: There are bilateral pleural effusions. This was not the case on the previous study of 05/27/2019. There are calcified mediastinal and hilar lymph nodes. There is extensive coronary calcification. There are patchy nodular alveolar and groundglass opacities present in the right upper lobe, middle lobe, and both lower lobes. This is much worse than on the previous study. The regional skeleton appears to be intact. ABDOMEN/pelvis: There are no previous studies available for comparison. There is no evidence of cholelithiasis. There is some perinephric stranding bilaterally but no evidence of hydronephrosis or nephrolithiasis is present. There is atherosclerotic calcification in the aorta without evidence of aneurysm. There is no evidence of bowel obstruction. The liver, spleen, and pancreas are grossly normal in appearance considering the lack of contrast. There is stool throughout much of the colon. There is some diverticulosis of the colon without evidence of diverticulitis. By history there has been previous appendectomy. There is subcutaneous edema in the flanks particularly inferiorly over the right luteal region and hip. There is no evidence of free fluid in the pelvis. The urinary bladder is not distended. There is no evidence of acute bony abnormality. IMPRESSION: 1. Bronchopneumonia. Pleural effusions. 2. Anasarca. 3. Constipation. Electronically signed by Camilo Madden 09/16/2019 7:08 AM
--- NOTE | 2019-09-16 07:22 | ORTHOPAEDICS PROGRESS NOTE ---
DATE: 09/16/2019 SUBJECTIVE: The patient is a pleasant, 74-year-old male, who is 5 days status post right total knee arthroplasty. The patient has developed acute blood loss anemia, requiring blood transfusion, as well as atrial fibrillation with rapid ventricular response, and acute kidney injury on chronic kidney disease. The patient also has developed acute hypoxemic respiratory failure, and is currently being treated for pneumonia. The patient is awake and alert this morning. He feels better. He is afebrile. PHYSICAL EXAMINATION: The patient is awake, alert, and cooperative with exam. He states he feels better this morning. He is afebrile. His right lower extremity wound looks good. There are no signs or symptoms of infection. He has no active bleeding. He had some evidence of ecchymosis and expected swelling. His calf is soft. He has active dorsiflexion and plantar flexion. LABORATORY DATA: His labs are pending this morning. His hemoglobin and hematocrit yesterday status post transfusion were 7.7 and 23.8. His white count improved to 13.28 from 15.92 the day prior, and his creatinine is improving as well, currently at 2.8, improved from 3.0 the day prior. IMPRESSION: 1. Postoperative day #5, status post right total knee arthroplasty. 2. Acute hypoxemic respiratory failure with suspected pneumonia. 3. Acute kidney injury on chronic kidney disease, improving. 4. Acute blood loss anemia. 5. Atrial fibrillation with rapid ventricular response. PLAN: At this point, the patient seems to be improving. He was placed on amiodarone per project officer. Will await his hemoglobin and hematocrit this morning. Will resume his Coumadin once his hemoglobin and hematocrit are stabilized. Will also resume physical therapy if medically cleared. cc: MD Renetta Cotton MD
[2019-09-16] MEDS: COLACE PO SCH ×2 (08:27→21:02)
[2019-09-16] MEDS: ICAR-C PO SCH ×2 (08:27→21:02)
[2019-09-16] MEDS: LOPRESSOR PO SCH ×2 (08:27→21:02)
[2019-09-16] MEDS: APRESOLINE PO SCH ×3 (08:27→21:02)
[2019-09-16] MEDS: PERICOLACE PO SCH (08:28)
[2019-09-16] MEDS: ZYVOX PO SCH ×2 (08:29→21:02)
[2019-09-16] MEDS: PERIDEX MT SCH ×2 (08:29→21:02)
[2019-09-16] MEDS: MIRALAX PO SCH ×2 (09:09→21:02)
[2019-09-16] MEDS: MAXIPIME 1 GM in NS 50 ML IV SCH (09:09)
[2019-09-16] MEDS: LACTULOSE PO SCH ×2 (09:09→21:42)
[2019-09-16] MEDS: LEVEMIR SUBQ SCH ×2 (09:10→21:48)
[2019-09-16] MEDS ORDERED: GAMUNEX-C 10% IV ONE (09:45)
[2019-09-16] MEDS: ZOFRAN IV PRN (09:45)
[2019-09-16 11:19] LABS: RETIC% 3.17 % (0.8-2.1); RETIC-HE 27.8 PG (28.2-36.6)
[2019-09-16] MEDS ORDERED: LASIX IV ONE (11:26)
[2019-09-16 12:18] LABS: ALB/GLOB RATIO 0.9; DIRECT BILIRUBIN 0.2 mg/dL (0.00-0.20); TOTAL BILIRUBIN 0.63 mg/dL (0.20-1.00); TOTAL PROTEIN 6.2 g/dL (6.3-8.3)
[2019-09-16] MEDS: ZOFRAN PO PRN (13:56)
--- NOTE | 2019-09-16 14:42 | PROVIDER PROGRESS NOTE ---
Progress Note Subjective: patient is complaining of constant nausea and vomiting, shortness of breath at rest, and nocturnal orthopnea. Objective: temperature 97.5, pulse 96, respirations 18, blood pressure 135/81, 02 sat 97% on 3 L nasal cannula. General: ill appearing white male in no acute distress. HEENT: normocephalic, atraumatic, conjunctiva pink, pupils equal and reactive. Mucous membranes moist. Skin: antoinette to right knee with TIFFANIE bandage in place. Neck: supple, no evidence of JVD. Cardiovascular: Irregular rate and rhythm, tachycardia. No murmur or gallop. Respiratory: right upper lobe anteriorly has scattered crackles, left upper lobe anteriorly has scattered wheezing. Abdomen: slightly firm, nontender, protuberant, Bowel sounds hypoactive : non-inspected Extremities: right lower extremity edema up to thigh, trace left lower extremity edema. Neurological: alert and oriented to person, place, and time. Labs: WBC 10.20, hemoglobin 7.1, hematocrit 22.9, platelet count 119, sodium 134, potassium 4.4, chloride 103, carbon dioxide 20, BUN 38, creatinine 2.8. Intake 2630, output 950. Impression: Acute on chronic kidney disease. His creatinine remains stable at 2.8 which is the high end of his historical baseline for the past year. He is making adequate urine. Blood pressure. In target. Fluid volume. Slightly expanded. We will stop his IV fluids and give 100mg lasix. Anemia. Low after 4 units PRBCs. Defer to surgeon. Electrolytes and acid base balance. Stable. Nutrition. Nausea at the moment. Ambulation. Defer to surgeons. Medication review. Remains on amiodarone drip.
--- NOTE | 2019-09-16 15:10 | PROGRESS NOTE ---
DATE: 09/16/2019 SUBJECTIVE: Patient continues without chest discomfort or shortness of breath on supplemental oxygen. He has been having problems with frequent loose stools. He transiently was back in sinus rhythm but appears to have gone back into atrial fibrillation again. OBJECTIVE: Blood pressure 165/99, heart rate 108, oxygen saturation 95% on nasal cannula oxygen at 3 L per minute. Auscultation of the chest reveals coarse breath sounds diffusely. Cardiac Examination: Reveals an irregular rate and rhythm without appreciable murmur or gallop. Extremities: Without edema. Right side is somewhat enlarged and tense relative to left thigh. Laboratory Data: Includes white blood cell count of 10.2, hematocrit 22.9, hemoglobin 7.1, platelet count 119,000. Prothrombin time 18.2, INR 1.5. Sodium 134, potassium 4.4, chloride 103, carbon dioxide 28, BUN 58, creatinine 2.8, glucose 105. IMPRESSION: 1. Paroxysmal atrial fibrillation with recurrent atrial fibrillation postoperatively. 2. Status post right knee replacement on 09/11/2019. 3. Postoperative severe anemia requiring transfusion x4 units thus far. 4. Stage 4 chronic kidney disease. 5. Hypertension. 6. Hyperlipidemia. 7. Type 2 diabetes mellitus. 8. Prostate cancer and previous prostate surgery. RECOMMENDATIONS: 1. Continue metoprolol. 2. Transition amiodarone to orally and try and maintain sinus rhythm. 3. Continue efforts to mobilize patient. 4. Continue to monitor hematocrit. Resume anticoagulation efforts once hematocrit is consistently stable. cc: MD Renetta Phillip MD
[2019-09-16] MEDS: CORDARONE PO SCH (16:59)
--- NOTE | 2019-09-16 17:03 | PROGRESS NOTE ---
DATE: 09/16/2019 SUBJECTIVE: The patient is resting comfortably in bed. He states that he has been nauseated all night and vomited several times. OBJECTIVE: Vital Signs: T-max 98.8 degrees, blood pressure 139/90, heart rate 120, respirations 18, O2 saturations 91% on 3 L nasal cannula, intake 2.6 L, output 650. General: This is a chronically ill-appearing elderly male lying in bed in no acute distress. Heart: S1, S2 normal. Irregularly irregular rhythm. Lungs: Coarse breath sounds bilaterally. Abdomen: Positive bowel sounds. Soft, obese, slightly distended. Extremities: 1+ edema bilaterally. Neuro: The patient is alert and oriented x4. LABS: White blood cell count 10, hemoglobin 7.1, hematocrit 22, platelets 119,000, retic count 3.1. Sodium 134, potassium 4.4, chloride 103, CO2 20, BUN 58, creatinine 2.8, glucose 105, albumin 3. ASSESSMENT AND PLAN: 1. Acute hypoxemic respiratory failure. The patient has bilateral lobe pneumonia. Will continue with the current antibiotic regimen. 2. Pneumonia. Continue with IV antibiotics, bronchodilator therapy, incentive spirometry and supplemental oxygen. Will consult with the fish egg packer. 3. Chronic kidney disease. Stable. Nephrology is following. 4. Severe anemia. The patient's hemoglobin and hematocrit have dropped again. No obvious source of blood loss is apparent at this time. The iron studies have been reviewed. Will consult with the seo manager. 5. Morbid obesity. Aware. 6. Atrial fibrillation. The patient is on oral amiodarone and Lopressor. Management as per the bdr. 7. Constipation. Will add Dulcolax suppositories to the patient's regimen. Initially he was refusing a suppository. He finally had a bowel movement yesterday. Will continue on the current bowel regimen. 8. Insulin-dependent diabetes mellitus. Continue on Levemir plus sliding scale insulin. 9. Deep vein thrombosis prophylaxis. Continue with SCDs. The anticoagulation is on hold due to the patient's persistent anemia. cc: Renetta Davila MD MTDD
--- NOTE | 2019-09-16 17:57 | HEMO/ONC CONSULTATION ---
DATE: 09/16/2019 REASON FOR CONSULTATION: Anemia. HPI: Mr. Cotton is a 74-year-old male with a history of stage 4 chronic kidney disease. Two weeks ago he had a scheduled right total knee replacement with previous knee arthroscopy per Dr. Calixto in the past. The patient was scheduled to be discharged when his labs showed a significant amount of anemia. Dr. Calixto believed he had developed acute blood loss anemia requiring blood transfusion. PAST MEDICAL HISTORY: Chronic kidney disease stage 4, atrial fibrillation with RVR, history of pneumonia, diabetes mellitus type 2, hypertension, obesity, prostate cancer, hyperlipidemia and GERD. PAST SURGICAL HISTORY: Arthroscopy to the right and left knees, left knee replacement, appendectomy, unspecified prostate surgery. SOCIAL HISTORY: The patient denies alcohol or illicit drugs. Former smoker quit over 30 years ago. ALLERGIES: Lisinopril and sulfa. HOME MEDICATIONS: Cozaar, Zocor, Luz-Colace, hydralazine, NovoLog, Lopressor, Coumadin, furosemide, methocarbamol, multivitamins and hydrocodone. REVIEW OF SYSTEMS: Pertinent positives are listed in HPI.Vital Signs: Temperature 98.8 degrees, pulse rate 120, respiratory rate 18, blood pressure 139/90, O2 saturation 91% on 3 L via nasal cannula, in 0/10 pain. PHYSICAL EXAMINATION: General: The patient is in no acute distress. HEENT: Sclerae anicteric. Conjunctivae pink. PERRLA. Oral mucosa normal. Cardiovascular: Irregular rate and rhythm tachycardic. No murmurs noted. Respiratory: Right crackles noted diminished otherwise. Abdomen: Slightly firm, nontender, protuberant. Bowel sounds hypoactive. Extremities: Right lower extremity edema up to the thigh. Trace left lower edema. Neurological: Alert and oriented x3. LABORATORY: WBCs 10.2, hemoglobin 7.1, hematocrit 22.9, platelet count 119,000, retic 3.17. Creatinine 2.8, iron 29, iron percent saturation 14, ferritin 124, LDH 310, vitamin B12 677 and folate 14.5. Chest abdomen and pelvis CT from yesterday shows bronchopneumonia, pleural effusions, #2 anasarca, #3 constipation. ASSESSMENT AND PLAN: 1. Acute blood loss anemia. The patient appears to have hematoma with swelling to his right leg. He may also have had blood loss during surgery. He had 4 blood transfusions. His iron is also low. He may benefit from an iron transfusion. We will continue to monitor. 2. Stage 4 kidney disease. Continue keeping him adequately hydrated. Nephrology has been consulted. Continue recommendations per Dr. Steiner. 3. Acute hypoxemic respiratory failure. Continue treating the patient for medical management for pneumonia. 4. Atrial fibrillation with rapid ventricular response, continue monitoring closely. He is in amiodarone drip. 5. DVT prophylaxis, due to the patient's bleeding he is not a candidate for anticoagulation at this moment. Jose amin and SCD's. Dictated by ALEXANDRA Perera for Luis E Rucker MD As above. Blood loss related anemia. Transfuse as you are doing. IV iron as needed outpatient. Luis E Rucker MD cc: MD Renetta Mccullough MD [facility]
[2019-09-16] MEDS ORDERED: CORDARONE 360 MG/D5W 360 MG/200 ML IV.SOLN IV ONE (18:39)
[2019-09-16] MEDS: OXY IR PO PRN (21:02)
--- NOTE | 2019-09-16 22:37 | PULMONOLOGY CONSULTATION ---
DATE: 09/16/2019 REQUESTING CLINICIAN: Dr. Davila. REASON FOR CONSULTATION: Hypoxemic respiratory failure and pneumonia. HISTORY OF PRESENT ILLNESS: Mr. Cotton is a 74-year-old male with COPD, immunoglobulin deficiency, gastroesophageal reflux disease, who was admitted to the hospital 09/11/2019 for a right total knee arthroplasty. The patient reports he initially did well following surgery but did have complications of GI bleeding, atrial fibrillation, nausea with acute on chronic renal insufficiency with CT scan revealing new pleural effusions with patchy bilateral infiltrates which was significantly worse than on CT scan of 05/27/2019. The patient's immunoglobulin levels were checked and were reduced at 550. He has received 20 grams of immunoglobulin. PAST MEDICAL HISTORY: 1. Chronic obstructive pulmonary disease. 2. Atrial fibrillation. 3. Chronic kidney disease. 4. Gastroesophageal reflux disease. 5. Diabetes mellitus. 6. Dyslipidemia. 7. Obesity. 8. Hypertension. 9. Prostate cancer with prior prostate surgery. 10. Status post appendectomy. 11. Prior left knee replacement. SOCIAL HISTORY: Previous tobacco use. Denies alcohol use. REVIEW OF SYSTEMS: Notable for cough with yellow sputum production, shortness of breath. PHYSICAL EXAMINATION: General: Reveals a well-developed, well-nourished male resting comfortably and in no distress. Vital Signs: Blood pressure 121/74, heart rate 117, respiratory rate 14, oxygen saturation 97% on nasal cannula. HEENT: Pupils are equal and reactive. Oropharynx appears clear. Neck: Supple. Chest: Reveals rhonchi bilaterally. Cardiac: S1, S2. Irregular rhythm. Abdomen: Obese and soft. Extremities: Reveal 1+ peripheral edema. LABORATORIES: Sodium 134, potassium 4.4, chloride 103, bicarbonate 20, BUN 58, creatinine 2.8. White blood count 10.20, hemoglobin 7.1, platelet count 119,000. Hemoglobin is 7.1, but has been as low as 6.2. IMPRESSION: 74-year-old with 1. Acute hypoxemic respiratory failure. 2. Gastroesophageal reflux with emesis. 3. Bilateral pneumonia. 4. Chronic obstructive pulmonary disease. 5. Acute blood loss anemia. 6. Atrial fibrillation. 7. Immunoglobulin deficiency with prior replacement therapy earlier this admission. PLAN: 1. Caution the patient about reflux symptoms and to not overeat his evening meals. 2. Continue bronchodilators. 3. Wean oxygen as tolerated. 4. Continue current antibiotic regimen. 5. Check immunoglobulin levels following replacement. cc: MD Renetta Mccarthy MD
[2019-09-17] MEDS: TYLENOL PO SCH ×4 (03:32→20:18)
[2019-09-17 06:13] LABS: BASO# 0.02 X1000 (0.0-0.2); BASO% 0.2 % (0.0-0.8); EOS# 0.08 X1000 (0.0-0.7); HEMATOCRIT 24.8 % (42.0-52.0); HEMOGLOBIN 7.7 g/dL (14.0-18.0); IMM GRAN# 0.02 X1000 (0.0-0.04); IMM GRAN% 0.2 % (0.0-0.5); LYMPH# 0.77 X1000 (1.2-3.4); LYMPH% 9.2 % (20.5-51.1); MONO# 0.96 X1000 (0.11-0.59); MONO% 11.5 % (1.7-9.3); NEUT# 6.48 X1000 (1.4-6.5); NEUT% 77.9 % (42.2-75.2); PLT 160 X1000 (130-400); RBC 2.85 XMIL (4.7-6.1); WBC 8.33 X1000 (4.8-10.8)
[2019-09-17] MEDS: PRILOSEC PO SCH (06:30)
[2019-09-17 06:41] LABS: ALBUMIN 2.6 g/dL (3.5-5.0); CALCIUM 8.6 mg/dL (8.8-10.2); CREATININE 2.7 mg/dL (0.7-1.2); PHOSPHORUS 3.8 mg/dL (2.7-4.5); POTASSIUM 4.3 mmol/L (3.5-5.1)
--- NOTE | 2019-09-17 07:38 | ORTHOPAEDICS PROGRESS NOTE ---
DATE: 09/17/2019 SUBJECTIVE: The patient is a 74-year-old male who is 6 days status post right total knee arthroplasty. The patient is being evaluated and has multiple medical problems, chronic medical problems, and also developed acute blood loss anemia requiring transfusion. He is currently undergoing evaluation of cardiac, pulmonary, and renal. He is feeling better. PHYSICAL EXAMINATION: The patient's right lower extremity, his wound looks good. There are no signs or symptoms of infection. Calf is soft. He has active dorsiflexion and plantar flexion. He does have some tenderness to palpation, tenderness to gentle movement of the knee. DIAGNOSTIC DATA: His hemoglobin and hematocrit this morning are 7.7 and 24.8. His WBC has normalized to 8.33. IMPRESSION: 1. Postoperative day number 6, status post right total knee arthroplasty. 2. Acute hypoxemic respiratory failure. 3. Bilateral pneumonia. 4. Chronic obstructive pulmonary disease. 5. Atrial fibrillation. 6. Immunoglobulin deficiency. PLAN: At this point, we will continue with physical therapy. Given the patient's increased stiffness in this knee, we will place him on CPM for range of motion exercises. We will await continued improvement. The patient is slow to mobilize with physical therapy, and I feel that the patient would benefit from inpatient rehabilitation. The patient and family are agreeable to this. We will begin working on rehab placement. cc: MD Noman Cotton MD
--- NOTE | 2019-09-17 07:53 | Diag Imaging Result Doc PS360 ---
FLAT/UPRIGHT ABD/1 VIEW CHEST - 09/17/2019 INDICATION: pneumonia/constipation TECHNIQUE: COMPARISON: 09/15/2019 FINDINGS: Stable cardiomegaly and pulmonary vascular congestion. Stable pulmonary nodule in the left lung. Stable hazy pulmonary edema in the lung bases. Stable platelike atelectasis in the right lung base. There is a nonobstructive bowel gas pattern. No free air or abnormal calcifications. No constipation. IMPRESSION: No change from prior. Pulmonary edema and atelectasis in the lungs. Electronically signed by Jatin Peralta 09/17/2019 7:51 AM
[2019-09-17] MEDS: HUMULIN R SUBQ SCH ×4 (08:51→20:30)
[2019-09-17] MEDS: LOPRESSOR PO SCH ×2 (09:01→20:18)
[2019-09-17] MEDS: OXY IR PO PRN ×2 (09:02→23:13)
[2019-09-17] MEDS: COLACE PO SCH (09:06)
[2019-09-17] MEDS: ZYVOX PO SCH ×2 (09:06→20:18)
[2019-09-17] MEDS: APRESOLINE PO SCH ×3 (09:06→20:18)
[2019-09-17] MEDS: ICAR-C PO SCH ×2 (09:07→20:18)
[2019-09-17] MEDS: CORDARONE PO SCH ×3 (09:07→16:24)
[2019-09-17] MEDS: PERICOLACE PO SCH (09:08)
[2019-09-17] MEDS: MIRALAX PO SCH (09:09)
[2019-09-17] MEDS: PERIDEX MT SCH ×2 (09:09→20:18)
[2019-09-17] MEDS: LEVEMIR SUBQ SCH ×2 (09:10→20:19)
[2019-09-17] MEDS: LACTULOSE PO SCH (09:11)
[2019-09-17] MEDS: DULCOLAX PR SCH ×2 (09:11→20:18)
[2019-09-17] MEDS: MAXIPIME 1 GM in NS 50 ML IV SCH (09:11)
--- NOTE | 2019-09-17 11:48 | PROGRESS NOTE ---
DATE: 09/17/2019 INTERVAL HISTORY: No acute events overnight. SUBJECTIVE: Mr. Cotton is feeling better. He denies any chest pain, shortness of breath, or cough. He still had an episode of vomiting yesterday. He continues to have multiple bowel movements. I discussed with him about antireflux measures and I answered all of his questions. His is at bedside. We discussed about anemia. We discussed about slowly starting blood thinners. We discussed about chronic kidney disease and anemia as well as his atrial fibrillation. VITALS: Temperature of 97.5 degrees, pulse 89, respiratory rate 17, blood pressure 129/89, saturating 97% on 2 L nasal cannula. PHYSICAL EXAMINATION: Not in acute distress. Oral cavity is moist. Lungs: Air entry bilaterally equal. No wheeze, rhonchi, or crackles. Cardiovascular: S1, S2 normal. Irregularly irregular. No murmur, rub, or gallop. Abdomen: Obese, soft, nontender. He has right lower extremity in an immobilizer with cooling pads. He has a significant swelling of the right lower extremity as compared to left with edema affecting entire right lower extremity. There is also tenderness around the right knee joint. He is able to lift both upper extremities above ground level and lower extremities above ground level as well. He has good flexion and extension in his left knee. He is able to perform flexion and extension at the right ankle as well as interphalangeal joints on the foot. LABS: Suggestive of hemoglobin of 7.7, platelets of 160,000. His electrolytes are suggestive of stable BUN, creatinine, and chronic kidney disease in the stage 4 range. His blood glucose is largely within acceptable range. No positive microbiological or imaging data except abdominal x- ray which suggests pulmonary edema and atelectasis in the lungs. ASSESSMENT AND PLAN: 1. Acute hypoxic respiratory failure due to acute pulmonary edema due to volume overload in the setting of chronic kidney disease as well as suspected bilateral lower lobe pneumonia. I weaned his oxygen down to 2 L and he is saturating well. Continue intravenous linezolid and intravenous cefepime, and lower it to oral antibiotics in the 24 hours or so. I encouraged the patient to use incentive spirometry. I will continue him on inhaled bronchodilator therapy. Appreciate pulmonology recommendations. 2. Chronic kidney disease stage 4. Currently, his BUN and creatinine appear to be stable. He received intravenous Lasix yesterday. Currently, there are no crackles on examination. I will continue to monitor him. 3. Acute blood loss anemia on top of chronic anemia, status post 4 units of packed red blood cells. This could be in the setting of blood loss sustained during surgery. Continue iron, carbonyl, ascorbic acid, and close monitoring of his hemoglobin. 4. Atrial fibrillation with rapid ventricular rate. He still appears to be in atrial fibrillation, though his rate is well controlled. Continue metoprolol and amiodarone as per cardiology recommendation. Considering his hemoglobin has stabilized, I will resume anticoagulation starting tonight. 5. Elective right total knee arthroplasty. Continue pain management with acetaminophen and oxycodone, and physical therapy as per orthopedic recommendations. I will start him on enoxaparin which would serve as deep venous thrombosis prophylaxis. 6. Others. His constipation seems to have resolved. His chronic obstructive pulmonary disease appears to be without any exacerbation. I will continue him on pantoprazole for chronic gastroesophageal reflux disease and I encouraged him to stay in upright position at least for 2 hours after each of his meals. I answered all his and his 's questions. Rehab placement is awaited. cc: Noman Edmonds MD
[2019-09-17] MEDS ORDERED: LASIX IV ONE (12:07)
[2019-09-17] MEDS ORDERED: INJECTAFER 750 MG in NS 250 ML IV ONE (12:24)
--- NOTE | 2019-09-17 13:23 | PROVIDER PROGRESS NOTE ---
Progress Note Subjective: He voices feeling better today. He had less nausea and shortness of breath the last 24 hours. He voices placement at [facility] at time of discharge. Objective: temperature 97.7, pulse 93, respiration 16, blood pressure 160/95, 02 sat 97% on 3 L nasal cannula. temperature 98.3, pulse 78, respirations 22, blood pressure 146/62, 02 sat 98% on room air. General: ill appearing white male in no acute distress. HEENT: normocephalic, atraumatic, conjunctiva pink, pupils equal and reactive. Mucous membranes moist. Skin: antoinette to right knee with TIFFANIE bandage in place. Neck: supple, 8cm JVD with Hepatojugular reflux Cardiovascular: Irregular rate and rhythm. No murmur or gallop. Respiratory: scattered rhonchi bilaterally anteriorly. Abdomen: slightly firm, nontender, less protuberant, Bowel sounds hypoactive. Improved from yesterday. : non-inspected Extremities: right lower extremity edema up to thigh, trace left lower extremity edema. Neurological: alert and oriented to person, place, and time. Labs: WBC 8.33, hemoglobin 7.7, hematocrit 24.8, platelet count 160, sodium 133, potassium 4.3, chloride 100, carbon dioxide 19, BUN 60, creatinine 2.7, albumin 2.6. Intake 2100, output 1125. Impression: Acute on chronic kidney disease. Creatinine is stable at 2.7 today which is in his historical baseline. He made 1100ml of urine with a 100mg dose of lasix. We will repeat this. Blood pressure. Slightly above target. Fluid volume. Slightly expanded. Will give another 100mg lasix. Anemia. Low, but improved. May require another unit RBCs. Electrolytes and acid base balance. Stable. Nutrition. Improved. Ambulation. Defer to surgeons. Medication review. Amiodorone now PO.
[2019-09-17] MEDS ORDERED: LOVENOX SUBQ SCH (16:00)
--- NOTE | 2019-09-17 17:14 | HEMO/ONC PROGRESS NOTE ---
DATE: 09/17/2019 SUBJECTIVE: Mr. Cotton is lying in bed this morning with his at bedside helping him to clean up. The patient states he has had ongoing nausea and vomiting all night. He has got the emesis basin between his legs where he has just recently been vomiting. He states he does continue to be nauseated and they have just given him some more medicine. He denies pain to his legs while he is lying comfortably. He does have a hematoma to his thigh. His right knee is bandaged. He denies any significant events overnight. We discussed possibly giving him iron today. OBJECTIVE: Vital Signs: Temperature 97.5 degrees, pulse rate 81, respiratory rate 18, blood pressure 130/89, O2 saturation 98% at 2 L via nasal cannula. He is in 4/10 pain. PHYSICAL EXAMINATION: General: He is in no acute distress. HEENT: Sclerae are anicteric. PERRLA. Oral mucosa is normal and moist. Cardiovascular: Irregular rate and rhythm. Normal S1, S2. Respiratory: Lung sounds are bilaterally clear, somewhat diminished. GASTROINTESTINAL: Abdomen is protuberant, soft, nontender.Extremities: Right lower leg with dressings. Mild edema noted. Left lower extremity with edema. Neurological: Alert and oriented x3. Able to move all 4 extremities. LABORATORY: WBCs 8.33, hemoglobin 7.7, hematocrit 24.8, platelet count 160,000. Haptoglobin 278, retic count 3.17. Sodium 133, creatinine is 2.7, calcium 8.6. RADIOLOGY: Abdominal x-ray: Pulmonary edema and atelectasis in the lungs. No constipation noted. ASSESSMENT AND PLAN: 1. Acute blood loss anemia. The patient is status post 4 blood transfusions. He continues to be anemic. His iron profile was low. We will proceed today with 1 dose of IV iron. He will continue to need transfusions as necessary for a hemoglobin less than 7. We will continue to monitor. 2. Stage [address] Steiner is following. He states the patient's creatinine is at his historical baseline. Continue his recommendations. 3. Acute hypoxemic respiratory failure. Continue treating the patient per medical management for pneumonia. The patient has been weaned down on oxygen and has continued to saturate well. He is improving from the standpoint. 4. Atrial fibrillation with RVR. He is rate controlled on amiodarone drip at this time. Cardiology is following. 5. Deep venous thrombosis prophylaxis. The patient is not currently on any anticoagulation. Keep him on KWASI hose or SCDs. Continue working with physical therapy to keep him moving. 6. Elective right total knee arthroplasty. Continue physical therapy and orthopedic recommendations. The patient is continuing to heal from his surgery. His right leg is significantly swollen up to his thigh. Continue management per Orthopedics. Dictated by ALEXANDRA Perera for Luis E Rucker MD As above. Acute blood loss anemia s/p surgery. S/p IV iron. S/P PRBC. H&H stable. Continue to monitor. Luis E Rucker MD cc: MD Noman Mccullough MD [facility]
--- NOTE | 2019-09-17 18:06 | PROGRESS NOTE ---
DATE: 09/17/2019 SUBJECTIVE: Patient denies chest discomfort or shortness of breath on room air. He reports feeling progressively better. He is starting to mobilize. OBJECTIVE: Vital Signs: Blood pressure 130/89, heart rate 81, oxygen saturation 98% on nasal cannula oxygen at 2 L/minute earlier. Currently on room air. Neck: There is no significant jugular distention. Chest: Clear to auscultation. Cardiac Exam: Reveals a regular rate and rhythm without appreciable murmur or gallop. Abdomen: Soft. Bowel sounds normal. Extremities: Without edema. EK lead EKG demonstrates sinus tachycardia with occasional premature supraventricular complex. LABORATORY DATA: Includes a white blood cell count 8.33, hematocrit 24.8, hemoglobin 7.7, platelet count 160,000. Sodium 133 potassium 4.3, chloride 100, carbon dioxide 19, BUN 60, creatinine 2.7. Glucose 108. IMPRESSION: 1. Paroxysmal atrial fibrillation with recurrent atrial fibrillation recently in postop setting. Patient now back in sinus rhythm. 2. Status post right knee replacement, 09/11/2019. 3. Postoperative severe anemia requiring transfusion of 4 units thus far. 4. Stage 4 chronic kidney disease. 5. Hypertension. 6. Hyperlipidemia. 7. Type 2 diabetes mellitus. RECOMMENDATIONS: 1. Continue metoprolol. 2. Continue oral amiodarone to try and maintain sinus rhythm. 3. Continue efforts to mobilize. 4. Once hematocrit is consistently stable, resume anticoagulation. cc: MD Noman Phillip MD
[2019-09-17] MEDS ORDERED: INSULIN PEN NEEDLES ONE (20:03)
--- NOTE | 2019-09-17 21:07 | PULMONOLOGY PROGRESS NOTE ---
DATE: 09/17/2019 SUBJECTIVE: The patient is awake, alert and conversant. He reports he did stand today on his knee and use the mechanical range of motion device for about 2 hours today. OBJECTIVE: The patient has been afebrile for the last 24 hours. Blood pressure 130/89, heart rate 81, respiratory rate 18, oxygen saturation 98% on 2 L per nasal cannula. HEENT: Pupils are equal and reactive. Oropharynx appears clear. Neck is supple. Chest reveals faint crackles in the lung bases. Cardiac exam: S1, S2. Abdomen is soft. Extremities without edema. DIAGNOSTIC DATA: Chest x-ray reveals faint increased interstitial markings with mild platelike atelectasis at the right base. LABORATORY DATA: Microbiology reveals no new data. White blood count 8.33, hemoglobin 7.7, platelet count 160,000. IMPRESSION: A 74-year-old with: 1. Acute hypoxemic respiratory failure with decreasing oxygen requirements. 2. Gastroesophageal reflux disease, with emesis during this hospitalization. 3. Bilateral pneumonia with radiographic improvement. 4. Chronic obstructive pulmonary disease. 5. Immunoglobulin deficiency, status post replacement. 6. Blood loss anemia, status post transfusion. 7. Atrial fibrillation. PLAN: 1. Continue to encourage safe reflux measures. 2. Continue bronchodilators. 3. Mobilize as tolerated. 4. Continue current antibiotic regimen. cc: MD Noman Mccarthy MD
[2019-09-18] MEDS: TYLENOL PO SCH ×5 (04:04→23:12)
[2019-09-18] MEDS: HUMULIN R SUBQ SCH ×4 (06:03→23:13)
[2019-09-18] MEDS: PRILOSEC PO SCH (06:03)
[2019-09-18 06:24] LABS: CALCIUM 8.8 mg/dL (8.8-10.2); CREATININE 2.9 mg/dL (0.7-1.2)
[2019-09-18 06:33] LABS: BASO# 0.02 X1000 (0.0-0.2); BASO% 0.3 % (0.0-0.8); EOS# 0.09 X1000 (0.0-0.7); EOS% 1.4 % (0.0-10.0); HEMATOCRIT 24.4 % (42.0-52.0); HEMOGLOBIN 7.5 g/dL (14.0-18.0); IMM GRAN# 0.04 X1000 (0.0-0.04); IMM GRAN% 0.6 % (0.0-0.5); LYMPH# 0.77 X1000 (1.2-3.4); LYMPH% 11.9 % (20.5-51.1); MCH 27.1 PG (27-31); MCHC 30.7 g/dL (33-37); MCV 88.1 FL (81-99); MONO# 0.88 X1000 (0.11-0.59); MONO% 13.6 % (1.7-9.3); MPV 11.4 FL (7.4-10.4); NEUT# 4.69 X1000 (1.4-6.5); NEUT% 72.2 % (42.2-75.2); PLT 196 X1000 (130-400); RBC 2.77 XMIL (4.7-6.1); RDW 15.6 % (11.5-14.5); WBC 6.49 X1000 (4.8-10.8)
[2019-09-18] MEDS: ZYVOX PO SCH ×2 (08:50→23:10)
[2019-09-18] MEDS: APRESOLINE PO SCH ×4 (08:50→23:09)
[2019-09-18] MEDS: ICAR-C PO SCH ×2 (08:50→23:10)
[2019-09-18] MEDS: PERIDEX MT SCH ×2 (08:50→23:10)
[2019-09-18] MEDS: LOPRESSOR PO SCH ×2 (08:50→23:09)
[2019-09-18] MEDS: CORDARONE PO SCH (08:50)
[2019-09-18] MEDS: MAXIPIME 1 GM in NS 50 ML IV SCH (08:50)
[2019-09-18] MEDS: LEVEMIR SUBQ SCH (08:50)
[2019-09-18] MEDS: PERICOLACE PO SCH (08:50)
[2019-09-18] MEDS: OXY IR PO PRN ×3 (08:56→23:12)
[2019-09-18] MEDS: LASIX PO SCH (08:56)
[2019-09-18] MEDS ORDERED: LOVENOX SUBQ SCH (10:32)
--- NOTE | 2019-09-18 12:07 | EKG Report ---
Test Performed on : 09/18/2019 11:52:47 AM Test Reason : Follow up heart rhythm Blood Pressure : / mmHG Vent. Rate : 080 BPM Atrial Rate : 267 BPM P-R Int : 000 ms QRS Dur : 084 ms QT Int : 482 ms P-R-T Axes : 000 -21 208 degrees QTc Int : 555 ms Critical Test Result: Long QTc Atrial fibrillation. ST & T wave abnormality, consider inferior ischemia ST & T wave abnormality, consider anterolateral ischemia Prolonged QT Abnormal ECG When compared with ECG of 15-SEP-2019 10:14, Vent. rate has decreased BY 51 BPM T wave inversion more evident in Anterior leads Confirmed by Carlos MADSEN, Moe Menon ([id number]) on 09/19/2019 7:30:58 AM
--- NOTE | 2019-09-18 12:24 | PROGRESS NOTE ---
DATE: 09/18/2019 INTERVAL HISTORY: No acute events overnight. He did have a drop in his blood glucose. Unfortunately, by the time I saw him he had received his morning insulin dose, and I have stopped his evening insulin dose. He was able to work with physical therapy. Mr. Cotton denies any chest pain, shortness of breath or cough. I turned his oxygen on and he was saturating 96%. I discussed with the nurse about checking his oxygen in some time. VITALS: Temperature of 98.2 degrees, pulse 101, respiratory rate 18, blood pressure 140/70. He is saturating 96% on room air. PHYSICAL EXAMINATION: General: Obese, not in any acute distress. Mouth: Oral cavity is moist. Lungs: Air entry bilaterally equal. No wheezes, rhonchi, crackles. Heart: S1, S2 normal. Irregularly irregular. No murmur or gallop. Abdomen: Soft, nontender. Extremities: He has right lower extremity swelling, as compared to left. Right lower extremity is currently supported by orthopedic brace. He is able to wiggle toes, both lower extremities. Neurologic: He is alert and oriented x3. He has intact dorsalis pedis pulses and intact circulation. LABS: Suggestive of hemoglobin of 7.5, WBC 6.4, platelet count of 196. He does have a sodium of 135. BUN of 70, creatinine of 2.9. MICROBIOLOGY: No new data. X-RAYS: No new imaging. ASSESSMENT AND PLAN: 1. Acute hypoxic respiratory failure due to acute pulmonary edema due to volume overload in the setting of chronic kidney disease, as well as bilateral lower lobe pneumonia, now improved. Continue intravenous antibiotics and incentive spirometry. Continue inhaled bronchodilator. 2. Chronic kidney disease, stage IV. Currently, BUN and creatinine appears to be stable. He is on oral Lasix. 3. Acute blood loss anemia on chronic anemia, status post 4 units of packed red blood cells, likely in the setting of blood loss sustained during surgery. Continue iron, ascorbic acid and follow up complete blood count tomorrow. He may need blood transfusion. 4. Atrial fibrillation with rapid ventricular rate. Repeat electrocardiogram. Continue metoprolol, amiodarone, and enoxaparin with close eye over blood count. I will start him on warfarin. 5. Elective right total knee arthroplasty. Continue pain management with acetaminophen, oxycodone and physical therapy. 6. Others. Constipation, chronic obstructive pulmonary disease, chronic gastroesophageal reflux disease currently stable. I will continue him on anti sequential compression devices and bronchodilators. DISPOSITION: Transfer patient to surgical floor. Plan of care discussed with the patient. His questions have been answered. We are awaiting rehab bed availability. cc: Noman Edmonds MD
[2019-09-18 12:31] LABS: INR 1.44; PROTIME 17.8 Seconds (11.0-16.0)
--- NOTE | 2019-09-18 12:42 | PROGRESS NOTE ---
DATE: 09/18/2019 SUBJECTIVE: The patient continues without shortness of breath or chest discomfort on supplemental oxygen per nasal cannula. He continues to be mobilized. OBJECTIVE: Vital Signs: Blood pressure 145/70, heart rate 100, oxygen saturation 95% on nasal cannula oxygen at 2 L/minute. Neck: There is no significant jugular venous distention. Lungs: Auscultation of the chest reveals coarse breath sounds bilaterally. Cardiac: Regular rate and rhythm without appreciable murmur or gallop. Extremities: Right thigh is no longer as tense as 2 days ago. There is no evidence of peripheral edema. LABORATORY AND DIAGNOSTIC DATA: Laboratory data includes a white blood cell count 6.49, hematocrit 24.4, hemoglobin 7.5, platelet count 196,000. Sodium 135, potassium 4.0, chloride 99, carbon dioxide 23, BUN 70, creatinine 2.9. ECG shows atrial fibrillation with nonspecific ST-T wave abnormality, QT interval is prolonged with QTc of 555. IMPRESSION: 1. Paroxysmal atrial fibrillation. 2. Status post right knee replacement on 09/11/2019 with postoperative severe anemia, requiring transfusion of 4 units. Hematocrit stable the last 24 hours. 3. Stage 4 chronic kidney disease. 4. Hypertension. 5. Hyperlipidemia. 6. Type 2 diabetes mellitus. RECOMMENDATIONS: 1. Continue metoprolol. 2. Continue amiodarone, but reduce dose. 3. Continue efforts to mobilize. 4. Given hematocrit has been consistently stable, resume anticoagulation. Given recent issue with postoperative bleeding, favor merely resuming warfarin, and allowing INR to prolong into therapeutic range. cc: MD Noman Phillip MD
[2019-09-18] MEDS: COUMADIN PO SCH (13:28)
--- NOTE | 2019-09-18 13:45 | HEMO/ONC PROGRESS NOTE ---
DATE: 09/18/2019 SUBJECTIVE: The patient had no acute events overnight. He denies pain, except for his leg. He states his pain in his leg is at rest and rest movement. Physical therapy is working with the patient to utilize leg. He complains of painful hematoma to the thigh. No other complaints verbalized. OBJECTIVE: Vital signs: Temperature 97.6 degrees, pulse rate 80, respiratory rate 18, blood pressure 113/73, O2 saturation 95% on nasal cannula at 2 L. General: On physical examination, the patient is in no acute distress. HEENT: Sclerae is anicteric. PERRLA. Oral mucosa is normal. Cardiovascular: Regular rate and rhythm. Normal S1, S2. Respiratory: Coarse breath sounds bilaterally. Gastrointestinal: Abdomen is protuberant, soft, nontender. Extremities: Right lower leg continues to have significant edema up to his thigh. His whole leg is tender to touch. Hematoma beneath right thigh. Left leg has SCDs on. Mild edema noted. Neurological: Alert and oriented x3. LABORATORY: WBCs 6.49, hemoglobin 7.5, hematocrit 24.4, platelet count 196,000. Creatinine 2.9. ASSESSMENT AND PLAN: 1. Acute blood loss anemia. The patient's hemoglobin and hematocrit has stabilized after 4 units of blood. He has also had one dose of IV iron. Cardiology has recommended restarting anticoagulation with Coumadin. Monitor closely. 2. Stage IV kidney disease. Dr. Steiner is following the patient and his creatinine is at his baseline. 3. Acute hypoxemic respiratory failure due to acute pulmonary edema and bilateral lower lobe pneumonia, now improved. Continue antibiotics per medical management. The patient is being weaned down on oxygen, atrial fibrillation with rapid ventricular response. The patient is rate controlled. The patient is started on Coumadin by Cardiology. 4. Deep vein thrombosis prophylaxis. The patient was started on Coumadin today. He also has sequential compression devices to his left leg. His right leg is bandaged. Physical therapy has worked with him to keep him moving. 5. Status post right total knee arthroplasty. Aware. Dictated by ALEXANDRA Perera for Luis E Rucker MD Patient seen and examined. H&H is relatively stable. Anticoagulation/DVT prophylaxis per orthopedics/cardiology. Monitor H&H and transfuse as needed. Plan to repeat IV iron in the week if possible. Luis E Rucker MD cc: MD Noman Mccullough MD [facility]
--- NOTE | 2019-09-18 15:00 | PROVIDER PROGRESS NOTE ---
Progress Note Subjective: he denies any urinary complaints. He says he feels better in the last 24 hours. His only complaint is minimal burning to his surgical site during physical therapy. Objective: temperature 98.2, pulse 101, respirations 18, blood pressure 145/70, 02 sat 95% on 2 L nasal cannula. General: ill appearing white male in no acute distress. HEENT: normocephalic, atraumatic, conjunctiva pink, pupils equal and reactive. Mucous membranes moist. Skin: antoinette to right knee with TIFFANIE bandage in place. Neck: supple, 6cm JVD. Cardiovascular: Irregular rate and rhythm. No murmur or gallop. Respiratory: clear with equal air entry anteriorly. Abdomen: soft, nontender, less protuberant, Bowel sounds active. : non-inspected Extremities: right lower extremity edema up to thigh and Trace pitting to bilateral hips. Neurological: alert and oriented to person, place, and time. Labs: WBC 6.49, hemoglobin 7.5, hematocrit 24.4, platelet count 196, sodium 135, potassium 4.0, chloride 99, carbon dioxide 23, BUN 70, creatinine 2.9. Intake 1220, output 2625. Impression: Acute on chronic kidney disease. His creatinine remains in his historical baseline. Hes not displaying any uremic complaints. Urine output has improved. Blood pressure. Stable. Fluid volume. Euvolemic. Lasix was scheduled (home dose). Anemia. Low, but stable. Defer to surgeon. Electrolytes and acid base balance. Stable. Nutrition. Improved. Ambulation. Defer to surgeons. Medication review. Lovenox was started.
[2019-09-18] MEDS: ZOFRAN IV PRN (16:22)
--- NOTE | 2019-09-18 20:01 | ORTHOPAEDICS PROGRESS NOTE ---
DATE: 09/18/2019 SUBJECTIVE: Mr. Cotton is a 74-year-old male who is 7 days status post right total knee arthroplasty. Since being in the hospital, he has been evaluated by multiple disciplinaries due to his chronic medical problems. He is currently being evaluated by cardiac, pulmonary, nephrology, and hematology. He states that he is feeling better since he has received his blood transfusion. He is being moved to the 4th floor today and there are plans to go to rehab soon. PHYSICAL EXAM: On his right lower extremity, his surgical incision is well appearing with no active drainage at this time. There is expected surrounded ecchymosis. There are no signs of infection. His calf is soft. He has active dorsiflexion, plantar flexion of his right foot. He does have movement of his toes and his sensation is intact. LABS: His most recent H H revealed hemoglobin of 7.5, hematocrit 24.4, which has remained around that since he received his blood transfusion. His creatinine has improved and is now 2.9, which is his baseline. IMPRESSION: 1. Postop day 7 of status post right total knee arthroplasty. 2. Acute respiratory failure. 3. Bilateral pneumonia. 4. Chronic obstructive pulmonary disease. 5. Atrial fibrillation. 6. Immunoglobulin deficiency. PLAN: At this point, he will continue his physical therapy. He has been placed in a continuous passive motion to encourage range of motion. He is being moved today to the 4th floor and should be going to rehab in the next few days. He has been slow to mobilize with physical therapy and would benefit from an inpatient rehab stay. Case management is currently working on rehab placement at this time. Dictated by ALEXANDRA Murry for Gideon Calixto MD cc: MD Noman Cotton MD
[2019-09-18] MEDS ORDERED: COUMADIN PO SCH (21:00)
[2019-09-18] MEDS: DULCOLAX PR SCH (23:11)
--- NOTE | 2019-09-19 07:33 | Diag Imaging Result Doc PS360 ---
EXAM: CHEST-PORTABLE 09/19/2019 HISTORY: abnormal exam TECHNIQUE: AP portable at [id number] COMMENT: The opacity in the right lower lobe has improved slightly since 09/17/2019. Otherwise are has been no significant change. IMPRESSION: Improved atelectasis versus pneumonia right lower lobe. Electronically signed by Camilo Madden 09/19/2019 7:31 AM
[2019-09-19 07:42] LABS: INR 1.66; PROTIME 19.9 Seconds (11.0-16.0)
[2019-09-19] MEDS: TYLENOL PO SCH ×4 (07:44→21:09)
[2019-09-19] MEDS: OXY IR PO PRN ×2 (07:44→23:05)
[2019-09-19] MEDS: PRILOSEC PO SCH (07:44)
[2019-09-19] MEDS: HUMULIN R SUBQ SCH ×4 (07:45→22:09)
[2019-09-19 08:02] LABS: CALCIUM 8.5 mg/dL (8.8-10.2); CREATININE 2.6 mg/dL (0.7-1.2); POTASSIUM 4.4 mmol/L (3.5-5.1)
[2019-09-19 08:44] LABS: BASO# 0.03 X1000 (0.0-0.2); BASO% 0.4 % (0.0-0.8); EOS# 0.06 X1000 (0.0-0.7); EOS% 0.7 % (0.0-10.0); HEMATOCRIT 24.2 % (42.0-52.0); HEMOGLOBIN 7.6 g/dL (14.0-18.0); LYMPH# 0.73 X1000 (1.2-3.4); MCH 27.9 PG (27-31); MCHC 31.4 g/dL (33-37); MONO# 0.91 X1000 (0.11-0.59); MONO% 11.2 % (1.7-9.3); NEUT# 6.36 X1000 (1.4-6.5); NEUT% 78.7 % (42.2-75.2); PLT 201 X1000 (130-400); RBC 2.72 XMIL (4.7-6.1); RDW 15.8 % (11.5-14.5); WBC 8.09 X1000 (4.8-10.8)
--- NOTE | 2019-09-19 09:24 | PULMONOLOGY PROGRESS NOTE ---
DATE: 09/18/2019 SUBJECTIVE: The patient is awake, alert, and conversant. He has been using the continuous passive range of motion device and has performed some transfers with physical therapy. He reports his breathing has improved. OBJECTIVE: Vital Signs: The patient has been afebrile for the last 24 hours. Blood pressure 115/69, heart rate 88, respiratory rate 16, oxygen saturation 96% on room air. HEENT: Pupils are equal and reactive. Oropharynx appears clear. Neck: Supple. Chest: Reveals occasional rhonchi bilaterally. Cardiac: S1-S2. Abdomen: Soft. Extremities: Reveal surgical dressings over the recent total knee arthroplasty. LABORATORIES: White blood count 6.49, hemoglobin 7.5, platelet count 196,000. Sodium 135, potassium 4.0, chloride 99, bicarbonate 23, BUN 70, creatinine 2.9. IMPRESSION: 1. Acute hypoxemic respiratory failure which has resolved. 2. Bilateral pneumonia with near-complete radiographic resolution. 3. Chronic obstructive pulmonary disease. 4. Immunoglobulin deficiency, status post replacement. 5. Atrial fibrillation. RECOMMENDATIONS: 1. Complete antibiotic course. 2. Continue bronchial hygiene. 3. Encourage safe reflux precautions. cc: MD Noman Mccrathy MD [facility]
[2019-09-19] MEDS: LEVEMIR SUBQ SCH (09:41)
[2019-09-19] MEDS: MAXIPIME 1 GM in NS 50 ML IV SCH (09:42)
[2019-09-19] MEDS: LOPRESSOR PO SCH ×2 (09:43→21:08)
[2019-09-19] MEDS: PERIDEX MT SCH ×2 (09:43→21:10)
[2019-09-19] MEDS: APRESOLINE PO SCH ×3 (09:43→21:08)
[2019-09-19] MEDS: LASIX PO SCH (09:43)
[2019-09-19] MEDS: COUMADIN PO SCH (09:43)
[2019-09-19] MEDS: PERICOLACE PO SCH (09:43)
[2019-09-19] MEDS: ICAR-C PO SCH ×2 (09:43→21:10)
[2019-09-19] MEDS: ZYVOX PO SCH ×2 (09:44→21:09)
[2019-09-19] MEDS: CORDARONE PO SCH (09:46)
--- NOTE | 2019-09-19 12:49 | PROVIDER PROGRESS NOTE ---
Progress Note Subjective: He voices no complaints, he is having less pain with therapy. Objective: temperature temperature 97.8, pulse 96, respirations 18, blood pressure 123/70, 02 sat 100% on room air. General: Elderly white male in no acute distress. HEENT: normocephalic, atraumatic, conjunctiva pink, pupils equal and reactive. Mucous membranes moist. Skin: antoinette to right knee with TIFFANIE bandage in place. Neck: supple, no JVD. Cardiovascular: Irregular rate and rhythm. No murmur or gallop. Respiratory: clear with equal air entry anteriorly. Abdomen: soft, nontender, less protuberant, Bowel sounds active. : non-inspected Extremities: right lower extremity edema below surgical site 2+ pitting and Trace pitting to bilateral hips. Neurological: alert and oriented to person, place, and time. Labs: WBC 8.09, hemoglobin 7.6, hematocrit 24.2, platelet count 201, sodium 129, potassium 4.4, chloride 97, carbon dioxide 21, BUN 65, creatinine 2.6. Intake 720, output 1900. Impression: Acute on chronic kidney disease. His creatinine remains in his historical baseline. Hes not displaying any uremic complaints. Urine output is adequate. Blood pressure. Stable. Fluid volume. Euvolemic. Anemia. Low, but stable. Defer to surgeon. Electrolytes and acid base balance. Stable. Nutrition. Improved. Ambulation. PT in place Medication review. No changes. adina
--- NOTE | 2019-09-19 13:29 | HEMO/ONC PROGRESS NOTE ---
DATE: 09/19/2019 SUBJECTIVE: Mr. Cotton states he is feeling much better today. His knee and upper thigh are less painful than they have been. He denies pain with palpation to his right leg. He tells me the bandage has been removed and that he is doing okay with physical therapy. He has no pain anywhere else. He has no other complaints. No significant events occurred overnight. OBJECTIVE: Vital Signs: Temperature 97.4 degrees, pulse rate 100, respiratory rate 16, blood pressure 131/71, O2 saturation 96% on room air. He is in 5/10 pain. Physical Examination: General: The patient is in no acute distress. Appears comfortable. HEENT: Pupils are PERRLA. Oral mucosa normal. Sclerae are anicteric. Respiratory: Occasional coarse breath sounds heard, mostly clear. Normal respiratory effort. Cardiovascular: Normal S1, S2. Heart rate and rhythm regular and tachycardic. Gastrointestinal: Protuberant, soft, nontender. Extremities: Surgical dressings are removed from the right knee. It is elevated at this time. Hematoma improving, edema improving. Left leg continues with SCD. Trace edema noted. Laboratory: WBC 8.09, hemoglobin 7.6, hematocrit 24.2, platelet count 201,000. INR 1.66. Sodium 129, creatinine 2.6, calcium 8.5. Radiology: Chest x-ray shows improved atelectasis versus pneumonia in the right lower lobe. ASSESSMENT AND PLAN: 1. Acute blood loss anemia. The patient's hemoglobin and hematocrit have stabilized since 4 doses of blood. However, his hemoglobin and hematocrit do remain low. The patient has had one dose of intravenous iron. We understand that the patient is going to rehab for a few weeks. We will follow up with him after rehab to continue to assess his anemia. The patient has been restarted on anticoagulation with Coumadin. We will be monitoring his blood count closely. 2. Stage [address] Steiner is following the patient. 3. Acute hypoxemic respiratory failure due to acute pulmonary edema and bilateral lower lobe pneumonia, now improved. 4. Atrial fibrillation with rapid ventricular response. The patient is rate controlled and has been restarted on Coumadin. 5. Deep venous thrombosis prophylaxis. Again, the patient is on Coumadin. He also has an sequential compression device to his left leg. His right leg is being managed by physical therapy. 6. Status post right total knee arthroplasty. Aware. Dictated by ALEXANDRA Perera for Luis E Rucker MD cc: MD Noman Mccullough MD
--- NOTE | 2019-09-19 15:23 | ORTHOPAEDICS PROGRESS NOTE ---
DATE: 09/19/2019 SUBJECTIVE: Mr. dunn is 8 days postop of a right total knee arthroplasty. He states that he is feeling better today, and plans on going to rehab in the next day or two. He has no complaints at this time. OBJECTIVE: Physical exam of his right lower extremity: His surgical incision is well appearing with no active drainage noted at this time. There is no surrounding redness or warmth to suggest a secondary infection at this time. He does have some expected surrounding ecchymosis. His calf is soft. He has active dorsiflexion and plantar flexion of his right foot. His sensation is intact to his foot, and he has full range of motion of his toes. LABS: His most recent hemoglobin and hematocrit is 7.6 and 24.2, which has remained the same over the last 4 days. IMPRESSION: 1. Postoperative day 8 of right total knee arthroplasty. 2. Acute respiratory failure. 3. Pneumonia. 4. Chronic obstructive pulmonary disease. 5. Atrial fibrillation 6. Immunoglobulin deficiency. PLAN: At this point, Mr. dunn will continue physical therapy. He is currently on the 4th floor, and the plan is for him to go to rehab in the next few days. He has actually been accepted to [facility], and we are waiting on clearance from the medical team for him to be transferred there. Dictated by ALEXANDRA Murry for Gideon Calixto MD cc: MD Noman Cotton MD
--- NOTE | 2019-09-19 15:38 | PROGRESS NOTE ---
DATE: 09/19/2019 INTERVAL HISTORY: No acute events overnight. Mr. Cotton is feeling better day by day. He is sitting in the chair by the bedside. He said he is needing some help to ambulate. He denies chest pain, shortness of breath, or cough. He is breathing well currently on room air. VITALS: Temperature 97.4 degrees, pulse 80, respiratory rate 16, blood pressure 130/70, saturating 98% room air. PHYSICAL EXAMINATION: Not in acute distress. Oral cavity is moist. Air entry bilaterally equal, no wheeze, rhonchi, crackles. S1 normal, no murmur, rub, or gallop.Abdomen: Soft, nontender. He has right lower extremity swelling and a bandage on the anterior aspect of right knee. He is sitting in the chair. He is alert and oriented x3. Input and output suggest he had a bowel movement 2 days ago. LABS: Suggestive of hemoglobin of 7.6, platelet 205,000. INR 1.6. Sodium 129, BUN 65, his creatinine 6.5, blood glucose 191. Microbiology, no data. IMAGING: Chest x-ray performed today suggests improved atelectasis versus pneumonia of right lower lobe. ASSESSMENT: 1. Acute hypoxic respiratory failure due to acute pulmonary edema due to volume overload in the setting of chronic kidney disease. 2. Bilateral lower lobe pneumonia. 3. Chronic kidney disease stage 4. 4. Acute blood loss anemia on chronic anemia. 5. Atrial fibrillation with rapid ventricular response. 6. Elective right total knee arthroplasty. 7. Constipation. RECOMMENDATION: 1. He should complete his antibiotic course tonight. He may not need any oral antibiotics on discharge. 2. His blood glucose is well controlled on current dose of insulin, which he could be discharged on. Insulin dose needs to be adjusted based on his oral intake in the future. 3. His INR has been progressively improving. He should resume his home warfarin regimen which is 5 mg every day and 7.5 mg on Monday and . 4. It is okay from Medicine perspective for patient to be discharged to rehab. Thank you for allowing us to take part in this patient's care. Please call us with any questions or concerns. cc: Noman Edmonds MD
[2019-09-19] MEDS: DULCOLAX PR SCH (21:10)
--- NOTE | 2019-09-19 21:38 | PULMONOLOGY PROGRESS NOTE ---
DATE: 09/19/2019 SUBJECTIVE: The patient is awake and alert, and reports his pain is better. He is ambulating with assistance. He denies dyspnea. Sputum production has resolved. OBJECTIVE: Vital Signs: The patient has been afebrile for the last 24 hours. Blood pressure 139/63, heart rate 63, respiratory rate 18, oxygen saturation 100% on room air. HEENT: Pupils are equal and reactive. Oropharynx appears clear. Neck: Supple. Chest: Good air entry bilaterally. No rhonchi, crackles, or wheezing. Abdomen: Soft. Extremities: Postsurgical bandage on the right knee. DIAGNOSTIC DATA: Chest x-ray reveals near-complete clearing of the right-sided pneumonia. IMPRESSION: A 74-year-old with: 1. Acute hypoxemic respiratory failure which has resolved. 2. Bilateral pneumonia with near-complete radiographic resolution. 3. Chronic obstructive pulmonary disease. 4. Immunoglobulin deficiency, status post replacement. 5. Atrial fibrillation. DISCUSSION: A 74-year-old with the problems outlined above. He continues to improve. He is now on room air. Sputum production has resolved. His chest x-ray has almost returned to normal. RECOMMENDATIONS: 1. Complete antibiotic course. 2. Continue bronchial hygiene. 3. Encourage safe reflux precautions. 4. From a pulmonary standpoint, he can be discharged to the rehab facility. cc: MD Noman Mccarthy MD [facility]
[2019-09-20] MEDS: TYLENOL PO SCH ×2 (02:26→06:21)
[2019-09-20] MEDS ORDERED: OXY IR PO PRN (06:19)
[2019-09-20] MEDS: PRILOSEC PO SCH (06:21)
[2019-09-20] MEDS: HUMULIN R SUBQ SCH (06:41)
--- NOTE | 2019-09-20 06:52 | ORTHOPAEDICS PROGRESS NOTE ---
DATE: 09/20/2019 SUBJECTIVE: The patient is a pleasant 74-year-old male, who is 9 days status post right total knee arthroplasty. He has continued to improve and feel better. Appears with no complaints. PHYSICAL EXAM: Right lower extremity: His wound looks good. There are no signs or symptoms of infection. He has active dorsiflexion, plantar flexion. Vital signs: Stable. LABS: His hemoglobin and hematocrit from yesterday was 7.6 and 24.2 and stabilized over the last couple of days. IMPRESSION: Postoperative day #9 status post right total knee arthroplasty. PLAN: At this point, we will plan on discharging to rehab today if he is cleared from all consultants. cc: MD Noman Cotton MD
[2019-09-20 07:30] LABS: INR 2.47; PROTIME 27.4 Seconds (11.0-16.0)
[2019-09-20 08:05] LABS: CALCIUM 8.8 mg/dL (8.8-10.2); CREATININE 2.7 mg/dL (0.7-1.2); POTASSIUM 4.6 mmol/L (3.5-5.1)
[2019-09-20] MEDS: ICAR-C PO SCH (10:26)
[2019-09-20] MEDS: APRESOLINE PO SCH (10:26)
[2019-09-20] MEDS: LASIX PO SCH (10:26)
[2019-09-20] MEDS: COUMADIN PO SCH (10:26)
[2019-09-20] MEDS: PERICOLACE PO SCH (10:26)
[2019-09-20] MEDS: LOPRESSOR PO SCH (10:26)
[2019-09-20] MEDS: CORDARONE PO SCH (10:26)
[2019-09-20] MEDS: PERIDEX MT SCH (10:27)
[2019-09-20] MEDS: LEVEMIR SUBQ SCH (10:27)
[2019-09-20] MEDS: OXY IR PO PRN ×2 (10:36→14:46)
[2019-09-20 11:22] VITALS: BP 143/63
--- NOTE | 2019-09-20 12:13 | DISCHARGE SUMMARY ---
ADMISSION DATE: 09/13/2019 DISCHARGE DATE: ADMITTING DIAGNOSES: 1. Degenerative arthritis of the right knee. 2. Chronic kidney disease. DISCHARGE DIAGNOSES: 1. Degenerative arthritis of the right knee status post right total knee arthroplasty. 2. Atrial fibrillation. 3. Anemia related to blood loss from surgery. 4. Chronic obstructive pulmonary disease. BRIEF HISTORY: Mr. Cotton is a pleasant male with a longstanding history of pain and discomfort in his right knee. He had continued pain and discomfort despite appropriate nonoperative treatment. It was decided for him to have a right total knee arthroplasty. Dr. Calixto performed his right total knee arthroplasty on 09/11/2019. HOSPITAL COURSE: The patient tolerated the procedure well and was then transferred to the floor. Upon being transferred to the floor, the patient's creatinine was noted to have increased and his hemoglobin and hematocrit was noted to have dropped. He received a total of 4 blood transfusions and Nephrology was consulted due to patient's acute kidney injury and chronic kidney disease history. He then developed acute respiratory distress and Pulmonology was consulted as well. He had a cardiology consult due to having atrial fibrillation with rapid ventricular response and he was also being followed by the hospitalist team to help manage his comorbidities. While being in the hospital, he received 4 units of packed red blood cells as well as fluid resuscitation. Hematology was also consulted due to patient's anemia. They believe that his anemia was also related to blood loss during surgery. Mr. Cotton was also treated for pneumonia and completed a course of IV antibiotics. On postop day 8, his hemoglobin and hematocrit had stabilized at hemoglobin 7.6 and hematocrit 24.4. His vital signs are stable at this time. Due to patient's prolonged hospital stay and slow to mobilize with physical therapy, it was determined that he would receive the best benefit from going to an inpatient rehab facility. He has a bed available at [facility] at this time. He has been cleared by Nephrology, Hematology, Pulmonology, Cardiology, and the hospitalist team for Discharge DISCHARGE MEDICATIONS: 1. He will continue his Coumadin and his INR is therapeutic at this time. This will also benefit him as DVT prophylaxis. 2. Percocet 5 mg 1 p.o. q.4-6 hours p.r.n. pain. 3. Current home medications. DISCHARGE INSTRUCTIONS: 1. He will be discharged to [facility] where he will work on mobilization with his right lower extremity. 2. Physical therapy will be consulted for full weightbearing and range of motion and gait training per total knee protocol. 3. Discontinue antoinette on 09/24/2019. 4. He will follow up in the office once he is discharged from rehab, which should be in about 3 to 4 weeks. 5. For any signs or symptoms of infection, he is to follow up in the office sooner than his scheduled appointment. His incision is to be kept clean and dry. Dictated by ALEXANDRA Murry for Gideon Calixto MD cc: MD Noman Cotton MD
--- NOTE | 2019-09-20 17:05 | NEPHROLOGY PROGRESS NOTE ---
DATE: 09/20/2019 SUBJECTIVE: Patient is sitting up in bed. He believes he will go to rehab today. OBJECTIVE: Vital Signs: Temperature 98.2 degrees, pulse 63, respiratory rate 18, blood pressure 156/69. Intake 450 mL. Output 1.1 L. General: Chronically ill-appearing, elderly gentleman sitting up in bed. Awake alert, no acute distress. HEENT: Normocephalic, atraumatic. JANNY. Neck: Supple without JVD. Cardiovascular: Irregularly irregular rhythm. No murmur. Pulmonary: Clear bilaterally. Abdomen: Soft with positive bowel sounds. : Not inspected. Extremities: He has dressings and abductor pillow to the lower extremity. Trace edema. Integumentary: Skin is warm and dry. Neurologic: Nonfocal. LAB DATA: Sodium 132, potassium 4.6, CO2 23, creatinine 2.7. ASSESSMENT AND PLAN: 1. Acute on chronic kidney disease. Renal function fairly stable. From a renal perspective we have no objections to discharge to rehab. We will plan to follow up with the patient in 2 to 3 weeks after discharge with labs in the interim. 2. Electrolytes, acid-base balance. These are acceptable. 3. Fluid volume. He is not overloaded. 4. Hypertension he has not had his morning medicines, controlled otherwise. Dictated by ALEXANDRA Nicole for Kvng Steiner MD cc: MD Noman Evans MD
--- NOTE | 2019-09-20 17:48 | PROVIDER PROGRESS NOTE ---
Progress Note Dr. Turner Progress Note/Pulmonary and or critical care We appreciated progress of care, Complications, change in diagnosis, and instructions to patient. Subjective: We note the level of consciousness, bed (chair) position, family presence (if any), level of lethargy, feeling of symptoms, and changes from baseline condition/symptom. Patient is lying in bed with no acute distress noted. He is on room air and tolerates well. He states he is feeling well except feeling a bit cold. He is waiting for being discharged to rehab. No family at the bedside. Objective: Vital Signs: We reviewed EMR current values for Pulse rate, Blood pressure, Pulse rate, r espiratory rate and Pulse oximetry. Also noted other values and trends if present (e.g. I/O, CVP). T 98, NH 69, RR 16, BP 143/63 and SaO2 98% on room air. Physical Examination: General: Lying in bed with no acute distress noted. HEENT: Normocephalic. Trachea midline. Mucosa pink and moist. Chest: Even and unlabored. Symmetrical excursion. Clear to auscultation bilaterally. CVS: S1 and S2 appreciated. Abdomen: Soft. Non-tender. Non-distended. Normoactive bowel sounds in all 4 quadrants. Extremities: No pedal edema. No cyanosis. No clubbing. Neuro: A/O x4. Speech fluent. Following commands. Labs and Radiology: Reviewed available labs and radiology values available at time of EMR review. Laboratory Results 09/19/19 09/20/19 09/20/19 22:08 06:21 06:30 PT 27.4 H D INR 2.47 D Sodium Potassium Chloride Carbon Dioxide Anion Gap BUN Creatinine Estimated GFR/1.73 m2 BUN/Creatinine Ratio Glucose POC Glucose 173 H 88 Calculated Osmolality Calcium 09/20/19 09/20/19 06:30 11:17 PT INR Sodium 132 L Potassium 4.6 Chloride 97 L Carbon Dioxide 23 L Anion Gap 12 BUN 68 H Creatinine 2.7 H Estimated GFR/1.73 m2 23 BUN/Creatinine Ratio 25 Glucose 103 POC Glucose 167 H D Calculated Osmolality 285 Calcium 8.8 Assessment: Acute hypoxemic respiratory failure. Resolved. Bilateral pneumonia with near-complete radiographic resolution. COPD. No acute exacerbation. Immunoglobulin deficiency, s/p replacement. Atrial fibrillation. S/P Right total knee arthroplasty on 09/11/19. Plan: Continue current treatment and supportive care per admitting and other teams on the case. Diuresis. GI and DVT prophylaxis. Physical therapy. Discharge planning per Admitting MD. Input was appreciated from Admitting MD and other teams on the case.
--- NOTE | 2019-09-20 20:42 | DISCHARGE SUMMARY ---
ADMISSION DATE: 09/13/2019 DISCHARGE DATE: 09/20/2019 DISCHARGE DISPOSITION: Rehab. DISCHARGE CONDITION: Hemodynamically stable. Mr. Cotton is alert and oriented x3. He denies any chest pain, shortness of breath or cough. We discussed about his atrial fibrillation, need for outpatient follow up with the key person. We also discussed about continuing with the physical therapy. We discussed about Coumadin and side effects of bleeding and I answered all of his questions. DISCHARGE DIAGNOSES: 1. Acute hypoxic respiratory failure due to acute pulmonary edema due to volume overload due to chronic kidney disease. 2. Bilateral lower lobe pneumonia. 3. Chronic kidney disease stage 4. 4. Acute blood loss anemia on chronic anemia. 5. Atrial fibrillation with rapid ventricular response, currently in normal sinus rhythm on Coumadin therapy. 6. Elective right total knee arthroplasty. 7. Constipation. OTHER DIAGNOSES: 1. History of essential hypertension. 2. History of insulin-dependent diabetes mellitus. 3. Hyperlipidemia. DISCHARGE MEDICATIONS: 1. Simvastatin 40 mg at nighttime. 2. Warfarin 5 mg daily. 3. Furosemide 40 mg daily. 4. Hydralazine 100 mg t.i.d. 5. Metoprolol 50 mg b.i.d. 6. Multivitamin with minerals 1 tablet daily. 7. Senna docusate one tablet daily. 8. Dulcolax 10 mg per rectal every nighttime for constipation. 9. Amiodarone 200 mg daily. 10. Insulin detemir 30 units subcutaneous daily. 11. Insulin human regular according to sliding scale with meals and at nighttime. 12. Iron carbonyl ascorbic acid tablet 1 tablet b.i.d. 13. Percocet 5 mg every 4 to 6 hours as needed. Prescription has been provided by the orthopedic team. 14. Omeprazole 20 mg daily. VITALS: At the time of discharge, temperature 98 degrees, pulse 69, respiratory 16, blood pressure 143/63 saturating 98% room air. PHYSICAL EXAMINATION: Mr. Cotton is not in acute distress. Oral cavity is moist. Lungs: Air entry bilaterally equal. No wheeze, rhonchi, or crackles. Cardiovascular: S1, S2 normal. Regular. No murmur, rub, or gallop. Abdomen: Soft, obese, nontender. He has a right knee arthroplasty with bandage and right lower extremity edema. Left lower, no left lower extremity edema. He was alert and oriented x3. LABS: At the time of discharge, hemoglobin 7.6, WBC 8000, and platelet 201,000. INR 2.4. Sodium 132, chloride 97, BUN 68, creatinine 2.7, GFR 23. Blood glucose 165. MICROBIOLOGY: During hospital admission and discharge, blood culture and wound culture did not have any growth. IMAGING DURING HOSPITAL ADMISSION: 1. Knee x-ray on September 11 did not have any complication after total knee arthroplasty. 2. Renal ultrasound on 09/12/2019 had diminished renal size without evidence of obstructive uropathy. Chest x-ray on September 13 did not have any pulmonary edema. Head CT on September 13 did not have any acute process. Chest x-ray on September 14 had probable mild interstitial pulmonary edema and cardiomegaly. 3. Chest, abdomen, and pelvis on September 15 for abdominal pain had bronchopneumonia, pleural effusions, anasarca, and constipation. Chest x-ray on September 19 had improved atelectasis versus pneumonia of right lower lobe. 4. Electrocardiogram on September 14 had sinus tachycardia with premature atrial contraction. Electrocardiogram on September 15 had atrial fibrillation with rapid ventricular response. CONSULTATION DURING HOSPITAL ADMISSION: 1. Orthopedic, Dr. Calixto. 2. Nephrology, Dr. Steiner. 3. Pulmonology, Dr. Vera. 4. Cardiology, Dr. Fox. PROCEDURES DURING HOSPITAL ADMISSION: September 11, the patient underwent right total knee arthroplasty with DePuy Attune size 8 posterior stabilized femur, size 8 tibial tray, 7 mm rotating platform tibial insert, and 38 mm medialized anatomic patella by Dr. Calixto. HOSPITAL COURSE SUMMARY: Mr. Cotton is a 74-year-old man who was admitted on September 11 for elective knee arthroplasty. He did have prior history of atrial fibrillation, chronic kidney disease stage 4, diabetes, essential hypertension. He was found to have elevated creatinine of 3.6, and so the hospitalist team was consulted for further management. While inside the hospital, he developed mild hypoxic respiratory failure due to pulmonary edema and bilateral lower lobe pneumonia. He also developed atrial fibrillation with rapid ventricular response and mild acute kidney injury on chronic kidney disease stage 4. He was treated with diuretics and antibiotics following which his hypoxia and pneumonia improved. He would not need any antibiotics at the time of discharge. He received 4 units of blood transfusion for acute blood loss anemia sustained during the surgery following which he will be discharged on iron multivitamin tablets. Currently blood hemoglobin has been stable. He also developed atrial fibrillation with rapid ventricular response and metoprolol and amiodarone controlled his ventricular response. Later on, he was normal sinus rhythm. His warfarin was resumed at the time of atrial fibrillation for CVA prophylaxis as well as for DVT prophylaxis for knee arthroplasty. At the time of discharge, he was only receiving half of his normal home insulin dose considering his poor oral intake. TIME SPENT: More than 30 minutes time was spent in preparing discharge summary plan of care discussed the patient. His questions have been satisfactorily answered. He should have outpatient follow up with Dr. Calixto. DISCHARGE FOLLOW-UP: 1. Follow up with Dr. Calixto in about 7 to 10 days' time for right knee wound evaluation. 2. Follow up with key person outpatient for atrial fibrillation and eventually stress test in 7 to 10 days' time. 3. Follow up with regular physician within 10 days' time and discuss about this course. 4. Closely monitor hemoglobin. Considering he was on anticoagulation, current hemoglobin is stable since last 72 hours with latest hemoglobin being 7.6. cc: Noman Edmonds MD
== END 2019-09-20 14:54 | DRG 469 ==
LOC: OPS 07:54 → 4N 07:54 → 2N 09-14 11:30 → 4N 09-18 16:31
PROVIDERS: ADMIT Internal Medicine; ATTEND Orthopaedic Surgery Adult Reconstructive Orthopaedic Surgery